=== PATIENT | male | born 1935 | race Caucasian/White ===

== ENCOUNTER 2025-05-24 12:35 | Inpatient (IN) | payer OTHER, MEDICARE, SELFPAY ==
[2025-05-24] VITALS (9 sets, daily range): BP systolic 91–128; BP diastolic 41–88; PULSE 98–129; RESP 20–96; TEMP 35.9–38.4; O2SAT 2–100
--- NOTE | 2025-05-24 12:40 | XR_ITS ---
EXAMINATION: AP chest single view TECHNIQUE: AP portable semiupright chest single view Date and time: May 24, 2025, 1321 hours, comparison December 15, 2014 INDICATION: Chest pain today. FINDINGS: Normal heart size The lungs are clear. Prominent osteopenia Minor subsegmental atelectasis left base IMPRESSION: Minor subsegmental atelectasis left base
--- NOTE | 2025-05-24 12:42 | XR_ITS ---
Examination: CT brain head without contrast. 2-D sagittal coronal reconstructions Date and time of exam: May 24, 2025, 1605 hours, comparison August 02, 2023 CTDI: vol (mGy): 47.2 DLP: (mGycm): 937 Technique: Multiple CT axial sections of the brain have been obtained, 5 mm slice thickness. Contrast has not been administered. 2-D sagittal, coronal reconstructions have been obtained Low dose protocols were performed. One or more of the following dose reduction techniques were used; automated exposure control, adjustment of the mA and/or KV according to patient size, use of iterative reconstruction technique. 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
--- NOTE | 2025-05-24 12:43 | EDNOTE_ITS ---
Altered Mental Status RME/HPI General Chief Complaint: Altered Mental Status Stated Complaint: AMS Time Seen by Provider: 05/24/25 12:40 Arrival date/time: 05/24/25 12:35 RME / HPI RME / HPI narrative: 89 year old male presents to the ED BIBA from home for evaluation of altered mental status today. Per medics, family on scene reported patient was at his usual state of health this afternoon when he suddenly became unresponsive. Additionally stated the patient has had decreased appetite for several days. Medics state when they arrived, the patient was found sitting on a recliner, cold to touch, skin mottled, and only responsive to pain. Prehospital BS 176. On arrival to ED, patient is only responsive to pain, unable to obtain any additional history. Related Data Home Medications ?Medication ?Instructions ?Recorded ?Confirmed ascorbic acid (vitamin C) 500 mg 500 mg PO QDAY SUPPLE MENT #0 tabs 07/11/14 tablet (Vitamin C) Previous Rx's ?Medication ?Instructions ?Recorded omeprazole 40 mg capsule,delayed 40 mg PO QDAY GERD ## 60 09/03/13 release Amox Tr/Potassium Clavulanate * 1 tab PO BID #14 tabs 09/10/14 (AUGMENTIN 875/125 *) doxycycline hyclate 100 mg capsule 100 mg PO BID #14 c aps 09/10/14 (Vibramycin) Zofran 4 mg ODT 1 tab PO q4hprn nausea #10 t abs 11/10/14 ibuprofen 600 mg tablet 600 mg PO Q8H PRN pain #30 t abs 08/02/23 Allergies Allergy/AdvReac Type Severity Reaction Status Date / Time codeine Allergy Severe Nausea/Vomi Verified 08/30/14 14:39 tiing promethazine Allergy Mild Verified 09/01/14 23:18 Review of Systems Review of Systems ROS Unobtainable: unobtainable due to mental status Past Medical History Past Medical History RESPIRATORY: Positive Asthma GASTROINTESTINAL: Positive Hiatal Hernia ENT: Positive Cataracts Social History SMOKING STATUS: Unknown if ever smoked ED Exam Narrative Physical exam: GENERAL APPEARANCE: Responds to painful stimuli, well-developed, well-nourished HEENT: Normocephalic, atraumatic; pupils equal, round, reactive to light; EOMI; mucous membranes pink, moist; oropharynx clear NECK: Supple LUNGS: CTABL; no wheezes, no rales, no rhonchi HEART: Tachycardic, regular rhythm; normal S1, S2; no murmurs ABDOMEN: non distended; normal BS; soft, no tenderness, no guarding, no rebound; no masses, no organomegaly, no hernia EXTREMITIES: atraumatic; no edema NEUROLOGIC: Responds to painful stimuli SKIN: Pale, mottled, cool skin. The upper left thigh and buttock has a large necrotic plaque with raised edges, measuring 25cm x 15cm. The medial thigh of the right leg is indurated with multiple <1cm areas of necrosis, buttocks covered in feces, the erythema induration and necrosis does not extend to his groin or scrotum Course Quality Measures Current suspected stage: severe sepsis Possible source: skin/soft tissue Blood cultures ordered: completed in ED Antibiotic ordered: Yes Pertinent labs: 05/24/25 05/24/25 12:48 16:48 Lactic Acid 5.6 H* mMol/L 4.3 H* mMol/L (0.4-2.0) (0.4-2.0) Procalcitonin 0.56 H ng/ml (0.0-0.49) sepsis Orders Category Date Time Status CT Screening NOW Care 05/24/25 12:[address] Screening NOW Care 05/24/25 13:11 Active Campaign Fundraiser NOW Care 05/24/25 12:40 Active EKG (ED ONLY) *Do not use* NOW Care 05/24/25 12:[address] abdomen pelvis w con Stat Exams 05/24/25 13:[address] head/brain wo con Stat Exams 05/24/25 12:42 Completed EKG (ED Only) Stat Exams 05/24/25 12:40 Ordered XR chest 1V portable Stat Exams 05/24/25 12:40 Completed ABG [Arterial Blood Gas] Stat Lab 05/24/25 13:36 Completed Ammonia Stat Lab 05/24/25 12:48 Completed B-Type Natriuretic Peptide Stat Lab 05/24/25 12:48 Completed Blood Culture (Lab) Stat Lab 05/24/25 12:48 Received CBC Stat Lab 05/24/25 12:48 Completed Comprehensive Metabolic Panel Stat Lab 05/24/25 12:48 Completed Lactate (Lactic Acid) Stat Lab 05/24/25 12:48 Completed Lactic Acid, 3 HR Stat Lab 05/24/25 16:48 Completed Lipase Stat Lab 05/24/25 12:48 Completed Magnesium Stat Lab 05/24/25 12:48 Completed Partial Thromboplastin Time Stat Lab 05/24/25 12:48 Completed Procalcitonin Stat Lab 05/24/25 12:48 Completed Prothrombin Time with INR Stat Lab 05/24/25 12:48 Completed Troponin I Stat Lab 05/24/25 12:48 Completed Urinalysis Stat Lab 05/24/25 13:55 Completed Urine Culture Stat Lab 05/24/25 13:55 Received Acetaminophen Ivpb [Ofirmev Inj] Med 05/24/25 14:15 Discontinued 1,000 mg in 100 ml IV X1 Piper/Tazo 3.375 gm Premix [Zosyn] Med 05/24/25 14:11 Discontinued 3.375 gm in 50 ml IV X1 Sodium Chloride 0.9% 1000 ml [Ns] 1,000 ml Med 05/24/25 12:41 Discontinued IV 999 mls/hr Sodium Chloride 0.9% 1000 ml [Ns] 1,000 ml Med 05/24/25 14:17 Discontinued IV 999 mls/hr Vancomycin/Ns 1 gm Ivpb 200 ml Med 05/24/25 14:11 Discontinued IV X1 Vital Signs Vital signs: Vital Signs Temperature 101.1 F H 05/24/25 12:41 Pulse Rate 128 H 05/24/25 12:41 Respiratory Rate 25 H 05/24/25 12:41 Blood Pressure 91/41 L 05/24/25 12:41 Oxygen Delivery Method Oxy Mask 05/24/25 12:41 Oxygen Flow Rate 15 05/24/25 12:41 Altered Mental Status MDM Narrative MDM Narrative:: Gilda Capps am scribing for and in the presence of Dr. Carroll. Patient data External records reviewed:: [facility] previous records and EMS form Clinical information provided by:: EMS Social determinants that could affect healthcare access:: none Patient has the following chronic illnesses:: Per EMR review, pt has documented history of dementia How is presenting disease/condition affected by chronic disease/condition?: exacerbated by Evaluation data The following diagnostics were reviewed and interpreted by me:: lab results, radiology exam(s) and EKG tracing(s) (EKG @ 12:44 PM, sinus tachycardia with occasional ventricular premature complexes, rate 128, no STEMI. ) Lab and/or radiology exams considered but not ordered:: None Interpretation Summary: Ordering Physician: Ananya Carroll MD Date of Service: 05/24/25 Procedure(s): XR chest 1V portable Accession Number(s): [id number] cc: Anish Diamond MD; Ananya Carroll MD~ EXAMINATION: AP chest single view TECHNIQUE: AP portable semiupright chest single view Date and time: May 24, 2025, 1321 hours, comparison December 15, 2014 INDICATION: Chest pain today. FINDINGS: Normal heart size The lungs are clear. Prominent osteopenia Minor subsegmental atelectasis left base IMPRESSION: Minor subsegmental atelectasis left base Dictated By: Anish Diamond MD Signed By: <Electronically signed by Anish Diamond MD in OV> 05/24/25 1337 Medications / Prescriptions Medications or Prescriptions considered but not ordered:: None Medication administrations:: Medication Administration History Discontinued Medications Sodium Chloride (Ns) 1,000 mls @ 999 mls/hr IV .Q1H1M ONE Stop: 05/24/25 13:41 Last Infusion: 05/24/25 13:58 Dose: Infused Documented By: Admin: 05/24/25 13:03 Dose: 999 mls/hr Documented By: ER Vancomycin/Sodium Chloride (Vancomycin/Ns 1 Gm Ivpb) 200 mls @ 120 mls/hr IV X1 ONE Stop: 05/24/25 15:50 Last Infusion: 05/24/25 17:30 Dose: Infused Documented By: Admin: 05/24/25 15:48 Dose: 120 mls/hr Documented By: ER Piperacillin/Tazobactam/Dextrose (Zosyn) 3.375 gm in 50 mls @ 100 mls/hr IV X1 ONE; Protocol Stop: 05/24/25 14:40 Last Infusion: 05/24/25 15:46 Dose: Infused Documented By: Admin: 05/24/25 15:15 Dose: 100 mls/hr Documented By: ER Acetaminophen (Ofirmev Inj) 1,000 mg in 100 mls @ 250 mls/hr IV X1 ONE Stop: 05/24/25 14:38 Last Infusion: 05/24/25 15:17 Dose: Infused Documented By: Admin: 05/24/25 14:55 Dose: 250 mls/hr Documented By: GADIEL Sodium Chloride (Ns) 1,000 mls @ 999 mls/hr IV .Q1H1M ONE Stop: 05/24/25 15:17 Last Infusion: 05/24/25 15:46 Dose: Infused Documented By: Admin: 05/24/25 15:03 Dose: 999 mls/hr Documented By: GADIEL See above Consultations Consultation(s) initiated? (list below): Yes Consultation #1 (Physician, Specialty, Details): See MDM Diagnosis Most likely diagnosis given after review of the tests above:: Sepsis Pneumonia Cellulitis Admission Indicated Admission indicated?: indicated Admission Request Was there a request for admission?: Yes Admission Attestation Admission request attestation: Discussed case with [] from Hospitalist service regarding admission. Discussed patients ED course, exam findings, labs, and radiology results. The Hospitalist [agrees,declines] to accept the patient for admission. Disposition Plan Disposition Plan: Admit Discharge Plan Plan Patient Disposition: Admit Acute Care w/in Hospital Prescriptions/Referrals Prescriptions/Med Rec: No Action omeprazole 40 MG capsule,delayed release(DR/EC) 40 mg PO QDAY Qty: 60 0RF ascorbic acid (vitamin C) [Vitamin C] 500 MG tablet 500 mg PO QDAY Qty: 0 Amox Tr/Potassium Clavulanate * (AUGMENTIN 875/125 *) 1 TAB tablet 1 tab PO BID Qty: 14 0RF doxycycline hyclate [Vibramycin] 100 MG capsule 100 mg PO BID Qty: 14 0RF Rx Instructions: FOR INFECTION Zofran 4 mg ODT 1 tab PO q4hprn nausea Qty: 10 0RF ibuprofen 600 mg tablet 600 mg PO Q8H PRN (Reason: pain) Qty: 30 0RF Referrals: No Primary/Family,Physician [Primary Care Provider] - In 1 week Problem List Clinical Impression: Sepsis, Pneumonia, Cellulitis Patient/Caregiver Discharge Instructions Print Language: Kiswahili Stand Alone Forms: Melinda Award Info., Patient Portal Info Letter
[2025-05-24] MEDS: SODIUM CHLORIDE 0.9% 1000 ML 1,000 ML 999 ML IV ×2 (13:03→15:03)
--- NOTE | 2025-05-24 13:10 | XR_ITS ---
Examination: CT abdomen with intravenous contrast CT pelvis with intravenous contrast 2-D coronal reconstructions 2-D sagittal reconstructions Date and time of exam: May 24, 2025, 1610 hours, comparison November 10, 2014 INDICATIONS: Sepsis alert, skin necrosis in the groin region. CTDI: vol (mGy) 9.22 DLP: (mGycm) 623 Technique: Multiple axial sections of the abdomen and pelvis have been obtained. 64 slice high-resolution scanner used. 3 mm axial sections have been obtained, post intravenous injection 40 cc [id number] 2-D sagittal, coronal reconstructions obtained. Low dose protocols were performed. One or more of the following dose reduction techniques were used; automated exposure control, adjustment of the mA and/or KV according to patient size, use of iterative reconstruction technique. Findings: Significant pneumonia left base Retrocardiac gastric hernia Liver irregular in contour Absent gallbladder No common bile duct stones Spleen not enlarged Fatty replacement and atrophy pancreas Bilateral renal cysts, the largest left kidney 7 cm Aorta normal size No bowel obstruction Colonic diverticulosis, no diverticulitis Moderate stool in the rectum Moderate prostatomegaly Urinary bladder wall shows thickening, bladder contracted Edema in the subcutaneous fatty tissue medial thigh with skin thickening No soft tissue abscess Chronic erosion posterior left iliac bone, axial image 189, measuring 11 mm, noted on the 2014 study IMPRESSION: Significant pneumonia left base Cirrhosis pattern Bilateral benign renal cysts Mild thickening of the urinary bladder wall Cellulitis pattern in the medial left upper thigh No soft tissue abscess Negative for osteomyelitis
--- NOTE | 2025-05-24 13:10 | PC.NURSE ---
at bedside states she called EMS due to she is no longer to take care of patient. states that patient is stubborn and has not been seeking medical attention; states that patient has no medical hx, and takes no Rx medications.
[2025-05-24 13:11] LABS: Basophils # (Auto) 0.1 Thou/mm3 (0.0-0.2); Basophils % (Auto) 0 % (0-2.5); Eosinophils # (Auto) 0.0 Thou/mm3 (0.0-0.5); Eosinophils % (Auto) 0 % (0-10); Hematocrit 51.2 % (41.0-53.0); Hemoglobin 16.9 g/dL (13.5-16.0); Immature Granulocytes Auto 0.47 Thou/mm3 (0.00-0.00); Lymphocytes # (Auto) 1.1 Thou/mm3 (1.0-4.8); Lymphocytes % (Auto) 6 % (10-50); Mean Corpuscular HGB Conc 33.0 g/dl (31.0-37.0); Mean Corpuscular Hemoglobin 30.8 pg (25.0-35.0); Mean Corpuscular Volume 93 fL (80-100); Monocytes # (Auto) 3.8 Thou/mm3 (0.0-0.8); Monocytes % (Auto) 20 % (0-12); Neutrophils # (Auto) 13.2 Thou/mm3 (1.8-7.7); Neutrophils % (Auto) 71 % (37-80); Nucleated Red Blood Cell # 0.02 Thou/mm3 (0.00-0.00); Nucleated Red Blood Cell % 0 /100 WBC (0); Platelet Count 235 Thou/mm3 (140-440); RDW Standard Deviation 48.6 fL (35.1-43.9); Red Blood Count 5.48 Miln/mm3 (4.50-5.90); White Blood Count 18.6 Thou/mm3 (3.8-10.6)
[2025-05-24 13:13] LABS: Lactate (Lactic Acid) 5.6 mMol/L (0.4-2.0)
[2025-05-24 13:35] LABS: Ammonia 49 uMol/L (11-32)
[2025-05-24 13:43] LABS: Base Excess -8 (-3-3); HCO3 15 mEq/L (20-26); Inspired O2, VO2 Liters 15 L/min; O2 Saturation 99 % (91-98); PCO2 25 mmHg (32.0-48.0); PO2 153 mmHg (83-108); pH, Arterial 7.39 (7.35-7.45)
[2025-05-24 13:50] LABS: B-Type Natriuretic Peptide 49 pg/mL (0-100)
[2025-05-24 14:04] LABS: Collection Type, Urine Catheter
[2025-05-24 14:07] LABS: Allen Test Performed/OK; Puncture Site Left Radial
[2025-05-24 14:08] LABS: INR 1.4 (0.9-1.3); Partial Thromboplastin Time 33.3 Seconds (22.0-36.0); Prothrombin Time 14.6 Seconds (9.0-12.2)
[2025-05-24 14:34] LABS: Bacteria,Urine Rare; Bilirubin,Urine Negative (Negative); Blood,Urine Negative (Negative); Color,Urine Yellow (Lt Yel-Yel); Glucose, Urine Negative (Negative); Granular Casts,Urine 1 /hpf (0-1); Hyaline Casts,Urine 1 /hpf (0-1); Ketones,Urine Negative (Negative); Leukocyte Esterase,Urine Negative (Negative); Nitrite,Urine Negative (Negative); PH,Urine 6.0 (5.0-7.0); Protein,Urine 1+ (Neg - Trace); RBC,Urine 3 /hpf (0-3); Specific Gravity,Urine 1.023 (1.001-1.035); Squamous Epithelial Cell,Urine 3 /hpf (0-5); Urobilinogen,Urine 4.0 mg/dL (0.0-1.0); WBC,Urine 1 /hpf (0-5)
[2025-05-24 14:36] LABS: Clarity,Urine Hazy (Clear/Hazy)
[2025-05-24] MEDS: ACETAMINOPHEN IVPB 1,000 MG/100 ML VIAL 250 MG IV (14:55)
[2025-05-24 14:59] LABS: Alanine Aminotransferase 57 U/L (10-49); Albumin, Serum 4.2 gm/dL (3.4-4.8); Albumin/Globulin Ratio 1.4 (1.2-2.2); Alkaline Phosphatase 71 U/L (46-116); Anion Gap 15 (7-16); Aspartate Amino Transferase 90 U/L (0-34); BUN/Creatinine Ratio 34 Ratio (12-20); Blood Urea Nitrogen 72 mg/dL (9-23); Calcium 8.8 mg/dL (8.3-10.6); Calcium (Corrected) 8.8 mg/dL (8.5-10.1); Carbon Dioxide 21.3 mMol/L (20.0-31.0); Chloride 112 mMol/L (98-107); Creatinine (Component) 2.1 mg/dL (0.6-1.3); Estimated Creatinine Clearance 0.9 mL/min (>60); Globulin 3.0 gm/dL (2.3-3.5); Glucose 155 mg/dL (74-106); Lipase 19 U/L (12-53); Magnesium 3.2 mg/dL (1.6-2.6); Osmolality,Calculated 318 (275-295); Potassium 4.8 mMol/L (3.4-5.1); Procalcitonin 0.56 ng/ml (0.0-0.49); Sodium 148 mMol/L (136-145); Total Protein 7.2 gm/dL (5.7-8.2); eGFR 30 See Note
[2025-05-24 15:04] LABS: Troponin I 0.145 ng/mL (0.0-0.045)
[2025-05-24 15:12] LABS: Bilirubin,Total 1.8 mg/dL (0.3-1.2)
[2025-05-24] MEDS: PIPER/TAZO 3.375 GM PREMIX 3.375 GM/50 ML BAG IV ×2 (15:15→23:40)
[2025-05-24] MEDS: VANCOMYCIN/NS 1 GM IVPB 200 ML IV (15:48)
[2025-05-24 15:55] LABS: Reflex Lactate? Y
[2025-05-24 17:24] LABS: Lactic Acid, 3 HR 4.3 mMol/L (0.4-2.0)
--- NOTE | 2025-05-24 18:43 | ESHP_ITS ---
<Statement entered by Ariel Reza MD - 05/24/25 19:41> Patient was examined and case was reviewed with team including attending physician. Note reviewed, I agree with most of its contents and agree with the patient's care as documented by Dr. Meredith 89-year-old male who was brought in from the ED due to altered mental status. According to EMS report patient was found laying on the floor covered in his own feces found to be unresponsive, lethargic. Patient was unable to provide any further history and declined any examination. Patient will be admitted for acute encephalopathy likely of infectious etiology including cellulitis ulcers of the left thigh, and left leg pneumonia versus other etiologies including cirrhosis. On arrival to the ED patient was found to be hypotensive, tachycardic, tachypneic with elevated white count, lactic acid elevated procalcitonin. Patient will be started on broad-spectrum antibiotics namely vancomycin and Zosyn cultures will be obtained and wound care will be ordered. Additionally patient received 2 L of IV fluids which improved the hypotension to normotension although still, soft will complete sepsis bolus of 30 cc/kg and will add an additional liter of fluids at this time. Will trend lactic acid and follow-up CK. Case discussed with my attending Dr. Deep Reza MD PGY-2 Disclaimer: Despite multiple revisions, due to the dictation software being used, the document bellow may not be free of grammatical errors including phonetic/typographic errors. However, this does not deter from our commitment to providing health care in the patient's best interest in mind. Documentation for date of: 05/24/25 HPI History of Present Illness History of present illness: The patient is an 89-year-old male who presents to the ED [facility] (brought in by ambulance) from home for evaluation of altered mental status. According to family and EMS report, the patient was at his usual state of health earlier today but suddenly became unresponsive. The family noted decreased appetite for the past several days. Upon EMS arrival, the patient was found sitting on a recliner, cold to the touch, with mottled skin, and was only responsive to pain. Prehospital blood sugar was 176. On ED arrival, the patient remained unresponsive to verbal stimuli and was only responsive to painful stimuli. No further history was obtained as the patient was unable to provide any additional information. Past Medical History: unknown at this time. Medications: * Unknown at this time (patient is unable to provide a current medication list) Allergies: * Unknown at this time Social History: * Smoking: Unknown * Alcohol: Likely given history of cirrhosis * Drug Use: Unknown * Living Situation: Home (family reports usual state of health prior to the event) Family History: * Unknown (due to lack of details from the family during the initial evaluation) Review of Systems: * Constitutional: Altered mental status, decreased appetite, recent unresponsiveness * Cardiovascular: No chest pain, tachycardic on exam * Respiratory: No current shortness of breath * Gastrointestinal: No nausea or vomiting reported, recent decreased appetite * Genitourinary: No dysuria, mild bladder wall thickening on imaging * Neurologic: Altered mental status, unresponsive to verbal stimuli, significant atrophy, 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 Well-developed, well- nourished. HEENT: Normocephalic, atraumatic. Pupils equal, round, reactive to light. EOMI. Mucous membranes pink, moist. Oropharynx clear. Neck: Supple. Lungs: Clear to auscultation bilaterally, no wheezes, rales, or rhonchi. Heart: Tachycardic, regular rhythm. Normal S1, S2. No murmurs. Abdomen: Soft, non-distended. Normal bowel sounds. No tenderness, guarding, or rebound. No masses or organomegaly. Extremities: No edema, atraumatic. Left thigh shows large necrotic plaque, and right thigh has induration with necrotic areas. Neurologic: The patient is only responsive to painful stimuli. Skin: Pale, mottled, cool skin. Left thigh shows a large necrotic plaque (25x15 cm). Right thigh shows multiple areas of necrosis. The back has an ulcer, and the buttocks are covered in feces. Results: Labs 06/01/25 04:15 06/01/25 04:15 Labs: Short CBC 05/24/25 Range/Units 12:48 WBC 18.6 H (3.8-10.6) Thou/mm3 Hgb 16.9 H (13.5-16.0) g/dL Hct 51.2 (41.0-53.0) % Plt Count 235 (140-440) Thou/mm3 BMP 05/24/25 12:48 Sodium 148 H Potassium 4.8 Chloride 112 H Carbon Dioxide 21.3 BUN 72 H Creatinine 2.1 H Glucose 155 H Calcium 8.8 Cardiac Enzymes 05/24/25 Range/Units 12:48 Troponin I 0.145 H* (0.0-0.045) ng/mL Liver Function 05/24/25 Range/Units 12:48 Total Bilirubin 1.8 H (0.3-1.2) mg/dL AST 90 H (0-34) U/L ALT 57 H (10-49) U/L Alkaline Phosphatase 71 (46-116) U/L Albumin 4.2 (3.4-4.8) gm/dL Urine 05/24/25 Range/Units 13:55 Urine Color Yellow (Lt Yel-Yel) Urine Clarity Hazy (Clear/Hazy) Urine pH 6.0 (5.0-7.0) Ur Specific [place] 1.023 (1.001-1.035) Urine Protein 1+ A (Neg - Trace) Urine Glucose (UA) Negative (Negative) ABG Interpretation ABG results: 05/24/25 13:36 ABG pH 7.39 ABG pCO2 25 L ABG pO2 153 H ABG HCO3 15 L ABG O2 Saturation 99 H ABG Base Excess -8 L Quality Measures Quality Measures sepsis Current suspected stage: sepsis Possible source: skin/soft tissue Blood cultures ordered: completed in ED Antibiotic ordered: Yes Advance care planning discussed with:: patient Medications Home Medications and Allergies Home Medications ?Medication ?Instructions ?Recorded ?Confirmed ?Type ascorbic acid (vitamin C) 500 mg 500 mg PO QDAY SUPPLE MENT #0 tabs 07/11/14 05/24/25 History tablet (Vitamin C) Allergies Allergy/AdvReac Type Severity Reaction Status Date / Time codeine Allergy Severe Nausea/Vomi Verified 08/30/14 14:39 tiing promethazine Allergy Mild Verified 09/01/14 23:18 Visit Medications Acetaminophen (Acetaminophen Supp 650 Mg Supp) 650 mg GA Q6HR PRN PRN Reason: Fever > 100.4 or pain 1-5 Stop: 06/23/25 18:26 Heparin Sodium (Porcine) (Heparin Sod Inj 5000 Unit/Ml Vial) 5,000 unit SC Q12HR ODILIA Stop: 06/07/25 20:59 Piperacillin/Tazobactam/Dextrose (Zosyn) 50 mls @ 100 mls/hr IV Q8HR ODILIA; Protocol Stop: 05/31/25 18:27 Sodium Chloride (Ns) 1,000 mls @ 75 mls/hr IV .[id number] ODILIA Stop: 06/23/25 18:29 Ondansetron HCl (Ondansetron Inj 2 Mg/Ml Inj 2 Ml) 4 mg IVP Q6H PRN; Protocol PRN Reason: NAUSEA OR VOMITING Stop: 06/23/25 18:26 Pantoprazole Sodium (Pantoprazole Inj 40 Mg Vial) 40 mg IVP QDAY ODILIA Stop: 06/23/25 18:44 Pharmacy Consult (Vancomycin Pharmacy To Dose 1 Each Each) 1 each IV QDAY ODILIA Stop: 06/23/25 18:29 Tramadol HCl (Tramadol Hcl 50 Mg Tablet) 50 mg PO Q6HR PRN PRN Reason: Pain Scale 6-10 Stop: 05/29/25 18:26 Discontinued Medications Sodium Chloride (Ns) 1,000 mls @ 999 mls/hr IV .Q1H1M ONE Stop: 05/24/25 13:41 Last Infusion: 05/24/25 13:58 Dose: Infused Vancomycin/Sodium Chloride (Vancomycin/Ns 1 Gm Ivpb) 200 mls @ 120 mls/hr IV X1 ONE Stop: 05/24/25 15:50 Last Infusion: 05/24/25 17:30 Dose: Infused Piperacillin/Tazobactam/Dextrose (Zosyn) 3.375 gm in 50 mls @ 100 mls/hr IV X1 ONE; Protocol Stop: 05/24/25 14:40 Last Infusion: 05/24/25 15:46 Dose: Infused Acetaminophen (Ofirmev Inj) 1,000 mg in 100 mls @ 250 mls/hr IV X1 ONE Stop: 05/24/25 14:38 Last Infusion: 05/24/25 15:17 Dose: Infused Sodium Chloride (Ns) 1,000 mls @ 999 mls/hr IV .Q1H1M ONE Stop: 05/24/25 15:17 Last Infusion: 05/24/25 15:46 Dose: Infused Assessment & Plan Plan 89M with severe sepsis secondary to suspected necrotizing soft tissue infection and LLL pneumonia, presenting with extensive necrotic lesions, lactic acidosis, JOAN, and severe encephalopathy, SOFA 9, currently not in shock but at high risk of progression. # Severe Sepsis without shock 89-year-old male presenting with severe sepsis secondary to Suspected necrotizing soft tissue infection (possible necrotizing fasciitis vs extensive necrotic cellulitis) involving the left upper thigh/buttock (25?15 cm necrotic plaque) and medial right thigh necrotic lesions Associated with altered mental status, mottled cool skin, lactic acidosis (5.6 - > 4.3), WBC 18.6, and acute kidney injury. Patient is only responsive to painful stimuli, indicating sepsis-associated encephalopathy?. Skin findings are extensive and highly concerning for a rapidly progressive deep soft tissue infection. SOFA score: 9 (Resp 2, Liver 1, KNITTING INSPECTOR 4, Renal 1, CV 1). LRINEC score: 4 Low risk, but not no risk. Plan: * Continue Vancomycin + Zosyn 3.375 Q8h (05/24- ) * Trend lactate q6h until <2. * Maintain MAP >65; upgrade to icu only if resistant hypotension develops (currently not in shock). * Strict I/Os * Blood cultures ?2 pending * Daily CBC, CMP, coagulation studies. * Continuous monitoring for progression of sepsis, worsening perfusion, or mental status deterioration. # Soft Tissue Infection Large necrotic plaque (25?15 cm) on left thigh/buttock and multiple right thigh necrotic lesions, mottled skin, severe systemic toxicity No current concern for Necrotizing fascitis No abscess or osteomyelitis on CT abdomen/pelvis, but CT cannot rule out nec fasc. If clinically worsens will reevaluate and consider consult [place] Plan: * Will consider General Surgery consultation if worsens. * Continue broad-spectrum antibiotics as above. * Daily wound checks # Left Lower Lobe Pneumonia CT abdomen/pelvis shows significant left-base pneumonia, likely contributing to sepsis. Procalcitonin 0.56 supports bacterial infection. Plan: * Continue Zosyn 3.375 Q8H * Repeat CXR in 24 hrs or earlier if clinical decline. * Evaluate for possible aspiration (see separate problem below). # Sepsis-Associated Encephalopathy Profound AMS; only responsive to painful stimuli on presentation, when seen patient he responded to verbal after waking patient up physically No acute intracranial hemorrhage or stroke on CT head. Likely due to sepsis, metabolic derangements, and hypoperfusion. Plan: * Serial neuro exams. * Avoid sedating or neurotoxic medications. * Repeat CT if AMS does not improve with sepsis treatment. # Acute Kidney Injury Cr 2.1, GFR 30, BUN 72. Baseline unknown. Likely pre-renal from sepsis, hypoperfusion, and dehydration. Plan: * Continue IV fluid resuscitation. * Trend BMP daily. * Will consider consult nephrology if worsening or oliguria develops. * Adjust all renally cleared medications. # Cirrhosis Pattern (suspected based on CT) CT abdomen shows cirrhosis pattern Ammonia mildly elevated at 49; could contribute to encephalopathy but cannot diagnose without clinical history. Plan: * Trend liver function tests. * Trend ammonia in am * Consider lactulose after sepsis and metabolic causes addressed. * GI consult if clinical suspicion rises. # Aspiration Risk Several days of poor intake + acute AMS -> high risk for macroaspiration. CT shows LLL pneumonia, possible aspiration component. Plan: * Keep NPO until mental status improves. * Ordered swallow eval once appropriate. * Antibiotic coverage adequate for aspiration. # Lactic Acidosis Lactate 5.6 -> 4.3, improving with fluids. Indicative of tissue hypoperfusion from severe sepsis. Plan: * Continue resuscitation. * Trend q6h until <2. * Treat underlying infection sources. # Electrolyte Abnormalities Na 148, Cl 112, Mg 3.2. Plan: * Monitor electrolytes daily. * Replace as needed. # Elevated Troponin (likely demand ischemia) Troponin 0.145 in setting of systemic illness No evidence of ACS on imaging/initial evaluation. Plan: * Trend troponin q6h. * Tele monitoring. * No anticoagulation unless dynamic rise. # Malnutrition Risk Several days of decreased appetite, cachectic appearance, frailty. Plan: * Nutrition consult once stabilized. * NPO until AMS improves. * Consider NG if prolonged poor intake. Health Maintenance: Disposition: Admit to telemetry for monitoring Feeding: NPO until mental status improves. Thromboprophylaxis: Heparin SQ Q12hr GI Prophylaxis: IV Protonix. Code Status: Full code; reassess if prognosis changes. Antibiotic: Vanc and zosyn [05/24- ] ----- Plan discussed with attending physician Dr. Adame and senior resident Dr. Shamar Meredith MD PGY-1 Internal Medicine Attending Provider Attestation/Addendum I have examined the patient, reviewed labs and imaging findings, discussed the case with the resident(s), and reviewed entered orders. I agree with the plan of care as outlined in this note, with these additional summaries/recommendations: After examination of the patient and review of the clinical data, I feel that this patient needs admission to the hospital for further treatment and evaluation. Dr. Deep MD
[2025-05-24] MEDS: SODIUM CHLORIDE 0.9% 1000 ML 1,000 ML 75 ML IV (19:23)
[2025-05-24 19:26] LABS: Creatine Kinase 227 U/L (34-171)
[2025-05-24 19:32] LABS: Troponin I 0.166 ng/mL (0.0-0.045)
[2025-05-24 20:08] LABS: Lactate (Lactic Acid) 3.4 mMol/L (0.4-2.0)
[2025-05-24 20:33] LABS: Ammonia 41 uMol/L (11-32)
[2025-05-24 21:11] LABS: COVID-19 Antigen (In-House) Positive (Negative)
[2025-05-24 21:20] LABS: C-Reactive Protein 11.4 mg/dL (0.0-0.9)
[2025-05-24] MEDS: SODIUM CHLORIDE 0.9% 1000 ML 1,000 ML 100 ML IV (21:23)
[2025-05-24 22:00] LABS: Albumin, Serum 3.4 gm/dL (3.4-4.8); Anion Gap 14 (7-16); BUN/Creatinine Ratio 31 Ratio (12-20); Blood Urea Nitrogen 49 mg/dL (9-23); Calcium 8.0 mg/dL (8.3-10.6); Calcium (Corrected) 8.5 mg/dL (8.5-10.1); Carbon Dioxide 18.8 mMol/L (20.0-31.0); Chloride 118 mMol/L (98-107); Creatinine (Component) 1.6 mg/dL (0.6-1.3); Estimated Creatinine Clearance 26.1 mL/min (>60); Glucose 130 mg/dL (74-106); Osmolality,Calculated 314 (275-295); Phosphorous 4.1 mg/dL (2.4-5.1); Potassium 4.4 mMol/L (3.4-5.1); Sodium 151 mMol/L (136-145); eGFR 41 See Note
[2025-05-24] MEDS: HEPARIN SOD INJ 5000 UNIT/ML VIAL SC (22:19)
[2025-05-24 23:05] LABS: Reflex Lactate? Y
[2025-05-25] VITALS (15 sets, daily range): BP systolic 94–127; BP diastolic 51–85; PULSE 82–129; RESP 20–100; TEMP 36.1–38.3; O2SAT 92–100; BMI 19.4
[2025-05-25 00:52] LABS: Lactic Acid, 3 HR 2.4 mMol/L (0.4-2.0)
[2025-05-25 01:41] LABS: Troponin I 0.127 ng/mL (0.0-0.045)
--- NOTE | 2025-05-25 03:47 | EKG_ITS ---
[facility] Test Date: 2025-05-25 Pat Name: DAHLIA SANCHEZ [facility] Male [employer]: [id number] : [id number] Requested By: Rosalino Woods Order Number: [id number] Reading MD: Rosalino Woods Measurements Intervals [place] Rate: 139 P: ND: QRS: 8 QRSD: 91 T: 85 QT: 294 QTc: 448 Interpretive Statements ATRIAL FIBRILLATION WITH RAPID VENTRICULAR RESPONSE NONSPECIFIC ST & T-WAVE ABNORMALITY ABNORMAL RHYTHM ECG Compared to ECG 08/02/2023 20:37:05 T-wave abnormality now present Sinus rhythm no longer present /store/S0/[id number].pdf
[2025-05-25] MEDS: AMIODARONE 150 MG IVPB 150 MG/100 ML BAG 600 MG IV (04:22)
[2025-05-25] MEDS: AMIODARONE 360 MG IVPB 360 MG/200 ML BAG 33.333 MG IV (04:49)
[2025-05-25 04:52] LABS: Lactate (Lactic Acid) 2.7 mMol/L (0.4-2.0)
[2025-05-25 04:58] LABS: Basophils # (Auto) 0.1 Thou/mm3 (0.0-0.2); Basophils % (Auto) 0 % (0-2.5); Eosinophils # (Auto) 0.0 Thou/mm3 (0.0-0.5); Eosinophils % (Auto) 0 % (0-10); Hematocrit 42.4 % (41.0-53.0); Hemoglobin 13.6 g/dL (13.5-16.0); Immature Granulocytes Auto 0.27 Thou/mm3 (0.00-0.00); Lymphocytes # (Auto) 1.5 Thou/mm3 (1.0-4.8); Lymphocytes % (Auto) 9 % (10-50); Mean Corpuscular HGB Conc 32.1 g/dl (31.0-37.0); Mean Corpuscular Hemoglobin 30.2 pg (25.0-35.0); Mean Corpuscular Volume 94 fL (80-100); Monocytes # (Auto) 1.8 Thou/mm3 (0.0-0.8); Monocytes % (Auto) 11 % (0-12); Neutrophils # (Auto) 13.1 Thou/mm3 (1.8-7.7); Neutrophils % (Auto) 78 % (37-80); Nucleated Red Blood Cell # 0.00 Thou/mm3 (0.00-0.00); Nucleated Red Blood Cell % 0 /100 WBC (0); Platelet Count 170 Thou/mm3 (140-440); RDW Standard Deviation 48.1 fL (35.1-43.9); Red Blood Count 4.50 Miln/mm3 (4.50-5.90); White Blood Count 16.7 Thou/mm3 (3.8-10.6)
[2025-05-25 05:17] LABS: Glucose Estimated Average 114 mg/dL (80-131); Hemoglobin A1C 5.6 % Hgb (4.8-6.0)
[2025-05-25 05:46] LABS: Alanine Aminotransferase 34 U/L (10-49); Albumin, Serum 3.2 gm/dL (3.4-4.8); Alkaline Phosphatase 58 U/L (46-116); Anion Gap 11 (7-16); Aspartate Amino Transferase 90 U/L (0-34); BUN/Creatinine Ratio 29 Ratio (12-20); Bilirubin,Total 1.3 mg/dL (0.3-1.2); Blood Urea Nitrogen 44 mg/dL (9-23); Calcium 8.1 mg/dL (8.3-10.6); Calcium (Corrected) 8.7 mg/dL (8.5-10.1); Carbon Dioxide 21.4 mMol/L (20.0-31.0); Chloride 122 mMol/L (98-107); Creatinine (Component) 1.5 mg/dL (0.6-1.3); Estimated Creatinine Clearance 27.9 mL/min (>60); Glucose 107 mg/dL (74-106); Magnesium 2.6 mg/dL (1.6-2.6); Osmolality,Calculated 316 (275-295); Phosphorous 3.6 mg/dL (2.4-5.1); Potassium 4.3 mMol/L (3.4-5.1); Sodium 154 mMol/L (136-145); Thyroid Stimulating Hormone 2.18 uIU/mL (0.55-4.78); eGFR 44 See Note
[2025-05-25] MEDS: PIPER/TAZO 3.375 GM PREMIX 3.375 GM/50 ML BAG IV ×4 (06:03→23:27)
[2025-05-25 06:16] LABS: Troponin I 0.134 ng/mL (0.0-0.045)
[2025-05-25] MEDS: HEPARIN SOD INJ 5000 UNIT/ML VIAL 4700 UNIT IV (06:39)
[2025-05-25] MEDS: Heparin/D5w 25K 250 ML Ivpb 25,000 UNIT/250 ML BAG 10.622 UNIT IV (06:40)
[2025-05-25 06:52] LABS: Partial Thromboplastin Time 35.8 Seconds (22.0-36.0)
[2025-05-25 07:49] LABS: Reflex Lactate? Y
[2025-05-25] MEDS: RINGERS LACTATED 1000 ML 1,000 ML 999 ML IV (07:59)
[2025-05-25 08:02] LABS: Cardiac Risk Estimate 6.6 RATIO (4.0-6.7); Cholesterol 105 mg/dL (132-200); HDL Cholesterol 16 mg/dL (40-60); LDL Cholesterol,Calculated 60 mg/dL (0-130); Triglycerides 147 mg/dL (30-150); Vancomycin,Random 12.2 mcg/mL
[2025-05-25 08:44] LABS: Lactic Acid, 3 HR 3.9 mMol/L (0.4-2.0)
--- NOTE | 2025-05-25 10:35 | XR_ITS ---
EXAMINATION: AP chest single view TECHNIQUE: Portable AP sitting chest single view Date and time: May 25, 2025, 1046 hours, comparison May 24, 2025 INDICATIONS: Shortness of breath today. FINDINGS: Subtle interstitial disease in the lungs Normal heart size Prominent osteopenia IMPRESSION: Subtle interstitial disease in the lungs, differential would include pneumonia, consider CT chest without contrast follow-up
[2025-05-25] MEDS: VANCOMYCIN/NS 500 MG IVPB 100 ML 120 MG IV (10:55)
[2025-05-25] MEDS: AMIODARONE 360 MG IVPB 360 MG/200 ML BAG 16.667 MG IV (11:16)
--- NOTE | 2025-05-25 12:09 | ESPR_ITS ---
<Statement entered by Selwyn Lazar MD - 06/07/25 09:16> I reviewed above note and agree with findings and plans. I have also personally examined the patient with medicine team and went over assessment and plan with medical team including fashion intern and resident physician. <Statement entered by Ariel Reza MD - 05/25/25 15:38> Patient was examined and case was reviewed with team including attending physician. Note reviewed, I agree with most of its contents and agree with the patient's care as documented by Dr. Rogers Patient seen today at the bedside found awake, alert, still altered. Overnight patient developed A-fib with RVR was started on heparin drip and amiodarone drip will transition to p.o. amio and Eliquis when appropriate patient already converted to sinus rhythm, general surgery was consulted for soft tissue infection, no need for surgery at this time. Patients Sodium continues to trend up will start on D5W at this time and will trend sodium. At this time we will continue IV antibiotics and follow cultures for sepsis. Case discussed with my attending Dr. Nagi Reza MD PGY-2 Disclaimer: Despite multiple revisions, due to the dictation software being used, the document bellow may not be free of grammatical errors including phonetic/typographic errors. However, this does not deter from our commitment to providing health care in the patient's best interest in mind. Documentation for date of: 05/25/25 Subjective Subjective Interval history: Patient would not allow exam, turned away, no verbal response. Affect unchanged from yesterday. Unable to participate in ROS. Wound care evaluated patient; awaiting documentation. Exam Vital Signs Temp Pulse Resp BP Pulse Ox O2 Del Method O2 Flow Rate 97.2 F 104 H 23 H 111/58 L 96 Room Air 10 05/25/25 08:00 05/25/25 11:16 05/25/25 08:00 05/25/25 11:16 05/25/25 08:00 05/25/25 08:00 05/24/25 15:22 Narrative Exam With help of ED, due to patient being uncooperative General Appearance: The patient is unresponsive to verbal stimuli, responds only to painful stimuli, and appears ill and deteriorated. Well-developed, well- nourished. HEENT: Normocephalic, atraumatic. Pupils equal, round, reactive to light. EOMI. Mucous membranes pink, moist. Oropharynx clear. Neck: Supple. Lungs: Clear to auscultation bilaterally, no wheezes, rales, or rhonchi. Heart: Tachycardic, regular rhythm. Normal S1, S2. No murmurs. Abdomen: Soft, non-distended. Normal bowel sounds. No tenderness, guarding, or rebound. No masses or organomegaly. Extremities: No edema, atraumatic. Left thigh shows large necrotic plaque, and right thigh has induration with necrotic areas. Neurologic: The patient is only responsive to painful stimuli. Skin: Pale, mottled, cool skin. Left thigh shows a large necrotic plaque (25x15 cm). The back has an ulcer, and the buttocks are covered in feces. Objective Labs 05/25/25 04:23 05/25/25 12:48 Labs: Laboratory Results - last 24 hr 05/24/25 05/24/25 05/24/25 12:48 13:36 13:55 WBC 18.6 H RBC 5.48 Hgb 16.9 H Hct 51.2 MCV 93 MCH 30.8 MCHC 33.0 RDW Std Deviation 48.6 H Plt Count 235 Neut % (Auto) 71 Lymph % (Auto) 6 L [place] % (Auto) 20 H Eos % (Auto) 0 Baso % (Auto) 0 Neut # (Auto) 13.2 H Lymph # (Auto) 1.1 [place] # (Auto) 3.8 H Eos # (Auto) 0.0 Baso # (Auto) 0.1 Immature Gran # (Auto) 0.47 H Absolute Nucleated RBC 0.02 H Immature Gran % 3 H Nucleated RBC % 0 PT 14.6 H INR 1.4 H APTT 33.3 Puncture Site Left Radial ABG pH 7.39 ABG pCO2 25 L ABG pO2 153 H ABG HCO3 15 L ABG O2 Saturation 99 H ABG Base Excess -8 L Oxygen Liter Flow 15 Sodium 148 H Potassium 4.8 Chloride 112 H Carbon Dioxide 21.3 Anion Gap 15 BUN 72 H Creatinine 2.1 H Estim Creat Clear Calc 0.9 L eGFR 30 L BUN/Creatinine Ratio 34 H Glucose [address] Glu mg/dL Hemoglobin A1c Calculated Osmolality 318 H Lactic Acid 5.6 H* Calcium 8.8 Corrected Calcium 8.8 Phosphorus Magnesium 3.2 H Total Bilirubin 1.8 H AST 90 H ALT 57 H Alkaline Phosphatase 71 Ammonia 49 H Total Creatine Kinase Troponin I 0.145 H* C-Reactive Prot, Quant B-Natriuretic Peptide 49 Total Protein 7.2 Albumin 4.2 Globulin 3.0 Albumin/Globulin Ratio 1.4 Triglycerides Cholesterol LDL Cholesterol, Calc HDL Cholesterol Cholesterol/HDL Ratio Lipase 19 Procalcitonin 0.56 H TSH Ur Collection Type Catheter Urine Color Yellow Urine Clarity Hazy Urine pH 6.0 Ur Specific [place] 1.023 Urine Protein 1+ A Urine Glucose (UA) Negative Urine Ketones Negative Urine Blood Negative Urine Nitrite Negative Urine Bilirubin Negative Urine Urobilinogen (Auto) 4.0 Ur Leukocyte Esterase Negative Urine RBC 3 Urine WBC 1 Ur Squamous Epith Cells 3 Urine Bacteria Rare Hyaline Casts 1 Granular Casts 1 Random Vancomycin SARS-CoV-2 Ag (Rapid) 05/24/25 05/24/25 05/24/25 16:48 18:51 19:40 WBC RBC Hgb Hct MCV MCH MCHC RDW Std Deviation Plt Count Neut % (Auto) Lymph % (Auto) [place] % (Auto) Eos % (Auto) Baso % (Auto) Neut # (Auto) Lymph # (Auto) [place] # (Auto) Eos # (Auto) Baso # (Auto) Immature Gran # (Auto) Absolute Nucleated RBC Immature Gran % Nucleated RBC % PT INR APTT Puncture Site ABG pH ABG pCO2 ABG pO2 ABG HCO3 ABG O2 Saturation ABG Base Excess Oxygen Liter Flow Sodium Potassium Chloride Carbon Dioxide Anion Gap BUN Creatinine Estim Creat Clear Calc eGFR BUN/Creatinine Ratio Glucose Estimated Ave Glu mg/dL Hemoglobin A1c Calculated Osmolality Lactic Acid 4.3 H* Calcium Corrected Calcium Phosphorus Magnesium Total Bilirubin AST ALT Alkaline Phosphatase Ammonia Total Creatine Kinase 227 H Troponin I 0.166 H* C-Reactive Prot, Quant 11.4 H B-Natriuretic Peptide Total Protein Albumin Globulin Albumin/Globulin Ratio Triglycerides Cholesterol LDL Cholesterol, Calc HDL Cholesterol Cholesterol/HDL Ratio Lipase Procalcitonin TSH Ur Collection Type Urine Color Urine Clarity Urine pH Ur Specific [place] Urine Protein Urine Glucose (UA) Urine Ketones Urine Blood Urine Nitrite Urine Bilirubin Urine Urobilinogen (Auto) Ur Leukocyte Esterase Urine RBC Urine WBC Ur Squamous Epith Cells Urine Bacteria Hyaline Casts Granular Casts Random Vancomycin SARS-CoV-2 Ag (Rapid) Positive A* 05/24/25 05/24/25 05/25/25 20:03 21:16 00:28 WBC RBC Hgb Hct MCV MCH MCHC RDW Std Deviation Plt Count Neut % (Auto) Lymph % (Auto) [place] % (Auto) Eos % (Auto) Baso % (Auto) Neut # (Auto) Lymph # (Auto) [place] # (Auto) Eos # (Auto) Baso # (Auto) Immature Gran # (Auto) Absolute Nucleated RBC Immature Gran % Nucleated RBC % PT INR APTT Puncture Site ABG pH ABG pCO2 ABG pO2 ABG HCO3 ABG O2 Saturation ABG Base Excess Oxygen Liter Flow Sodium 151 H Potassium 4.4 Chloride 118 H Carbon Dioxide 18.8 L Anion Gap 14 BUN 49 H Creatinine 1.6 H D Estim Creat Clear Calc 26.1 L eGFR 41 L BUN/Creatinine Ratio 31 H Glucose [address] Glu mg/dL Hemoglobin A1c Calculated Osmolality 314 H Lactic Acid 3.4 H 2.4 H Calcium 8.0 L Corrected Calcium 8.5 Phosphorus 4.1 Magnesium Total Bilirubin AST ALT Alkaline Phosphatase Ammonia 41 H Total Creatine Kinase Troponin I 0.127 H* C-Reactive Prot, Quant B-Natriuretic Peptide Total Protein Albumin 3.4 D Globulin Albumin/Globulin Ratio Triglycerides Cholesterol LDL Cholesterol, Calc HDL Cholesterol Cholesterol/HDL Ratio Lipase Procalcitonin TSH Ur Collection Type Urine Color Urine Clarity Urine pH Ur Specific [place] Urine Protein Urine Glucose (UA) Urine Ketones Urine Blood Urine Nitrite Urine Bilirubin Urine Urobilinogen (Auto) Ur Leukocyte Esterase Urine RBC Urine WBC Ur Squamous Epith Cells Urine Bacteria Hyaline Casts Granular Casts Random Vancomycin SARS-CoV-2 Ag (Rapid) 05/25/25 05/25/25 05/25/25 04:23 06:28 08:35 WBC 16.7 H RBC 4.50 Hgb 13.6 D Hct 42.4 MCV 94 MCH 30.2 MCHC 32.1 RDW Std Deviation 48.1 H Plt Count 170 D Neut % (Auto) 78 Lymph % (Auto) 9 L [place] % (Auto) 11 Eos % (Auto) 0 Baso % (Auto) 0 Neut # (Auto) 13.1 H Lymph # (Auto) 1.5 [place] # (Auto) 1.8 H Eos # (Auto) 0.0 Baso # (Auto) 0.1 Immature Gran # (Auto) 0.27 H Absolute Nucleated RBC 0.00 Immature Gran % 2 H Nucleated RBC % 0 PT INR APTT 35.8 Puncture Site ABG pH ABG pCO2 ABG pO2 ABG HCO3 ABG O2 Saturation ABG Base Excess Oxygen Liter Flow Sodium 154 H Potassium 4.3 Chloride 122 H* Carbon Dioxide 21.4 Anion Gap 11 BUN 44 H Creatinine 1.5 H Estim Creat Clear Calc 27.9 L eGFR 44 L BUN/Creatinine Ratio 29 H Glucose [address] Glu mg/dL 114 Hemoglobin A1c 5.6 Calculated Osmolality 316 H Lactic Acid 2.7 H 3.9 H Calcium 8.1 L Corrected Calcium 8.7 Phosphorus 3.6 Magnesium 2.6 Total Bilirubin 1.3 H D AST 90 H ALT 34 Alkaline Phosphatase 58 Ammonia Total Creatine Kinase Troponin I 0.134 H* C-Reactive Prot, Quant B-Natriuretic Peptide Total Protein Albumin 3.2 L Globulin Albumin/Globulin Ratio Triglycerides 147 Cholesterol 105 L LDL Cholesterol, Calc 60 HDL Cholesterol 16 L Cholesterol/HDL Ratio 6.6 Lipase Procalcitonin TSH 2.18 Ur Collection Type Urine Color Urine Clarity Urine pH Ur Specific [place] Urine Protein Urine Glucose (UA) Urine Ketones Urine Blood Urine Nitrite Urine Bilirubin Urine Urobilinogen (Auto) Ur Leukocyte Esterase Urine RBC Urine WBC Ur Squamous Epith Cells Urine Bacteria Hyaline Casts Granular Casts Random Vancomycin 12.2 SARS-CoV-2 Ag (Rapid) ABG Interpretation ABG results: 05/24/25 13:36 ABG pH 7.39 ABG pCO2 25 L ABG pO2 153 H ABG HCO3 15 L ABG O2 Saturation 99 H ABG Base Excess -8 L Quality Measures Quality Measures sepsis Current suspected stage: sepsis Possible source: skin/soft tissue Blood cultures ordered: completed in ED Antibiotic ordered: Yes Advance care planning discussed with:: patient Assessment & Plan Assessment Current Active Medications: Generic Name Dose Route Start Last Admin Trade Name Freq PRN Reason Stop Dose Admin Acetaminophen 650 mg 05/24/25 18:27 Acetaminophen Supp 650 Mg Supp LA 06/23/25 18:26 Q6HR PRN Fever > 100.4 or pain 1-5 Sodium Chloride 1,000 mls @ 100 mls/hr 05/24/25 20:04 05/24/25 21:23 Ns IV 100 mls/hr On Hold: 05/25/25 03:48 .Q10H ODILIA Administration Piperacillin/Tazobactam/Dextrose 3.375 gm in 50 mls @ 100 mls/hr 05/25/25 00:00 05/25/25 06:03 Zosyn IV 06/01/25 00:00 100 mls/hr Q6HR ODILIA Administration Protocol Amiodarone HCl/Dextrose 360 mg in 200 mls @ 16.667 mls/hr 05/25/25 04:08 05/25/25 11:16 Nexterone Ivpb IV 05/26/25 04:07 16.667 mls/hr .Q12H ODILIA Administration Heparin Sodium/Dextrose 25,000 unit in 250 mls @ 10.622 mls/hr 05/25/25 05:30 05/25/25 06:40 Heparin In D5w Ivpb IV 06/08/25 05:29 18 units/kg/hr .[id number] ODILIA 10.622 mls/hr Protocol Administration 18 UNITS/KG/HR Vancomycin/Sodium Chloride 100 mls @ 120 mls/hr 05/25/25 10:30 05/25/25 10:55 Vancomycin/Ns 500 Mg Ivpb IV 06/01/25 10:29 120 mls/hr QDAY@1000 ODILIA Administration Ondansetron HCl 4 mg 05/24/25 18:27 Ondansetron Inj 2 Mg/Ml Inj 2 Ml IVP 06/23/25 18:26 Q6H PRN NAUSEA OR VOMITING Protocol Pantoprazole Sodium 40 mg 05/24/25 18:45 05/25/25 08:00 Pantoprazole Inj 40 Mg Vial IVP 06/23/25 18:44 40 mg QDAY ODILIA Administration Pharmacy Consult 1 each 05/25/25 07:29 Vancomycin Pharmacy To Dose 1 Each Each IV 06/23/25 18:29 QDAY PRN CONSULT Tramadol HCl 50 mg 05/24/25 18:27 Tramadol Hcl 50 Mg Tablet PO 05/29/25 18:26 Q6HR PRN Pain Scale 6-10 Plan 89M with severe sepsis secondary to suspected necrotizing soft tissue infection and LLL pneumonia, presenting with extensive necrotic lesions, lactic acidosis, JOAN, and severe encephalopathy, SOFA 9, currently not in shock but at high risk of progression. # Severe Sepsis without shock 89-year-old male presenting with severe sepsis secondary to Suspected necrotizing soft tissue infection (possible necrotizing fasciitis vs extensive necrotic cellulitis) involving the left upper thigh/buttock (25?15 cm necrotic plaque) and medial right thigh necrotic lesions Associated with altered mental status, mottled cool skin, lactic acidosis (5.6 - > 4.3), WBC 18.6, and acute kidney injury. Patient is only responsive to painful stimuli, indicating sepsis-associated encephalopathy?. Skin findings are extensive and highly concerning for a rapidly progressive deep soft tissue infection. SOFA score: 9 (Resp 2, Liver 1, PER ASSESSMENT NURSE 4, Renal 1, CV 1). LRINEC score: 4 Low risk, but not no risk. Plan: * Continue Vancomycin + Zosyn 3.375 Q8h (05/24- ) * Trend lactate q6h until <2. * Maintain MAP >65; upgrade to icu only if resistant hypotension develops (currently not in shock). * Strict I/Os * Blood cultures ?2 pending * Daily CBC, CMP, coagulation studies. * Continuous monitoring for progression of sepsis, worsening perfusion, or mental status deterioration. # Soft Tissue Infection Large necrotic plaque (25?15 cm) on left thigh/buttock and multiple right thigh necrotic lesions, mottled skin, severe systemic toxicity No current concern for Necrotizing fascitis No abscess or osteomyelitis on CT abdomen/pelvis, but CT cannot rule out nec fasc. If clinically worsens will reevaluate and consider consult surgerey Plan: * Will consider General Surgery consultation if worsens. * Continue broad-spectrum antibiotics as above. * Daily wound checks # Left Lower Lobe Pneumonia CT abdomen/pelvis shows significant left-base pneumonia, likely contributing to sepsis. Procalcitonin 0.56 supports bacterial infection. Plan: * Continue Zosyn 3.375 Q8H * Repeat CXR in 24 hrs or earlier if clinical decline. * Evaluate for possible aspiration (see separate problem below). # Sepsis-Associated Encephalopathy Profound AMS; only responsive to painful stimuli on presentation, when seen patient he responded to verbal after waking patient up physically No acute intracranial hemorrhage or stroke on CT head. Likely due to sepsis, metabolic derangements, and hypoperfusion. Plan: * Serial neuro exams. * Avoid sedating or neurotoxic medications. * Repeat CT if AMS does not improve with sepsis treatment. # Acute Kidney Injury Cr 2.1, GFR 30, BUN 72. Baseline unknown. Likely pre-renal from sepsis, hypoperfusion, and dehydration. This monring Cr 1.4 Plan: * Continue IV fluid resuscitation. * Trend BMP daily. * Will consider consult nephrology if worsening or oliguria develops. * Adjust all renally cleared medications. # Cirrhosis Pattern (suspected based on CT) CT abdomen shows cirrhosis pattern Ammonia mildly elevated at 49; could contribute to encephalopathy but cannot diagnose without clinical history. Plan: * Trend liver function tests. * Consider lactulose after sepsis and metabolic causes addressed. * GI consult if clinical suspicion rises. # Aspiration Risk Several days of poor intake + acute AMS -> high risk for macroaspiration. CT shows LLL pneumonia, possible aspiration component. Plan: * Keep NPO until mental status improves. * Ordered swallow eval once appropriate. * Antibiotic coverage adequate for aspiration. # Lactic Acidosis Lactate 5.6 -> 4.3->2.7->3.9, improving with fluids. Indicative of tissue hypoperfusion from severe sepsis. Plan: * Continue resuscitation. * Trend q6h until <2. * Treat underlying infection sources. # Electrolyte Abnormalities Na 156, Cl 122, Mg 2.6. Plan: * Monitor electrolytes daily. * Replace as needed. # Elevated Troponin (likely demand ischemia) Troponin 0.145 in setting of systemic illness No evidence of ACS on imaging/initial evaluation. Last troponin 0.134 downtrending Plan: * Trend troponin q6h. * Tele monitoring. * No anticoagulation unless dynamic rise. # Malnutrition Several days of decreased appetite, cachectic appearance, frailty. Plan: * Nutrition consult once stabilized. * NPO until AMS improves. * Consider NG if prolonged poor intake. Health Maintenance: Disposition: Admit to telemetry for monitoring Feeding: NPO until mental status improves. Thromboprophylaxis: Heparin SQ Q12hr GI Prophylaxis: IV Protonix. Code Status: Full code; reassess if prognosis changes. Antibiotic: Vanc and zosyn [05/24- ] ----- Plan discussed with attending physician Dr. Lazar and senior resident Dr. Shamar Meredith MD PGY-1 Internal Medicine
[2025-05-25 13:08] LABS: Albumin/Globulin Ratio 1.1 (1.2-2.2); Globulin 2.9 gm/dL (2.3-3.5); Total Protein 6.1 gm/dL (5.7-8.2)
--- NOTE | 2025-05-25 13:09 | PC.PT ---
PT eval witheld today. Patient is confused and unable to follow commands at this time. Will try again tomorrow.
--- NOTE | 2025-05-25 13:29 | PC.SS ---
Addendum entered by Joann Baugh 05/27/25 08:57: SS reached out to pt dtr Rosalinda in regards to options for SNF, per Rosalinda they wish to use [facility]. SS reached out to [facility] via [facility], pending response Original Note: SS received a call from Cristel EDWARDS that pt family wanted to speak to SS. SS met family (dtr Rosalinda Lujan [phone], pt and surrogate decision maker, Estrella Joseph [phone]) on 2nd floor waiting area to discuss concerns with DC planning and to complete initial assessment, DC plan determined for short term rehab. Pt does not possess medi-ольга for long-term placement; family is interested in starting process in case it is needed in the future. Family has no preference on SNF at this time. Pending PT eval for referral as pt will require auth.
[2025-05-25 13:33] LABS: Albumin, Serum 3.0 gm/dL (3.4-4.8); Anion Gap 13 (7-16); BUN/Creatinine Ratio 24 Ratio (12-20); Blood Urea Nitrogen 33 mg/dL (9-23); Calcium 7.7 mg/dL (8.3-10.6); Calcium (Corrected) 8.5 mg/dL (8.5-10.1); Carbon Dioxide 21.5 mMol/L (20.0-31.0); Chloride 122 mMol/L (98-107); Creatinine (Component) 1.4 mg/dL (0.6-1.3); Estimated Creatinine Clearance 30.1 mL/min (>60); Glucose 118 mg/dL (74-106); Osmolality,Calculated 317 (275-295); Phosphorous 2.6 mg/dL (2.4-5.1); Potassium 4.2 mMol/L (3.4-5.1); Sodium 156 mMol/L (136-145); eGFR 48 See Note
--- NOTE | 2025-05-25 13:46 | PC.SS ---
Kenneth Joseph is an 89-year-old male admitted to [facility] for Sepsis. Pt is confused therefore SS completed initial assessment with dtr Rosalinda Lujan [phone], and and surrogate decision maker, Estrella Joseph [phone]. Pt had a fall about a week ago where he has had a decline in mobility. Pt uses a walker at home. Per dtr pt requires moderate assist in which pt cannot provide for him. Reason they are interested in short term rehab. Pt PCP is Dr. James, last visit was February. Pt has no hx of mental health diagnosis. SS pending PT eval for SNF referral. SS will remain available for any additional needs or concerns. DC plan: SNF DM: /Dtr
[2025-05-25 13:54] LABS: Partial Thromboplastin Time > 139.0 Seconds (22.0-36.0)
[2025-05-25] MEDS: SODIUM CHLORIDE 0.9% 500 ML 500 ML 999 ML IV (14:00)
--- NOTE | 2025-05-25 15:11 | PC.DIETICIAN ---
Nutrition recommendations: Patient is at significant risk for refeeding syndrome. If EN is within plan of care, consider: 1.? Jevity 1.2 at 20 ml/hr x 24 hrs (do not advance) via OG/NG tube by pump. If no IV fluids, water flushes 25 ml/hr (or per MD). 2. Thiamine 100mg/day for 7 days; provide first dose at least 30 minutes before starting nutrition. 3.? Multivitamins/Minerals. 4. Daily labs for P, K, and Mg; replace as needed. *If no electrolytes disturbances after 24 hrs, advance 10 ml every 12 hrs to goal rate of 65 ml/hr x 24 hrs. 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
[2025-05-25] MEDS: THIAMINE INJ 500 MG in SODIUM CHLORIDE 0.9% 100 ML 205 MG IV (15:15)
[2025-05-25] MEDS: DEXTROSE 5%-WATER 500 ML 75 ML IV ×2 (15:17→23:19)
[2025-05-25] MEDS: RINGERS LACTATED 1000 ML 500 ML 999 ML IV (15:25)
[2025-05-25 16:03] LABS: Sodium 154 mMol/L (136-145)
[2025-05-25] MEDS: ACETAMINOPHEN SUPP 650 MG SUPP PR (16:19)
[2025-05-25 18:07] LABS: Lactate (Lactic Acid) 2.0 mMol/L (0.4-2.0)
[2025-05-25] MEDS: ALBUTEROL/IPRATROPIUM (Duoneb) RT SOL 3 ML NEBU INH (19:29)
[2025-05-25 20:07] LABS: Sodium 155 mMol/L (136-145)
[2025-05-25 21:53] LABS: Lactate (Lactic Acid) 1.9 mMol/L (0.4-2.0)
[2025-05-25 22:48] LABS: Partial Thromboplastin Time > 139.0 Seconds (22.0-36.0)
[2025-05-25 23:50] LABS: Sodium 154 mMol/L (136-145)
[2025-05-26] VITALS (13 sets, daily range): BP systolic 98–160; BP diastolic 54–84; PULSE 72–112; RESP 20–95; TEMP 36.4–38; O2SAT 92–100; BMI 19.3; BMI 12.0
[2025-05-26 00:29] LABS: Partial Thromboplastin Time > 139.0 Seconds (22.0-36.0)
[2025-05-26] MEDS: AMIODARONE 360 MG IVPB 360 MG/200 ML BAG 16.667 MG IV (00:32)
[2025-05-26] MEDS: SILVER SULFADIAZINE CR 1% 25 GM TUBE TOP ×2 (00:38→09:00)
[2025-05-26] MEDS: ALBUTEROL/IPRATROPIUM (Duoneb) RT SOL 3 ML NEBU INH ×4 (01:12→20:09)
[2025-05-26 04:16] LABS: Lactate (Lactic Acid) 2.4 mMol/L (0.4-2.0)
[2025-05-26 04:24] LABS: Basophils # (Auto) 0.0 Thou/mm3 (0.0-0.2); Basophils % (Auto) 0 % (0-2.5); Eosinophils # (Auto) 0.0 Thou/mm3 (0.0-0.5); Eosinophils % (Auto) 0 % (0-10); Hematocrit 38.5 % (41.0-53.0); Hemoglobin 12.4 g/dL (13.5-16.0); Immature Granulocytes Auto 0.26 Thou/mm3 (0.00-0.00); Lymphocytes # (Auto) 1.1 Thou/mm3 (1.0-4.8); Lymphocytes % (Auto) 8 % (10-50); Mean Corpuscular HGB Conc 32.2 g/dl (31.0-37.0); Mean Corpuscular Hemoglobin 30.0 pg (25.0-35.0); Mean Corpuscular Volume 93 fL (80-100); Monocytes # (Auto) 1.4 Thou/mm3 (0.0-0.8); Monocytes % (Auto) 11 % (0-12); Neutrophils # (Auto) 9.8 Thou/mm3 (1.8-7.7); Neutrophils % (Auto) 78 % (37-80); Nucleated Red Blood Cell # 0.00 Thou/mm3 (0.00-0.00); Nucleated Red Blood Cell % 0 /100 WBC (0); Platelet Count 199 Thou/mm3 (140-440); RDW Standard Deviation 47.8 fL (35.1-43.9); Red Blood Count 4.13 Miln/mm3 (4.50-5.90); White Blood Count 12.5 Thou/mm3 (3.8-10.6)
[2025-05-26 04:49] LABS: Partial Thromboplastin Time 60.6 Seconds (22.0-36.0)
[2025-05-26] MEDS: DEXTROSE 5%-WATER 500 ML 150 ML IV ×3 (05:03→17:13)
[2025-05-26] MEDS: PIPER/TAZO 3.375 GM PREMIX 3.375 GM/50 ML BAG IV ×4 (05:17→23:57)
[2025-05-26 05:48] LABS: Alanine Aminotransferase 44 U/L (10-49); Albumin, Serum 3.2 gm/dL (3.4-4.8); Albumin/Globulin Ratio 1.2 (1.2-2.2); Alkaline Phosphatase 56 U/L (46-116); Anion Gap 13 (7-16); Aspartate Amino Transferase 86 U/L (0-34); BUN/Creatinine Ratio 22 Ratio (12-20); Bilirubin,Total 1.1 mg/dL (0.3-1.2); Blood Urea Nitrogen 31 mg/dL (9-23); Calcium 7.6 mg/dL (8.3-10.6); Calcium (Corrected) 8.2 mg/dL (8.5-10.1); Carbon Dioxide 22.0 mMol/L (20.0-31.0); Chloride 120 mMol/L (98-107); Creatinine (Component) 1.4 mg/dL (0.6-1.3); Estimated Creatinine Clearance 30.1 mL/min (>60); Globulin 2.6 gm/dL (2.3-3.5); Glucose 136 mg/dL (74-106); Magnesium 2.0 mg/dL (1.6-2.6); Osmolality,Calculated 315 (275-295); Phosphorous 2.2 mg/dL (2.4-5.1); Potassium 3.6 mMol/L (3.4-5.1); Sodium 155 mMol/L (136-145); Total Protein 5.8 gm/dL (5.7-8.2); eGFR 48 See Note
[2025-05-26 06:52] LABS: Reflex Lactate? Y
[2025-05-26 07:46] LABS: Lactic Acid, 3 HR 2.1 mMol/L (0.4-2.0)
--- NOTE | 2025-05-26 09:25 | ESPR_ITS ---
<Statement entered by Selwyn Lazar MD - 06/07/25 09:17> I reviewed above note and agree with findings and plans. I have also personally examined the patient with medicine team and went over assessment and plan with medical team including data analysis intern and resident physician. <Statement entered by Ariel Reza MD - 05/26/25 15:46> Patient was examined and case was reviewed with team including attending physician. Note reviewed, I agree with most of its contents and agree with the patient's care as documented by Dr. Meredith Patient seen today at the bedside fine awake, alert, not oriented, slightly aggressive and combative at the time of my evaluation. One on one sitter ordered. Vitals and labs reviewed. Currently on HFNC currently weaning down. Was started on IV steroids for COVID pneumonia. Lactic acid increasing, IVF given. Will continue with wound care and IV antibiotics at this time for cellulitis. Case discussed with my attending Dr. Nagi Reza MD PGY-2 Disclaimer: Despite multiple revisions, due to the dictation software being used, the document bellow may not be free of grammatical errors including phonetic/typographic errors. However, this does not deter from our commitment to providing health care in the patient's best interest in mind. Documentation for date of: 05/26/25 Subjective Subjective Interval history: Patient seen bedside this morning. Still not speaking, does not answer questions. Would not participate in full exam. Appears stable on HFNC. No visible distress. Exam Vital Signs Temp Pulse Resp BP Pulse Ox O2 Del Method O2 Flow Rate 100.4 F 93 25 H 128/63 97 Oxy Mask 7 05/26/25 08:00 05/26/25 08:00 05/26/25 08:00 05/26/25 08:00 05/26/25 08:00 05/26/25 08:00 05/26/25 08:00 Narrative Exam General: Elderly male, chronically ill-appearing, nonverbal, does not respond to questions. HEENT: Atraumatic; mucous membranes slightly dry. Lungs: Rhonchi heard diffusely on auscultation; no accessory muscle use; equal chest rise. Heart: Irregularly irregular rhythm; rate controlled in 70s on monitor. Abdomen: Limited exam; nondistended; no guarding observed. Extremities/Skin: Left thigh/buttock necrotic plaque and right thigh necrotic lesions (seen previously); wound care following. Neuro: Withdraws to pain; does not follow commands; no focal deficits appreciated. Lines/Drips: On amiodarone drip, heparin drip, D5 infusion. Objective Labs 05/26/25 03:35 05/26/25 17:32 Labs: Laboratory Results - last 24 hr 05/25/25 05/25/25 05/25/25 04:23 12:48 15:22 WBC RBC Hgb Hct MCV MCH MCHC RDW Std Deviation Plt Count Neut % (Auto) Lymph % (Auto) Otero % (Auto) Eos % (Auto) Baso % (Auto) Neut # (Auto) Lymph # (Auto) Otero # (Auto) Eos # (Auto) Baso # (Auto) Immature Gran # (Auto) Absolute Nucleated RBC Immature Gran % Nucleated RBC % APTT > 139.0 H* D Sodium 156 H 154 H Potassium 4.2 Chloride 122 H* Carbon Dioxide 21.5 Anion Gap 13 BUN 33 H Creatinine 1.4 H Estim Creat Clear Calc 30.1 L eGFR 48 L BUN/Creatinine Ratio 24 H Glucose 118 H Calculated Osmolality 317 H Lactic Acid Calcium 7.7 L Corrected Calcium 8.5 Phosphorus 2.6 Magnesium Total Bilirubin AST ALT Alkaline Phosphatase Total Protein 6.1 Albumin 3.0 L Globulin 2.9 Albumin/Globulin Ratio 1.1 L 05/25/25 05/25/25 05/25/25 17:51 19:24 21:25 WBC RBC Hgb Hct MCV MCH MCHC RDW Std Deviation Plt Count Neut % (Auto) Lymph % (Auto) Otero % (Auto) Eos % (Auto) Baso % (Auto) Neut # (Auto) Lymph # (Auto) Otero # (Auto) Eos # (Auto) Baso # (Auto) Immature Gran # (Auto) Absolute Nucleated RBC Immature Gran % Nucleated RBC % APTT > 139.0 H* Sodium 155 H Potassium Chloride Carbon Dioxide Anion Gap BUN Creatinine Estim Creat Clear Calc eGFR BUN/Creatinine Ratio Glucose Calculated Osmolality Lactic Acid 2.0 1.9 Calcium Corrected Calcium Phosphorus Magnesium Total Bilirubin AST ALT Alkaline Phosphatase Total Protein Albumin Globulin Albumin/Globulin Ratio 05/25/25 05/26/25 05/26/25 23:24 03:35 07:23 WBC 12.5 H RBC 4.13 L Hgb 12.4 L Hct 38.5 L MCV 93 MCH 30.0 MCHC 32.2 RDW Std Deviation 47.8 H Plt Count 199 Neut % (Auto) 78 Lymph % (Auto) 8 L Otero % (Auto) 11 Eos % (Auto) 0 Baso % (Auto) 0 Neut # (Auto) 9.8 H Lymph # (Auto) 1.1 Otero # (Auto) 1.4 H Eos # (Auto) 0.0 Baso # (Auto) 0.0 Immature Gran # (Auto) 0.26 H Absolute Nucleated RBC 0.00 Immature Gran % 2 H Nucleated RBC % 0 APTT > 139.0 H* 60.6 H D Sodium 154 H 155 H Potassium 3.6 D Chloride 120 H Carbon Dioxide 22.0 Anion Gap 13 BUN 31 H Creatinine 1.4 H Estim Creat Clear Calc 30.1 L eGFR 48 L BUN/Creatinine Ratio 22 H Glucose 136 H Calculated Osmolality 315 H Lactic Acid 2.4 H 2.1 H Calcium 7.6 L Corrected Calcium 8.2 L Phosphorus 2.2 L Magnesium 2.0 Total Bilirubin 1.1 AST 86 H ALT 44 Alkaline Phosphatase 56 Total Protein 5.8 Albumin 3.2 L Globulin 2.6 Albumin/Globulin Ratio 1.2 ABG Interpretation ABG results: 05/24/25 13:36 ABG pH 7.39 ABG pCO2 25 L ABG pO2 153 H ABG HCO3 15 L ABG O2 Saturation 99 H ABG Base Excess -8 L Quality Measures Quality Measures sepsis Current suspected stage: sepsis Possible source: skin/soft tissue Blood cultures ordered: completed in ED Antibiotic ordered: Yes Advance care planning discussed with:: patient Assessment & Plan Assessment Current Active Medications: Generic Name Dose Route Start Last Admin Trade Name Freq PRN Reason Stop Dose Admin Acetaminophen 650 mg 05/24/25 18:27 05/25/25 16:19 Acetaminophen Supp 650 Mg Supp [place] 06/23/25 18:26 650 mg Q6HR PRN Administration Fever > 100.4 or pain 1-5 Albuterol/Ipratropium 3 ml 05/25/25 18:48 Albuterol/Ipratropium (Duoneb) Rt Reyna 3 Ml Nebu INH 06/24/25 18:47 Q2HR PRN SHORTNESS OF BREATH OR WHEEZE Albuterol/Ipratropium 3 ml 05/25/25 19:00 05/26/25 06:44 Albuterol/Ipratropium (Duoneb) Rt Reyna 3 Ml Nebu INH 06/24/25 18:59 3 ml Q6HRRT ODILIA Administration Amiodarone HCl 200 mg 05/26/25 09:00 Amiodarone Hcl 200 Mg Tablet PO 06/25/25 08:59 BID ODILIA Apixaban 2.5 mg 05/26/25 10:30 Apixaban 2.5 Mg Tablet PO 06/25/25 10:29 BID ODILIA Calcium Carbonate 600 mg 05/26/25 09:00 Calcium Carbonate 600 Mg Tablet PO 06/25/25 08:59 QDAY ODILIA Piperacillin/Tazobactam/Dextrose 3.375 gm in 50 mls @ 100 mls/hr 05/25/25 00:00 05/26/25 05:17 Zosyn IV 06/01/25 00:00 100 mls/hr Q6HR ODILIA Administration Protocol Vancomycin/Sodium Chloride 100 mls @ 120 mls/hr 05/25/25 10:30 05/25/25 11:45 Vancomycin/Ns 500 Mg Ivpb IV 06/01/25 10:29 Infused QDAY@1000 ODILIA Infusion Dextrose 500 mls @ 150 mls/hr 05/26/25 05:00 05/26/25 05:03 D5w IV 06/25/25 04:59 150 mls/hr .Q3H20M ODILIA Administration Ondansetron HCl 4 mg 05/24/25 18:27 Ondansetron Inj 2 Mg/Ml Inj 2 Ml IVP 06/23/25 18:26 Q6H PRN NAUSEA OR VOMITING Protocol Pantoprazole Sodium 40 mg 05/24/25 18:45 05/25/25 08:00 Pantoprazole Inj 40 Mg Vial IVP 06/23/25 18:44 40 mg QDAY ODILIA Administration Pharmacy Consult 1 each 05/25/25 07:29 Vancomycin Pharmacy To Dose 1 Each Each IV 06/23/25 18:29 QDAY PRN CONSULT Silver Sulfadiazine 0 gm 05/25/25 21:00 05/26/25 00:38 Silver Sulfadiazine Cr 1% 25 Gm Tube TOP 06/01/25 20:59 1 appln BID ODILIA Administration Thiamine HCl 100 mg 05/26/25 09:00 Thiamine 100 Mg Tablet PO 06/25/25 08:59 QDAY ODILIA Tramadol HCl 50 mg 05/24/25 18:27 Tramadol Hcl 50 Mg Tablet PO 05/29/25 18:26 Q6HR PRN Pain Scale 6-10 Plan 89M with severe sepsis secondary to suspected soft tissue infection and LLL pneumonia, COVID-positive, complicated by A-fib with RVR, JOAN, hypernatremia, and sepsis-associated encephalopathy, now on 7 L HFNC after overnight desaturation and fever. # Severe Sepsis without shock 89-year-old male presenting with severe sepsis secondary to Suspected necrotizing soft tissue infection (possible necrotizing fasciitis vs extensive necrotic cellulitis) involving the left upper thigh/buttock (25?15 cm necrotic plaque) and medial right thigh necrotic lesions Associated with altered mental status, mottled cool skin, lactic acidosis (5.6 - > 4.3), WBC 18.6, and acute kidney injury. Patient is only responsive to painful stimuli, indicating sepsis-associated encephalopathy?. Skin findings are extensive and highly concerning for a rapidly progressive deep soft tissue infection. SOFA score: 9 (Resp 2, Liver 1, [employer] 4, Renal 1, CV 1). LRINEC score: 4 Low risk, but not no risk. 05/26: Sepsis with organ dysfunction (AMS, JOAN, lactate fluctuations). Sources: necrotic soft tissue infection + pneumonia + COVID. WBC improving. Lactic acid overall trending down but fluctuating slightly. Plan: * Continue Vancomycin + Zosyn 3.375 Q8h (05/24- ) * Trend lactate q6h until <2. * Maintain MAP >65; upgrade to icu only if resistant hypotension develops (currently not in shock). * Strict I/Os * Blood cultures ?2 pending * Daily CBC, CMP, coagulation studies. * Continuous monitoring for progression of sepsis, worsening perfusion, or mental status deterioration. # Soft Tissue Infection Large necrotic plaque (25?15 cm) on left thigh/buttock and multiple right thigh necrotic lesions, mottled skin, severe systemic toxicity No current concern for Necrotizing fascitis No abscess or osteomyelitis on CT abdomen/pelvis, but CT cannot rule out nec fasc. If clinically worsens will reevaluate and consider consult [facility] Plan: * Will consider General Surgery consultation if worsens. * Continue broad-spectrum antibiotics as above. * Daily wound checks # Left Lower Lobe Pneumonia CT abdomen/pelvis shows significant left-base pneumonia, likely contributing to sepsis. Procalcitonin 0.56 supports bacterial infection. Plan: * Continue Zosyn 3.375 Q8H * Repeat CXR in 24 hrs or earlier if clinical decline. * Evaluate for possible aspiration (see separate problem below). # COVID-19 Infection Plan: * Supportive care. * Monitor for worsening hypoxia. * Continue isolation precautions. # Atrial Fibrillation with RVR Newly diagnosed overnight was started on amio and heparin drip, transition to IV as patient failed swallow study. Plan: * Continue amiodarone 150 IV per pharmacy dosing. * Continue Levonox 60 mg BID. * Telemetry monitoring. * Repeat EKG as needed. # Sepsis-Associated Encephalopathy Profound AMS; only responsive to painful stimuli on presentation, when seen patient he responded to verbal after waking patient up physically No acute intracranial hemorrhage or stroke on CT head. Likely due to sepsis, metabolic derangements, and hypoperfusion. Plan: * Serial neuro exams. * Avoid sedating or neurotoxic medications. * Repeat CT if AMS does not improve with sepsis treatment. # Acute Kidney Injury, improving Cr 2.1, GFR 30, BUN 72. Baseline unknown. Likely pre-renal from sepsis, hypoperfusion, and dehydration. This monring Cr 1.4 Plan: * Continue IV fluid resuscitation. * Trend BMP daily. * Will consider consult nephrology if worsening or oliguria develops. * Adjust all renally cleared medications. # Hypernatremia Na 155 today. Plan: * Continue D5 @ 125 mL/hr. * Trend Na q6h. # Cirrhosis Pattern (suspected based on CT) CT abdomen shows cirrhosis pattern Ammonia mildly elevated at 49; could contribute to encephalopathy but cannot diagnose without clinical history. Plan: * Trend liver function tests. * Consider lactulose after sepsis and metabolic causes addressed. * GI consult if clinical suspicion rises. # Aspiration Risk Several days of poor intake + acute AMS -> high risk for macroaspiration. CT shows LLL pneumonia, possible aspiration component. Plan: * Keep NPO until mental status improves. * Ordered swallow eval once appropriate. * Antibiotic coverage adequate for aspiration. # Lactic Acidosis Lactate 5.6 -> 4.3->2.7->3.9, improving with fluids. Indicative of tissue hypoperfusion from severe sepsis. Lactic acid flucutaing, down and up last is 3.8 from 2.1 this morning Plan: * Continue resuscitation. * Trend q6h until <2. * Treat underlying infection sources. # Electrolyte Abnormalities Na 156, Cl 122, Mg 2.6. Plan: * Monitor electrolytes daily. * Replace as needed. # Elevated Troponin (likely demand ischemia) Troponin 0.145 in setting of systemic illness No evidence of ACS on imaging/initial evaluation. Last troponin 0.134 downtrending Plan: * Trend troponin q6h. * Tele monitoring. * No anticoagulation unless dynamic rise. # Malnutrition Several days of decreased appetite, cachectic appearance, frailty. Plan: * Nutrition consult once stabilized. * NPO until AMS improves. * Consider NG if prolonged poor intake. Health Maintenance: Disposition: Admit to telemetry for monitoring Feeding: NPO until mental status improves. Thromboprophylaxis: lovenox GI Prophylaxis: IV Protonix. Code Status: Full code; reassess if prognosis changes. Antibiotic: Vanc and zosyn [05/24- ] ----- Plan discussed with attending physician Dr. Lazar and senior resident Dr. Shamar Meredith MD PGY-1 Internal Medicine
[2025-05-26] MEDS: NAPH,KPH MBDB 1 PACKET (1.5 GM) PO (10:08)
--- NOTE | 2025-05-26 10:14 | PC.SS ---
Rounding: PEnding ECHO, on IV ABX, spiked fevers, DC plan SNF pending choice m(will require PT eval for Auth)
[2025-05-26] MEDS: VANCOMYCIN/NS 500 MG IVPB 100 ML 120 MG IV (10:23)
[2025-05-26] MEDS: ENOXAPARIN SOD INJ 100 MG/ML SYRINGE 60 MG SC (12:29)
[2025-05-26 13:13] LABS: Partial Thromboplastin Time 89.1 Seconds (22.0-36.0)
[2025-05-26 13:36] LABS: Lactate (Lactic Acid) 2.6 mMol/L (0.4-2.0)
--- NOTE | 2025-05-26 14:20 | PCS.ST ---
Swallow Evaluation completed. See report for details. Pharyngeal dysphagia with s/s of laryngeal penetration. Not safe for diet order or PO meds at this time.
[2025-05-26 15:00] LABS: Sodium 153 mMol/L (136-145)
[2025-05-26 16:34] LABS: Reflex Lactate? Y
[2025-05-26 17:39] LABS: Lactic Acid, 3 HR 3.8 mMol/L (0.4-2.0)
[2025-05-26 17:56] LABS: Sodium 155 mMol/L (136-145)
[2025-05-26] MEDS: DEXTROSE 5%-WATER 1,000 ML 200 ML IV ×2 (20:00→23:58)
[2025-05-26] MEDS: RINGERS LACTATED 500 ML 500 ML 999 ML IV (21:48)
[2025-05-26] MEDS: AMIODARONE 150 MG IVPB 150 MG/100 ML BAG 200 MG IV (22:00)
[2025-05-26] MEDS: ENOXAPARIN SOD INJ 60 MG/0.6 ML SYRINGE SC (22:02)
[2025-05-26 22:55] LABS: Sodium 149 mMol/L (136-145)
[2025-05-27] VITALS (11 sets, daily range): BP systolic 100–140; BP diastolic 54–66; PULSE 48–76; RESP 18–22; TEMP 36.5–37.7; O2SAT 93–99; BMI 21.1; BMI 12.0
[2025-05-27 02:52] LABS: Basophils # (Auto) 0.0 Thou/mm3 (0.0-0.2); Basophils % (Auto) 0 % (0-2.5); Eosinophils # (Auto) 0.0 Thou/mm3 (0.0-0.5); Eosinophils % (Auto) 0 % (0-10); Hematocrit 33.0 % (41.0-53.0); Hemoglobin 10.7 g/dL (13.5-16.0); Immature Granulocytes Auto 0.14 Thou/mm3 (0.00-0.00); Lymphocytes # (Auto) 1.0 Thou/mm3 (1.0-4.8); Lymphocytes % (Auto) 10 % (10-50); Mean Corpuscular HGB Conc 32.4 g/dl (31.0-37.0); Mean Corpuscular Hemoglobin 30.1 pg (25.0-35.0); Mean Corpuscular Volume 93 fL (80-100); Monocytes # (Auto) 1.2 Thou/mm3 (0.0-0.8); Monocytes % (Auto) 12 % (0-12); Neutrophils # (Auto) 7.5 Thou/mm3 (1.8-7.7); Neutrophils % (Auto) 76 % (37-80); Nucleated Red Blood Cell # 0.00 Thou/mm3 (0.00-0.00); Nucleated Red Blood Cell % 0 /100 WBC (0); Platelet Count 161 Thou/mm3 (140-440); RDW Standard Deviation 47.4 fL (35.1-43.9); Red Blood Count 3.56 Miln/mm3 (4.50-5.90); White Blood Count 9.9 Thou/mm3 (3.8-10.6)
[2025-05-27 02:54] LABS: Sodium 147 mMol/L (136-145)
[2025-05-27] MEDS: PIPER/TAZO 3.375 GM PREMIX 3.375 GM/50 ML BAG IV ×3 (05:31→17:05)
[2025-05-27] MEDS: DEXTROSE 5%-WATER 1,000 ML 100 ML IV ×2 (05:31→14:33)
[2025-05-27 05:54] LABS: Chloride,Urine Random 28.7 mMol/L (55.0-125.0); Potassium,Urine Random 31 mMol/L (12-62); Sodium,Urine Random 21.6 mMol/L (20.0-110.0)
[2025-05-27] MEDS: ALBUTEROL/IPRATROPIUM (Duoneb) RT SOL 3 ML NEBU INH ×3 (06:38→20:07)
[2025-05-27 06:49] LABS: Lactate (Lactic Acid) 1.8 mMol/L (0.4-2.0)
[2025-05-27 06:59] LABS: Basophils # (Auto) 0.0 Thou/mm3 (0.0-0.2); Basophils % (Auto) 0 % (0-2.5); Eosinophils # (Auto) 0.0 Thou/mm3 (0.0-0.5); Eosinophils % (Auto) 0 % (0-10); Hematocrit 30.8 % (41.0-53.0); Hemoglobin 10.0 g/dL (13.5-16.0); Immature Granulocytes Auto 0.15 Thou/mm3 (0.00-0.00); Lymphocytes # (Auto) 1.2 Thou/mm3 (1.0-4.8); Lymphocytes % (Auto) 13 % (10-50); Mean Corpuscular HGB Conc 32.5 g/dl (31.0-37.0); Mean Corpuscular Hemoglobin 30.4 pg (25.0-35.0); Mean Corpuscular Volume 94 fL (80-100); Monocytes # (Auto) 1.2 Thou/mm3 (0.0-0.8); Monocytes % (Auto) 13 % (0-12); Neutrophils # (Auto) 6.7 Thou/mm3 (1.8-7.7); Neutrophils % (Auto) 72 % (37-80); Nucleated Red Blood Cell # 0.00 Thou/mm3 (0.00-0.00); Nucleated Red Blood Cell % 0 /100 WBC (0); Platelet Count 169 Thou/mm3 (140-440); RDW Standard Deviation 47.3 fL (35.1-43.9); Red Blood Count 3.29 Miln/mm3 (4.50-5.90); White Blood Count 9.4 Thou/mm3 (3.8-10.6)
[2025-05-27 07:16] LABS: Alanine Aminotransferase 38 U/L (10-49); Albumin, Serum 2.7 gm/dL (3.4-4.8); Albumin/Globulin Ratio 1.2 (1.2-2.2); Alkaline Phosphatase 47 U/L (46-116); Anion Gap 10 (7-16); Aspartate Amino Transferase 75 U/L (0-34); BUN/Creatinine Ratio 15 Ratio (12-20); Bilirubin,Total 0.9 mg/dL (0.3-1.2); Blood Urea Nitrogen 19 mg/dL (9-23); Calcium 6.9 mg/dL (8.3-10.6); Calcium (Corrected) 7.9 mg/dL (8.5-10.1); Carbon Dioxide 22.8 mMol/L (20.0-31.0); Chloride 112 mMol/L (98-107); Creatinine (Component) 1.3 mg/dL (0.6-1.3); Estimated Creatinine Clearance 35.3 mL/min (>60); Globulin 2.2 gm/dL (2.3-3.5); Glucose 116 mg/dL (74-106); Magnesium 1.7 mg/dL (1.6-2.6); Osmolality,Calculated 291 (275-295); Phosphorous 2.2 mg/dL (2.4-5.1); Potassium 3.1 mMol/L (3.4-5.1); Sodium 145 mMol/L (136-145); Total Protein 4.9 gm/dL (5.7-8.2); eGFR 53 See Note
[2025-05-27] MEDS: POT PHOS 15 mMol in NS 250 ML 15 MMOL/250 ML BAG 62.5 MMOL IV (09:45)
[2025-05-27] MEDS: ENOXAPARIN SOD INJ 60 MG/0.6 ML SYRINGE SC ×2 (09:46→20:35)
[2025-05-27] MEDS: SILVER SULFADIAZINE CR 1% 25 GM TUBE TOP (09:47)
[2025-05-27] MEDS: Magnesium Sulfate 4 GM Ivpb 4 GM/50 ML BAG IV (10:14)
[2025-05-27 10:23] LABS: Vancomycin,Trough 8.0 mcg/mL (5.0-10.0)
[2025-05-27] MEDS: VANCOMYCIN/WATER 1GM IVPB 200 ML IV (11:29)
[2025-05-27] MEDS: THIAMINE INJ 100 MG/ML VIAL 2 ML IVP (14:06)
--- NOTE | 2025-05-27 17:03 | ESPR_ITS ---
<Statement entered by Selwyn Lazar MD - 06/07/25 09:18> I reviewed above note and agree with findings and plans. I have also personally examined the patient with medicine team and went over assessment and plan with medical team including internet webmaster and resident physician. Documentation for date of: 05/27/25 Subjective Subjective Interval history: Seen patient this morning, no acute overnight events. Patient now alert and oriented, improved significantly compared to yesterday. Patient failed swallow study, will repeat swallow study tomorrow morning and if fails again then will do modified barium's swallow study. Spoke to patient's daughter who is power of workers compensation attorney and stated to continue full treatment for this patient. Exam Vital Signs Temp Pulse Resp BP Pulse Ox O2 Del Method O2 Flow Rate 98.2 F 68 18 106/54 L 97 Nasal Cannula 4 05/27/25 12:00 05/27/25 13:32 05/27/25 13:32 05/27/25 12:00 05/27/25 13:32 05/27/25 12:00 05/27/25 13:32 Narrative Exam General: Elderly male, chronically ill-appearing. HEENT: Atraumatic; mucous membranes slightly dry. Lungs: Rhonchi heard diffusely on auscultation; no accessory muscle use; equal chest rise. Heart: Irregularly irregular rhythm; rate controlled in 70s on monitor. Abdomen: Limited exam; nondistended; no guarding observed. Extremities/Skin: Left thigh/buttock necrotic plaque and right thigh necrotic lesions (seen previously); wound care following. Neuro: Alert and oriented x 2. Objective Labs 05/27/25 06:38 05/27/25 06:38 Labs: Laboratory Results - last 24 hr 05/26/25 05/26/25 05/27/25 17:32 22:24 02:23 WBC 9.9 RBC 3.56 L Hgb 10.7 L Hct 33.0 L MCV 93 MCH 30.1 MCHC 32.4 RDW Std Deviation 47.4 H Plt Count 161 D Neut % (Auto) 76 Lymph % (Auto) 10 [place] % (Auto) 12 Eos % (Auto) 0 Baso % (Auto) 0 Neut # (Auto) 7.5 Lymph # (Auto) 1.0 [place] # (Auto) 1.2 H Eos # (Auto) 0.0 Baso # (Auto) 0.0 Immature Gran # (Auto) 0.14 H Absolute Nucleated RBC 0.00 Immature Gran % 1 H Nucleated RBC % 0 Sodium 155 H 149 H 147 H Potassium Chloride Carbon Dioxide Anion Gap BUN Creatinine Estim Creat Clear Calc eGFR BUN/Creatinine Ratio Glucose Calculated Osmolality Lactic Acid 3.8 H Calcium Corrected Calcium Phosphorus Magnesium Total Bilirubin AST ALT Alkaline Phosphatase Total Protein Albumin Globulin Albumin/Globulin Ratio Ur Random Sodium Ur Random Potassium Ur Random Chloride Vancomycin Trough 05/27/25 05/27/25 05/27/25 04:00 06:38 09:24 WBC 9.4 RBC 3.29 L Hgb 10.0 L Hct 30.8 L MCV 94 MCH 30.4 MCHC 32.5 RDW Std Deviation 47.3 H Plt Count 169 Neut % (Auto) 72 Lymph % (Auto) 13 [place] % (Auto) 13 H Eos % (Auto) 0 Baso % (Auto) 0 Neut # (Auto) 6.7 Lymph # (Auto) 1.2 [place] # (Auto) 1.2 H Eos # (Auto) 0.0 Baso # (Auto) 0.0 Immature Gran # (Auto) 0.15 H Absolute Nucleated RBC 0.00 Immature Gran % 2 H Nucleated RBC % 0 Sodium 145 Potassium 3.1 L D Chloride 112 H Carbon Dioxide 22.8 Anion Gap 10 BUN 19 Creatinine 1.3 Estim Creat Clear Calc 35.3 L eGFR 53 L BUN/Creatinine Ratio 15 Glucose 116 H Calculated Osmolality 291 Lactic Acid 1.8 Calcium 6.9 L Corrected Calcium 7.9 L Phosphorus 2.2 L Magnesium 1.7 Total Bilirubin 0.9 AST 75 H ALT 38 Alkaline Phosphatase 47 Total Protein 4.9 L Albumin 2.7 L D Globulin 2.2 L Albumin/Globulin Ratio 1.2 Ur Random Sodium 21.6 Ur Random Potassium 31 Ur Random Chloride 28.7 L Vancomycin Trough 8.0 ABG Interpretation ABG results: 05/24/25 13:36 ABG pH 7.39 ABG pCO2 25 L ABG pO2 153 H ABG HCO3 15 L ABG O2 Saturation 99 H ABG Base Excess -8 L Quality Measures Quality Measures sepsis Current suspected stage: sepsis Possible source: skin/soft tissue Blood cultures ordered: completed in ED Antibiotic ordered: Yes Advance care planning discussed with:: patient Assessment & Plan Assessment Current Active Medications: Generic Name Dose Route Start Last Admin Trade Name Freq PRN Reason Stop Dose Admin Acetaminophen 650 mg 05/24/25 18:27 05/25/25 16:19 Acetaminophen Supp 650 Mg Supp GA 06/23/25 18:26 650 mg Q6HR PRN Administration Fever > 100.4 or pain 1-5 Albuterol/Ipratropium 3 ml 05/25/25 18:48 Albuterol/Ipratropium (Duoneb) Rt Reyna 3 Ml Nebu INH 06/24/25 18:47 Q2HR PRN SHORTNESS OF BREATH OR WHEEZE Albuterol/Ipratropium 3 ml 05/25/25 19:00 05/27/25 13:31 Albuterol/Ipratropium (Duoneb) Rt Reyna 3 Ml Nebu INH 06/24/25 18:59 3 ml Q6HRRT ODILIA Administration Calcium Carbonate 600 mg 05/26/25 09:00 05/27/25 09:46 Calcium Carbonate 600 Mg Tablet PO 06/25/25 08:59 Not Given QDAY ODILIA Enoxaparin Sodium 60 mg 05/26/25 14:12 05/27/25 09:46 Enoxaparin Sod Inj 60 Mg/0.6 Ml Syringe SC 06/09/25 11:29 60 mg BID ODILIA Administration Piperacillin/Tazobactam/Dextrose 3.375 gm in 50 mls @ 100 mls/hr 05/25/25 00:00 05/27/25 12:37 Zosyn IV 06/01/25 00:00 100 mls/hr Q6HR ODILIA Administration Protocol Amiodarone HCl/Dextrose 150 mg in 100 mls @ 200 mls/hr 05/26/25 21:00 05/26/25 22:00 Nexterone Ivpb IV 06/25/25 20:59 200 mls/hr QDAY@2100 ODILIA Administration Dextrose 1,000 mls @ 100 mls/hr 05/27/25 02:56 05/27/25 14:33 D5w IV 06/26/25 02:55 100 mls/hr .Q10H ODILIA Administration Vancomycin HCl 200 mls @ 120 mls/hr 05/27/25 10:30 05/27/25 11:29 Vancomycin/Water 1gm Ivpb IV 06/03/25 10:29 120 mls/hr QDAY@1000 ODILIA Administration Methylprednisolone Sodium Succinate 60 mg 05/26/25 21:00 Methylprednisolone Sod Succ 40 Mg/Ml Vial IV 06/02/25 20:59 On Hold: 05/26/25 21:00 Q12HR ODILIA Ondansetron HCl 4 mg 05/24/25 18:27 Ondansetron Inj 2 Mg/Ml Inj 2 Ml IVP 06/23/25 18:26 Q6H PRN NAUSEA OR VOMITING Protocol Pantoprazole Sodium 40 mg 05/24/25 18:45 05/27/25 09:46 Pantoprazole Inj 40 Mg Vial IVP 06/23/25 18:44 40 mg QDAY ODILIA Administration Pharmacy Consult 1 each 05/25/25 07:29 Vancomycin Pharmacy To Dose 1 Each Each IV 06/23/25 18:29 QDAY PRN CONSULT Silver Sulfadiazine 0 gm 05/27/25 21:00 Silver Sulfadiazine Cr 1% 400g 400 Gm Jar TOP 06/03/25 20:59 BID ODILIA Thiamine HCl 100 mg 05/27/25 14:00 05/27/25 14:06 Thiamine Inj 100 Mg/Ml Vial 2 Ml IVP 06/26/25 13:59 100 mg QDAY ODILIA Administration Tramadol HCl 50 mg 05/24/25 18:27 Tramadol Hcl 50 Mg Tablet PO 05/29/25 18:26 Q6HR PRN Pain Scale 6-10 Plan 89M with severe sepsis secondary to suspected soft tissue infection and LLL pneumonia, COVID-positive, complicated by A-fib with RVR, JOAN, hypernatremia, and sepsis-associated encephalopathy, now on 7 L HFNC after overnight desaturation and fever. # Severe Sepsis without shock 89-year-old male presenting with severe sepsis secondary to Suspected necrotizing soft tissue infection (possible necrotizing fasciitis vs extensive necrotic cellulitis) involving the left upper thigh/buttock (25?15 cm necrotic plaque) and medial right thigh necrotic lesions Associated with altered mental status, mottled cool skin, lactic acidosis (5.6 - > 4.3), WBC 18.6, and acute kidney injury. Patient is only responsive to painful stimuli, indicating sepsis-associated encephalopathy?. Skin findings are extensive and highly concerning for a rapidly progressive deep soft tissue infection. SOFA score: 9 (Resp 2, Liver 1, PROCESS EXCELLENCE MANAGER 4, Renal 1, CV 1). LRINEC score: 4 Low risk, but not no risk. 05/26: Sepsis with organ dysfunction (AMS, JOAN, lactate fluctuations). Sources: necrotic soft tissue infection + pneumonia + COVID. WBC improving. Lactic acid overall trending down but fluctuating slightly. 05/27: Patient's mentation improved, white blood cell improving, lactic acid resolved. Plan: * Continue Vancomycin + Zosyn 3.375 Q8h (05/24- ) * Maintain MAP >65; upgrade to icu only if resistant hypotension develops (currently not in shock). * Strict I/Os * Blood cultures ?2 pending * Daily CBC, CMP, coagulation studies. * Continuous monitoring for progression of sepsis, worsening perfusion, or mental status deterioration. # Soft Tissue Infection, improving Large necrotic plaque (25?15 cm) on left thigh/buttock and multiple right thigh necrotic lesions, mottled skin, severe systemic toxicity No current concern for Necrotizing fascitis No abscess or osteomyelitis on CT abdomen/pelvis, but CT cannot rule out nec fasc. If clinically worsens will reevaluate and consider consult [facility] 05/27: Wound care team spoke to me and stated wound is much improved and on admission no clinical suspicion for debridement. Plan: * Wound care referral. * Continue broad-spectrum antibiotics as above. * Daily wound checks # Left Lower Lobe Pneumonia CT abdomen/pelvis shows significant left-base pneumonia, likely contributing to sepsis. Procalcitonin 0.56 supports bacterial infection. Plan: * Continue Zosyn 3.375 Q8H * Repeat CXR in 24 hrs or earlier if clinical decline. * Evaluate for possible aspiration (see separate problem below). # COVID-19 Infection Plan: * Supportive care. * Monitor for worsening hypoxia. * Continue isolation precautions. # Atrial Fibrillation with RVR Newly diagnosed overnight was started on amio and heparin drip, transition to IV as patient failed swallow study. Plan: * Continue amiodarone 150 IV per pharmacy dosing. * Continue Levonox 60 mg BID. * Telemetry monitoring. * Repeat EKG as needed. # Sepsis-Associated Encephalopathy Profound AMS; only responsive to painful stimuli on presentation, when seen patient he responded to verbal after waking patient up physically No acute intracranial hemorrhage or stroke on CT head. Likely due to sepsis, metabolic derangements, and hypoperfusion. Plan: * Serial neuro exams. * Avoid sedating or neurotoxic medications. * Repeat CT if AMS does not improve with sepsis treatment. # Acute Kidney Injury, resolved Cr 2.1, GFR 30, BUN 72. Baseline unknown. Likely pre-renal from sepsis, hypoperfusion, and dehydration. This monring Cr 1.3 Plan: * Continue IV fluid resuscitation. * Trend BMP daily. * Will consider consult nephrology if worsening or oliguria develops. * Adjust all renally cleared medications. # Cirrhosis Pattern (suspected based on CT) CT abdomen shows cirrhosis pattern Ammonia mildly elevated at 49; could contribute to encephalopathy but cannot diagnose without clinical history. Plan: * Trend liver function tests. * Consider lactulose after sepsis and metabolic causes addressed. * GI consult if clinical suspicion rises. # Aspiration Risk Several days of poor intake + acute AMS -> high risk for macroaspiration. CT shows LLL pneumonia, possible aspiration component. Failed swallow study, will repeat in the AM. Plan: * Keep NPO until mental status improves. * Ordered swallow eval again tomorrow morning * Will order barium swallow study. * Antibiotic coverage adequate for aspiration. # Lactic Acidosis, resolved Lactate 5.6 -> 4.3->2.7->3.9, improving with fluids. Indicative of tissue hypoperfusion from severe sepsis. Lactic acid flucutaing, down and up last is 3.8 from 2.1 this morning 12/4: Lactate this morning 1.8. Plan: * Continue resuscitation. * Stop trend. * Treat underlying infection sources. # Electrolyte Abnormalities, improving #Hypernatremia #Hypokalemia #Hyperchloremia #Hypomagnesemia #Hypophosphatemia Sodium 145, potassium 3.1, chloride 112, magnesium 1.7. Phosphate 2.2 Plan: * Monitor electrolytes daily. * Stop D5W. * Repleted potassium and phosphate. * Replace as needed. # Elevated Troponin (likely demand ischemia) Troponin 0.145 in setting of systemic illness No evidence of ACS on imaging/initial evaluation. Last troponin 0.134 downtrending Plan: * Stopped trending. * Tele monitoring. # Malnutrition Several days of decreased appetite, cachectic appearance, frailty. Failed swallow study Plan: * Nutrition consult once stabilized. * NPO until AMS improves. * Will repeat swallow study in the a.m., if failed will do modified barium swallow study. * Consider NG if prolonged poor intake. Health Maintenance: Disposition: Admit to telemetry for monitoring Feeding: NPO until passes swallow study. Thromboprophylaxis: lovenox GI Prophylaxis: IV Protonix. Code Status: Full code; reassess if prognosis changes. Antibiotic: Vanc and zosyn [05/24- ] ----- Plan discussed with attending physician Dr. Nagi Meredith MD PGY-1 Internal Medicine
[2025-05-27] MEDS: AMIODARONE 150 MG IVPB 150 MG/100 ML BAG 200 MG IV (20:35)
--- NOTE | 2025-05-27 21:03 | XR_ITS ---
EXAMINATION: AP chest single view TECHNIQUE: AP portable semiupright chest single view Date and time: May 27, 2025, 0954 hours INDICATIONS: Patient swallowed a dentures. FINDINGS: Normal heart size Moderate vascular congestion. No opaque foreign body IMPRESSION: No opaque foreign body
[2025-05-27] MEDS: SILVER SULFADIAZINE CR 1% 400G 400 GM JAR TOP (21:59)
[2025-05-28] VITALS (9 sets, daily range): BP systolic 96–149; BP diastolic 46–68; PULSE 60–86; RESP 18–23; TEMP 36.2–36.8; O2SAT 94–99; BMI 20.5
[2025-05-28] MEDS: PIPER/TAZO 3.375 GM PREMIX 3.375 GM/50 ML BAG IV ×4 (00:04→20:02)
[2025-05-28 05:48] LABS: Basophils # (Auto) 0.0 Thou/mm3 (0.0-0.2); Basophils % (Auto) 0 % (0-2.5); Eosinophils # (Auto) 0.1 Thou/mm3 (0.0-0.5); Eosinophils % (Auto) 1 % (0-10); Hematocrit 32.4 % (41.0-53.0); Hemoglobin 10.6 g/dL (13.5-16.0); Immature Granulocytes Auto 0.15 Thou/mm3 (0.00-0.00); Lymphocytes # (Auto) 1.3 Thou/mm3 (1.0-4.8); Lymphocytes % (Auto) 16 % (10-50); Mean Corpuscular HGB Conc 32.7 g/dl (31.0-37.0); Mean Corpuscular Hemoglobin 30.6 pg (25.0-35.0); Mean Corpuscular Volume 94 fL (80-100); Monocytes # (Auto) 1.0 Thou/mm3 (0.0-0.8); Monocytes % (Auto) 12 % (0-12); Neutrophils # (Auto) 5.7 Thou/mm3 (1.8-7.7); Neutrophils % (Auto) 70 % (37-80); Nucleated Red Blood Cell # 0.00 Thou/mm3 (0.00-0.00); Nucleated Red Blood Cell % 0 /100 WBC (0); Platelet Count 197 Thou/mm3 (140-440); RDW Standard Deviation 47.2 fL (35.1-43.9); Red Blood Count 3.46 Miln/mm3 (4.50-5.90); White Blood Count 8.2 Thou/mm3 (3.8-10.6)
[2025-05-28 06:36] LABS: Alanine Aminotransferase 40 U/L (10-49); Albumin, Serum 2.8 gm/dL (3.4-4.8); Albumin/Globulin Ratio 1.1 (1.2-2.2); Alkaline Phosphatase 57 U/L (46-116); Anion Gap 10 (7-16); Aspartate Amino Transferase 83 U/L (0-34); BUN/Creatinine Ratio 10 Ratio (12-20); Bilirubin,Total 1.0 mg/dL (0.3-1.2); Blood Urea Nitrogen 14 mg/dL (9-23); Calcium 7.4 mg/dL (8.3-10.6); Calcium (Corrected) 8.4 mg/dL (8.5-10.1); Carbon Dioxide 23.6 mMol/L (20.0-31.0); Chloride 112 mMol/L (98-107); Creatinine (Component) 1.4 mg/dL (0.6-1.3); Estimated Creatinine Clearance 31.8 mL/min (>60); Globulin 2.5 gm/dL (2.3-3.5); Glucose 98 mg/dL (74-106); Osmolality,Calculated 291 (275-295); Potassium 3.6 mMol/L (3.4-5.1); Sodium 146 mMol/L (136-145); Total Protein 5.3 gm/dL (5.7-8.2); eGFR 48 See Note
[2025-05-28] MEDS: SILVER SULFADIAZINE CR 1% 400G 400 GM JAR TOP ×2 (10:00→21:24)
[2025-05-28] MEDS: DEXTROSE 5%-NS 1,000 ML 100 ML IV ×2 (10:00→20:02)
[2025-05-28] MEDS: THIAMINE INJ 100 MG/ML VIAL 2 ML IVP (10:01)
--- NOTE | 2025-05-28 10:16 | PC.SS ---
MARILUZ sent via [facility] to [facility]
[2025-05-28] MEDS: VANCOMYCIN/WATER 1GM IVPB 200 ML IV (10:27)
--- NOTE | 2025-05-28 11:50 | PC.SS ---
Rounding: Pt pending swallow eval, poss need for BArium Study. LUBNA Sofia updated.
--- NOTE | 2025-05-28 13:06 | ESPR_ITS ---
<Statement entered by Selwyn Lazar MD - 06/07/25 09:19> I reviewed above note and agree with findings and plans. I have also personally examined the patient with medicine team and went over assessment and plan with medical team including help desk intern and resident physician. <Statement entered by Ariel Reza MD - 05/28/25 14:57> Patient was examined and case was reviewed with team including attending physician. Note reviewed, I agree with most of its contents and agree with the patient's care as documented by Dr. Meredith Patient seen today at the bedside found alert, awake, oriented x 3 although waxes and wanes at times. Vitals and labs reviewed. Speech therapy evaluated the patient and determined patient cannot take p.o. meds at this time and appropriate meds were switched from IV to p.o. route. Patient will be reevaluated tomorrow in the a.m. by speech to determine if patient will be able to take p.o. diet if not we will consider NG tube placement for feeding purposes and possibly transition to PEG tube if unsuccessful. As far as patients respiratory status he is clinically improving, oxygen requirements have come down currently on minimal oxygen on nasal cannula Will possibly be able to wean off in the a.m. if patient continues to improve. Case discussed with my attending Dr. Nagi Reza MD PGY-2 Disclaimer: Despite multiple revisions, due to the dictation software being used, the document bellow may not be free of grammatical errors including phonetic/typographic errors. However, this does not deter from our commitment to providing health care in the patient's best interest in mind. Documentation for date of: 05/28/25 Subjective Subjective Interval history: Now verbal, tolerating medications with pur?es (crushed), labs improving (WBC 8.2, creatinine 1.4). Speech therapy plans to reassess tomorrow. No concerns for aspiration, continuing NPO until swallow study reattempt tomorrow. Exam Vital Signs Temp Pulse Resp BP Pulse Ox O2 Del Method O2 Flow Rate 98.3 F 70 18 105/54 L 94 L Nasal Cannula 4 05/28/25 12:00 05/28/25 12:00 05/28/25 12:05/28/25 12:05/28/25 12:05/28/25 12:00 05/28/25 12:00 Narrative Exam General: Elderly male, chronically ill-appearing. HEENT: Atraumatic; mucous membranes slightly dry. Lungs: Rhonchi heard diffusely on auscultation; no accessory muscle use; equal chest rise. Heart: Irregularly irregular rhythm; rate controlled in 70s on monitor. Abdomen: Limited exam; nondistended; no guarding observed. Extremities/Skin: Left thigh/buttock necrotic plaque and right thigh necrotic lesions (seen previously); wound care following. Neuro: Alert and oriented x 2. Objective Labs 05/28/25 05:30 05/28/25 05:30 Labs: Laboratory Results - last 24 hr 05/28/25 05:30 WBC 8.2 RBC 3.46 L Hgb 10.6 L Hct 32.4 L MCV 94 MCH 30.6 MCHC 32.7 RDW Std Deviation 47.2 H Plt Count 197 Neut % (Auto) 70 Lymph % (Auto) 16 Thayer % (Auto) 12 Eos % (Auto) 1 Baso % (Auto) 0 Neut # (Auto) 5.7 Lymph # (Auto) 1.3 Thayer # (Auto) 1.0 H Eos # (Auto) 0.1 Baso # (Auto) 0.0 Immature Gran # (Auto) 0.15 H Absolute Nucleated RBC 0.00 Immature Gran % 2 H Nucleated RBC % 0 Sodium 146 H Potassium 3.6 D Chloride 112 H Carbon Dioxide 23.6 Anion Gap 10 BUN 14 Creatinine 1.4 H Estim Creat Clear Calc 31.8 L eGFR 48 L BUN/Creatinine Ratio 10 L Glucose 98 Calculated Osmolality 291 Calcium 7.4 L Corrected Calcium 8.4 L Total Bilirubin 1.0 AST 83 H ALT 40 Alkaline Phosphatase 57 D Total Protein 5.3 L Albumin 2.8 L Globulin 2.5 Albumin/Globulin Ratio 1.1 L ABG Interpretation ABG results: 05/24/25 13:36 ABG pH 7.39 ABG pCO2 25 L ABG pO2 153 H ABG HCO3 15 L ABG O2 Saturation 99 H ABG Base Excess -8 L Quality Measures Quality Measures sepsis Current suspected stage: sepsis Possible source: skin/soft tissue Blood cultures ordered: completed in ED Antibiotic ordered: Yes Advance care planning discussed with:: patient Assessment & Plan Assessment Current Active Medications: Generic Name Dose Route Start Last Admin Trade Name Freq PRN Reason Stop Dose Admin Acetaminophen 650 mg 12/01/25 18:27 05/25/25 16:19 Acetaminophen Supp 650 Mg Supp TN 06/23/25 18:26 650 mg Q6HR PRN Administration Fever > 100.4 or pain 1-5 Albuterol/Ipratropium 3 ml 05/25/25 18:48 Albuterol/Ipratropium (Duoneb) Rt Reyna 3 Ml Nebu INH 06/24/25 18:47 Q2HR PRN SHORTNESS OF BREATH OR WHEEZE Albuterol/Ipratropium 3 ml 05/25/25 19:00 05/28/25 00:30 Albuterol/Ipratropium (Duoneb) Rt Reyna 3 Ml Nebu INH 06/24/25 18:59 Not Given Q6HRRT ODILIA Amiodarone HCl 200 mg 05/28/25 21:00 Amiodarone Hcl 200 Mg Tablet PO 06/27/25 20:59 BID ODILIA Apixaban 2.5 mg 05/28/25 21:00 Apixaban 2.5 Mg Tablet PO 06/27/25 20:59 BID ODILIA Calcium Carbonate 600 mg 05/26/25 09:00 05/28/25 10:02 Calcium Carbonate 600 Mg Tablet PO 06/25/25 08:59 Not Given QDAY ODILIA Piperacillin/Tazobactam/Dextrose 3.375 gm in 50 mls @ 100 mls/hr 05/25/25 00:00 05/28/25 11:54 Zosyn IV 06/01/25 00:00 100 mls/hr Q6HR ODILIA Administration Protocol Vancomycin HCl 200 mls @ 120 mls/hr 05/27/25 10:30 05/28/25 10:27 Vancomycin/Water 1gm Ivpb IV 06/03/25 10:29 120 mls/hr QDAY@1000 ODILIA Administration Dextrose/Sodium Chloride 1,000 mls @ 100 mls/hr 05/28/25 08:30 05/28/25 10:00 D5-Ns IV 06/27/25 08:29 100 mls/hr .Q10H ODILIA Administration Methylprednisolone Sodium Succinate 60 mg 05/26/25 21:00 Methylprednisolone Sod Succ 40 Mg/Ml Vial IV 06/02/25 20:59 On Hold: 05/26/25 21:00 Q12HR ODILIA Multivitamins 1 tab 05/28/25 12:45 Multivitamins Tablet PO 06/27/25 12:44 QDAY ODILIA Ondansetron HCl 4 mg 05/24/25 18:27 Ondansetron Inj 2 Mg/Ml Inj 2 Ml IVP 06/23/25 18:26 Q6H PRN NAUSEA OR VOMITING Protocol Pantoprazole Sodium 40 mg 05/24/25 18:45 05/28/25 10:01 Pantoprazole Inj 40 Mg Vial IVP 06/23/25 18:44 40 mg QDAY ODILIA Administration Pharmacy Consult 1 each 05/25/25 07:29 Vancomycin Pharmacy To Dose 1 Each Each IV 06/23/25 18:29 QDAY PRN CONSULT Silver Sulfadiazine 0 gm 05/27/25 21:00 05/28/25 10:00 Silver Sulfadiazine Cr 1% 400g 400 Gm Jar TOP 06/03/25 20:59 1 appln BID ODILIA Administration Thiamine HCl 100 mg 05/27/25 14:00 05/28/25 10:01 Thiamine Inj 100 Mg/Ml Vial 2 Ml IVP 06/26/25 13:59 100 mg QDAY ODILIA Administration Tramadol HCl 50 mg 05/24/25 18:27 Tramadol Hcl 50 Mg Tablet PO 05/29/25 18:26 Q6HR PRN Pain Scale 6-10 Plan 89M with sepsis secondary to suspected soft tissue infection and LLL pneumonia, COVID-positive, complicated by A-fib with RVR, JOAN, hypernatremia, and sepsis- associated encephalopathy, now on 4 L nasal cannula, talking since yesterday, tolerating pur?es, and showing overall improvement in mentation and labs. # Severe Sepsis without shock 89-year-old male presenting with severe sepsis secondary to Suspected necrotizing soft tissue infection (possible necrotizing fasciitis vs extensive necrotic cellulitis) involving the left upper thigh/buttock (25?15 cm necrotic plaque) and medial right thigh necrotic lesions Associated with altered mental status, mottled cool skin, lactic acidosis (5.6 - > 4.3), WBC 18.6, and acute kidney injury. Patient is only responsive to painful stimuli, indicating sepsis-associated encephalopathy?. Skin findings are extensive and highly concerning for a rapidly progressive deep soft tissue infection. SOFA score: 9 (Resp 2, Liver 1, CONSULTING SOLUTION MANAGER 4, Renal 1, CV 1). LRINEC score: 4 Low risk, but not no risk. 05/26: Sepsis with organ dysfunction (AMS, JOAN, lactate fluctuations). Sources: necrotic soft tissue infection + pneumonia + COVID. WBC improving. Lactic acid overall trending down but fluctuating slightly. 05/27: Patient's mentation improved, white blood cell improving, lactic acid resolved. 05/28: WBC improving (8.2), lactate trending downward (2.1), mentation improving, verbal today. Plan: * Continue Vancomycin + Zosyn 3.375 Q8h (05/24- ) * Maintain MAP >65; upgrade to icu only if resistant hypotension develops (currently not in shock). * Strict I/Os * Blood cultures ?2 pending * Daily CBC, CMP, coagulation studies. * Continuous monitoring for progression of sepsis, worsening perfusion, or mental status deterioration. # Soft Tissue Infection, improving Large necrotic plaque (25?15 cm) on left thigh/buttock and multiple right thigh necrotic lesions, mottled skin, severe systemic toxicity No current concern for Necrotizing fascitis No abscess or osteomyelitis on CT abdomen/pelvis, but CT cannot rule out nec fasc. If clinically worsens will reevaluate and consider consult surgerey 05/27: Wound care team spoke to me and stated wound is much improved and on admission no clinical suspicion for debridement. Plan: * Wound care following. * Continue broad-spectrum antibiotics as above. * Daily wound checks # Left Lower Lobe Pneumonia, improving CT abdomen/pelvis shows significant left-base pneumonia, likely contributing to sepsis. Procalcitonin 0.56 supports bacterial infection. Improving pneumonia, stable on 4 L nasal cannula. Plan: * Continue Zosyn 3.375 Q8H * Repeat CXR in 24 hrs or earlier if clinical decline. * Evaluate for possible aspiration (see separate problem below). # COVID-19 Infection Plan: * Supportive care. * Monitor for worsening hypoxia. * Continue isolation precautions. # Atrial Fibrillation with RVR Newly diagnosed overnight was started on amio and heparin drip, transition to IV as patient failed swallow study. Transition back to oral crushed with pur?ed diet, approved by speech therapy. No liquids. Plan: * Continue amiodarone 200 mg PO. * Continue Eliquis 2.5 mg BID. * Telemetry monitoring. * Repeat EKG as needed. # Sepsis-Associated Encephalopathy Profound AMS; only responsive to painful stimuli on presentation, when seen patient he responded to verbal after waking patient up physically No acute intracranial hemorrhage or stroke on CT head. Likely due to sepsis, metabolic derangements, and hypoperfusion. Improvement significantly since past few days conversating now. Plan: * Serial neuro exams. * Avoid sedating or neurotoxic medications. * Repeat CT if AMS does not improve with sepsis treatment. # Acute Kidney Injury, resolved Cr 2.1, GFR 30, BUN 72. Baseline unknown. Likely pre-renal from sepsis, hypoperfusion, and dehydration. This monring Cr 1.4 Plan: * Continue IV fluid resuscitation. * Trend BMP daily. * Will consider consult nephrology if worsening or oliguria develops. * Adjust all renally cleared medications. # Cirrhosis Pattern (suspected based on CT) CT abdomen shows cirrhosis pattern Ammonia mildly elevated at 49; could contribute to encephalopathy but cannot diagnose without clinical history. Plan: * Trend liver function tests. * Consider lactulose after sepsis and metabolic causes addressed. * GI consult if clinical suspicion rises. # Aspiration Risk Several days of poor intake + acute AMS -> high risk for macroaspiration. CT shows LLL pneumonia, possible aspiration component. Failed swallow study, will repeat in the AM. Plan: * Keep NPO until mental status improves. * Ordered swallow eval again tomorrow morning * Will order barium swallow study. * Antibiotic coverage adequate for aspiration. # Lactic Acidosis, resolved Lactate 5.6 -> 4.3->2.7->3.9, improving with fluids. Indicative of tissue hypoperfusion from severe sepsis. Lactic acid flucutaing, down and up last is 3.8 from 2.1 this morning 12/4: Lactate this morning 1.8. Plan: * Continue resuscitation. * Stop trend. * Treat underlying infection sources. # Electrolyte Abnormalities, improving #Hypernatremia #Hypokalemia #Hyperchloremia #Hypomagnesemia #Hypophosphatemia Sodium 146, potassium 3.6, chloride 112, magnesium 1.7. Phosphate 2.2 Plan: * Monitor electrolytes daily. * Continue D5NS. * Repleted potassium and phosphate. * Replace as needed. # Elevated Troponin (likely demand ischemia) Troponin 0.145 in setting of systemic illness No evidence of ACS on imaging/initial evaluation. Last troponin 0.134 downtrending Plan: * Stopped trending. * Tele monitoring. # Malnutrition Poor intake, cachectic appearance, failed swallow study. Speech therapy following will reassess tomorrow, stated patient has improved now tolerating pur?es but still n.p.o. except for meds. Plan: * Continue NPO until swallow study completed. * Nutrition consult, following. * Consider NG tube if prolonged NPO status. Health Maintenance: Disposition: Admit to telemetry for monitoring Feeding: NPO except meds with pur?ed not water. Thromboprophylaxis: eliquis GI Prophylaxis: IV Protonix. Code Status: Full code; reassess if prognosis changes. Antibiotic: Vanc and zosyn [05/24- ] ----- Plan discussed with attending physician Dr. Lazar and senior resident Dr. Shamar Meredith MD PGY-1 Internal Medicine
--- NOTE | 2025-05-28 15:00 | PC.SS ---
MARILUZ LvL 1 sent via file exchange to Kimberlyn at [facility]
[2025-05-28] MEDS: MULTIVITAMINS TABLET 1 TAB PO (15:46)
[2025-05-28] MEDS: ALBUTEROL/IPRATROPIUM (Duoneb) RT SOL 3 ML NEBU INH (19:05)
[2025-05-28] MEDS: APIXABAN 2.5 MG TABLET PO (21:20)
[2025-05-28] MEDS: AMIODARONE HCL 200 MG TABLET PO (21:20)
[2025-05-29] VITALS (13 sets, daily range): BP systolic 97–113; BP diastolic 50–78; PULSE 64–85; RESP 20–33; TEMP 36.1–36.8; O2SAT 94–100; BMI 20.8
[2025-05-29] MEDS: PIPER/TAZO 3.375 GM PREMIX 3.375 GM/50 ML BAG IV ×5 (00:02→23:52)
[2025-05-29] MEDS: ALBUTEROL/IPRATROPIUM (Duoneb) RT SOL 3 ML NEBU INH ×4 (01:34→20:06)
[2025-05-29] MEDS: DEXTROSE 5%-NS 1,000 ML 100 ML IV (05:30)
[2025-05-29 05:34] LABS: Basophils # (Auto) 0.0 Thou/mm3 (0.0-0.2); Basophils % (Auto) 0 % (0-2.5); Eosinophils # (Auto) 0.1 Thou/mm3 (0.0-0.5); Eosinophils % (Auto) 2 % (0-10); Hematocrit 31.4 % (41.0-53.0); Hemoglobin 10.0 g/dL (13.5-16.0); Immature Granulocytes Auto 0.15 Thou/mm3 (0.00-0.00); Lymphocytes # (Auto) 1.0 Thou/mm3 (1.0-4.8); Lymphocytes % (Auto) 13 % (10-50); Mean Corpuscular HGB Conc 31.8 g/dl (31.0-37.0); Mean Corpuscular Hemoglobin 30.1 pg (25.0-35.0); Mean Corpuscular Volume 95 fL (80-100); Monocytes # (Auto) 0.9 Thou/mm3 (0.0-0.8); Monocytes % (Auto) 12 % (0-12); Neutrophils # (Auto) 5.2 Thou/mm3 (1.8-7.7); Neutrophils % (Auto) 71 % (37-80); Nucleated Red Blood Cell # 0.00 Thou/mm3 (0.00-0.00); Nucleated Red Blood Cell % 0 /100 WBC (0); Platelet Count 202 Thou/mm3 (140-440); RDW Standard Deviation 48.3 fL (35.1-43.9); Red Blood Count 3.32 Miln/mm3 (4.50-5.90); White Blood Count 7.4 Thou/mm3 (3.8-10.6)
[2025-05-29 06:13] LABS: Alanine Aminotransferase 38 U/L (10-49); Albumin, Serum 2.7 gm/dL (3.4-4.8); Albumin/Globulin Ratio 1.1 (1.2-2.2); Alkaline Phosphatase 59 U/L (46-116); Anion Gap 11 (7-16); Aspartate Amino Transferase 78 U/L (0-34); BUN/Creatinine Ratio 7 Ratio (12-20); Bilirubin,Total 0.8 mg/dL (0.3-1.2); Blood Urea Nitrogen 9 mg/dL (9-23); Calcium 7.1 mg/dL (8.3-10.6); Calcium (Corrected) 8.1 mg/dL (8.5-10.1); Carbon Dioxide 23.3 mMol/L (20.0-31.0); Chloride 116 mMol/L (98-107); Creatinine (Component) 1.3 mg/dL (0.6-1.3); Estimated Creatinine Clearance 34.2 mL/min (>60); Globulin 2.5 gm/dL (2.3-3.5); Glucose 145 mg/dL (74-106); Osmolality,Calculated 299 (275-295); Potassium 3.4 mMol/L (3.4-5.1); Sodium 150 mMol/L (136-145); Total Protein 5.2 gm/dL (5.7-8.2); eGFR 53 See Note
[2025-05-29] MEDS: DEXTROSE 5%-WATER 1,000 ML 75 ML IV ×2 (09:14→22:33)
[2025-05-29] MEDS: APIXABAN 2.5 MG TABLET PO ×2 (09:16→20:31)
[2025-05-29] MEDS: MULTIVITAMINS TABLET 1 TAB PO (09:16)
[2025-05-29] MEDS: CALCIUM CARBONATE 600 MG TABLET PO (09:16)
[2025-05-29] MEDS: THIAMINE INJ 100 MG/ML VIAL 2 ML IVP (09:17)
[2025-05-29] MEDS: AMIODARONE HCL 200 MG TABLET PO ×2 (09:19→20:30)
[2025-05-29] MEDS: SILVER SULFADIAZINE CR 1% 400G 400 GM JAR TOP ×2 (09:55→20:30)
--- NOTE | 2025-05-29 10:16 | XR_ITS ---
Examination: Venous duplex lower extremity sonogram, bilateral. Date and time of exam: May 29, 2025, 1152 hours INDICATIONS: Bilateral leg swelling beginning 2 days ago, COVID positive Technique: Multiple sonographic images of the deep venous system have been obtained. B-mode/2-D grayscale imaging of vascular structures and Doppler spectral analysis (waveforms) and color performed Both legs are examined. Findings: Normal deep venous system right leg Extensive acute thrombus involving the entire deep venous system left leg IMPRESSION: Extensive acute occlusive thrombus involving the entire deep venous system left leg
[2025-05-29] MEDS: VANCOMYCIN/WATER 1GM IVPB 200 ML IV (10:31)
--- NOTE | 2025-05-29 15:25 | ESPR_ITS ---
<Statement entered by Selwyn Lazar MD - 06/07/25 09:23> I reviewed above note and agree with findings and plans. I have also personally examined the patient with medicine team and went over assessment and plan with medical team including intern architect and resident physician. Documentation for date of: 05/29/25 Subjective Subjective Interval history: No acute overnight events. Doing well today, no new complaints. Vitals and labs are stable except for mild hyponatremia for which D5W was resumed. He still has persistent dysphagia on repeat evaluation with speech therapy today. Recommendations were made for modified barium study to be done on Saturday. I have contacted her daughter, Rosalinda, and provided an update about his condition and our upcoming treatment plan. We attempted NG tube but patient refused. Daughter was also informed and agrees with the plan to repeat modified barium study. Exam Vital Signs Temp Pulse Resp BP Pulse Ox O2 Del Method O2 Flow Rate 97.0 F 75 26 H 99/76 95 Nasal Cannula 4 05/29/25 12:00 05/29/25 12:49 05/29/25 12:49 05/29/25 12:00 05/29/25 12:49 05/29/25 12:00 05/29/25 12:49 Narrative Exam General: Elderly male, chronically ill-appearing. HEENT: Atraumatic; mucous membranes slightly dry. Lungs: Rhonchi heard diffusely on auscultation; no accessory muscle use; equal chest rise. Heart: Irregularly irregular rhythm; rate controlled in 70s on monitor. Abdomen: Limited exam; nondistended; no guarding observed. Extremities/Skin: Left thigh/buttock necrotic plaque and right thigh necrotic lesions (seen previously); wound care following. Neuro: Alert and oriented x 2. Objective Labs 05/29/25 04:15 05/29/25 04:15 Labs: Laboratory Results - last 24 hr 05/29/25 04:15 WBC 7.4 RBC 3.32 L Hgb 10.0 L Hct 31.4 L MCV 95 MCH 30.1 MCHC 31.8 RDW Std Deviation 48.3 H Plt Count 202 Neut % (Auto) 71 Lymph % (Auto) 13 Maries % (Auto) 12 Eos % (Auto) 2 Baso % (Auto) 0 Neut # (Auto) 5.2 Lymph # (Auto) 1.0 Maries # (Auto) 0.9 H Eos # (Auto) 0.1 Baso # (Auto) 0.0 Immature Gran # (Auto) 0.15 H Absolute Nucleated RBC 0.00 Immature Gran % 2 H Nucleated RBC % 0 Sodium 150 H Potassium 3.4 Chloride 116 H Carbon Dioxide 23.3 Anion Gap 11 BUN 9 Creatinine 1.3 Estim Creat Clear Calc 34.2 L eGFR 53 L BUN/Creatinine Ratio 7 L Glucose 145 H Calculated Osmolality 299 H Calcium 7.1 L Corrected Calcium 8.1 L Total Bilirubin 0.8 AST 78 H ALT 38 Alkaline Phosphatase 59 Total Protein 5.2 L Albumin 2.7 L Globulin 2.5 Albumin/Globulin Ratio 1.1 L ABG Interpretation ABG results: 05/24/25 13:36 ABG pH 7.39 ABG pCO2 25 L ABG pO2 153 H ABG HCO3 15 L ABG O2 Saturation 99 H ABG Base Excess -8 L Quality Measures Quality Measures sepsis Current suspected stage: sepsis Possible source: skin/soft tissue Blood cultures ordered: completed in ED Antibiotic ordered: Yes Advance care planning discussed with:: patient Assessment & Plan Assessment Current Active Medications: Generic Name Dose Route Start Last Admin Trade Name Freq PRN Reason Stop Dose Admin Acetaminophen 650 mg 05/24/25 18:27 05/25/25 16:19 Acetaminophen Supp 650 Mg Supp CO 06/23/25 18:26 650 mg Q6HR PRN Administration Fever > 100.4 or pain 1-5 Albuterol/Ipratropium 3 ml 05/25/25 18:48 Albuterol/Ipratropium (Duoneb) Rt Reyna 3 Ml Nebu INH 06/24/25 18:47 Q2HR PRN SHORTNESS OF BREATH OR WHEEZE Albuterol/Ipratropium 3 ml 05/25/25 19:00 05/29/25 12:47 Albuterol/Ipratropium (Duoneb) Rt Reyna 3 Ml Nebu INH 06/24/25 18:59 3 ml Q6HRRT ODILIA Administration Amiodarone HCl 200 mg 05/28/25 21:00 05/29/25 09:19 Amiodarone Hcl 200 Mg Tablet PO 06/27/25 20:59 200 mg BID ODILIA Administration Apixaban 2.5 mg 05/28/25 21:00 05/29/25 09:16 Apixaban 2.5 Mg Tablet PO 06/27/25 20:59 2.5 mg BID ODILIA Administration Calcium Carbonate 600 mg 05/26/25 09:00 05/29/25 09:16 Calcium Carbonate 600 Mg Tablet PO 06/25/25 08:59 600 mg QDAY ODILIA Administration Piperacillin/Tazobactam/Dextrose 3.375 gm in 50 mls @ 100 mls/hr 05/25/25 00:00 05/29/25 14:41 Zosyn IV 06/01/25 00:00 100 mls/hr Q6HR ODILIA Administration Protocol Vancomycin HCl 200 mls @ 120 mls/hr 05/27/25 10:30 05/29/25 10:31 Vancomycin/Water 1gm Ivpb IV 06/03/25 10:29 120 mls/hr QDAY@1000 ODILIA Administration Protocol Dextrose 1,000 mls @ 75 mls/hr 05/29/25 07:30 05/29/25 09:14 D5w IV 06/28/25 07:29 75 mls/hr .[id number] ODILIA Administration Methylprednisolone Sodium Succinate 60 mg 05/26/25 21:00 Methylprednisolone Sod Succ 40 Mg/Ml Vial IV 06/02/25 20:59 On Hold: 05/26/25 21:00 Q12HR ODILIA Multivitamins 1 tab 05/28/25 12:45 05/29/25 09:16 Multivitamins Tablet PO 06/27/25 12:44 1 tab QDAY ODILIA Administration Ondansetron HCl 4 mg 05/24/25 18:27 Ondansetron Inj 2 Mg/Ml Inj 2 Ml IVP 06/23/25 18:26 Q6H PRN NAUSEA OR VOMITING Protocol Pantoprazole Sodium 40 mg 05/24/25 18:45 05/29/25 09:16 Pantoprazole Inj 40 Mg Vial IVP 06/23/25 18:44 40 mg QDAY ODILIA Administration Pharmacy Consult 1 each 05/25/25 07:29 Vancomycin Pharmacy To Dose 1 Each Each IV 06/23/25 18:29 QDAY PRN CONSULT Silver Sulfadiazine 0 gm 05/27/25 21:00 05/29/25 09:55 Silver Sulfadiazine Cr 1% 400g 400 Gm Jar TOP 06/03/25 20:59 1 appln BID ODILIA Administration Thiamine HCl 100 mg 05/27/25 14:00 05/29/25 09:17 Thiamine Inj 100 Mg/Ml Vial 2 Ml IVP 06/26/25 13:59 100 mg QDAY ODILIA Administration Tramadol HCl 50 mg 05/24/25 18:27 Tramadol Hcl 50 Mg Tablet PO 05/29/25 18:26 Q6HR PRN Pain Scale 6-10 Plan 89M with sepsis secondary to suspected soft tissue infection and LLL pneumonia, COVID-positive, complicated by A-fib with RVR, JOAN, hypernatremia, and sepsis- associated encephalopathy, now on 4 L nasal cannula, talking since yesterday, tolerating pur?es, and showing overall improvement in mentation and labs. Pharyngeal dysphagia Aspiration risk Has persistent dysphagia on multiple evaluation by speech therapy. Although able to swallow pills safely. Patient had recommended videofluoroscopy swallow study and MBS which will be done on Saturday. Attempt for NG tube placement failed today as patient uncooperative. * Keep NPO until mental status improves. * Antibiotic coverage adequate for aspiration. * Continue D5W * Pending MBS on Saturday # Severe Sepsis without shock (resolved) 89-year-old male presenting with severe sepsis secondary to Suspected necrotizing soft tissue infection (possible necrotizing fasciitis vs extensive necrotic cellulitis) involving the left upper thigh/buttock (25?15 cm necrotic plaque) and medial right thigh necrotic lesions Associated with altered mental status, mottled cool skin, lactic acidosis (5.6 - > 4.3), WBC 18.6, and acute kidney injury. Patient is only responsive to painful stimuli, indicating sepsis-associated encephalopathy?. Skin findings are extensive and highly concerning for a rapidly progressive deep soft tissue infection. 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 LRINEC score: 4 Low risk, but not no risk. 05/26: Sepsis with organ dysfunction (AMS, JOAN, lactate fluctuations). Sources: necrotic soft tissue infection + pneumonia + COVID. WBC improving. Lactic acid overall trending down but fluctuating slightly. 05/27: Patient's mentation improved, white blood cell improving, lactic acid resolved. 05/28: WBC improving (8.2), lactate trending downward (2.1), mentation improving, verbal today. Plan: * Continue Vancomycin + Zosyn 3.375 Q8h (05/24- ) * Maintain MAP >65; upgrade to icu only if resistant hypotension develops (currently not in shock). * Strict I/Os * Blood cultures ?2 pending * Daily CBC, CMP, coagulation studies. * Continuous monitoring for progression of sepsis, worsening perfusion, or mental status deterioration. # Soft Tissue Infection, improving Large necrotic plaque (25?15 cm) on left thigh/buttock and multiple right thigh necrotic lesions, mottled skin, severe systemic toxicity No current concern for Necrotizing fascitis No abscess or osteomyelitis on CT abdomen/pelvis, but CT cannot rule out nec fasc. If clinically worsens will reevaluate and consider consult surgerey 05/27: Wound care team spoke to me and stated wound is much improved and on admission no clinical suspicion for debridement. Plan: * Wound care following. * Continue broad-spectrum antibiotics as above. * Daily wound checks # Left Lower Lobe Pneumonia, improving CT abdomen/pelvis shows significant left-base pneumonia, likely contributing to sepsis. Procalcitonin 0.56 supports bacterial infection. Improving pneumonia, stable on 4 L nasal cannula. Plan: * Continue Zosyn 3.375 Q8H * Repeat CXR in 24 hrs or earlier if clinical decline. * Evaluate for possible aspiration (see separate problem below). # COVID-19 Infection Plan: * Supportive care. * Monitor for worsening hypoxia. * Continue isolation precautions. # Atrial Fibrillation with RVR Newly diagnosed overnight was started on amio and heparin drip, transition to IV as patient failed swallow study. Transition back to oral crushed with pur?ed diet, approved by speech therapy. No liquids. Plan: * Continue amiodarone 200 mg PO. * Continue Eliquis 2.5 mg BID. * Telemetry monitoring. * Repeat EKG as needed. # Sepsis-Associated Encephalopathy Profound AMS; only responsive to painful stimuli on presentation, when seen patient he responded to verbal after waking patient up physically No acute intracranial hemorrhage or stroke on CT head. Likely due to sepsis, metabolic derangements, and hypoperfusion. Improvement significantly since past few days conversating now. Plan: * Serial neuro exams. * Avoid sedating or neurotoxic medications. * Repeat CT if AMS does not improve with sepsis treatment. # Acute Kidney Injury, resolved Cr 2.1, GFR 30, BUN 72. Baseline unknown. Likely pre-renal from sepsis, hypoperfusion, and dehydration. This monring Cr 1.4 Plan: * Continue IV fluid resuscitation. * Trend BMP daily. * Will consider consult nephrology if worsening or oliguria develops. * Adjust all renally cleared medications. # Cirrhosis Pattern (suspected based on CT) CT abdomen shows cirrhosis pattern Ammonia mildly elevated at 49; could contribute to encephalopathy but cannot diagnose without clinical history. Plan: * Trend liver function tests. * Consider lactulose after sepsis and metabolic causes addressed. * GI consult if clinical suspicion rises. # Aspiration Risk Several days of poor intake + acute AMS -> high risk for macroaspiration. CT shows LLL pneumonia, possible aspiration component. Failed swallow study, will repeat in the AM. Plan: * Keep NPO until mental status improves. * Ordered swallow eval again tomorrow morning * Will order barium swallow study. * Antibiotic coverage adequate for aspiration. # Lactic Acidosis, resolved Lactate 5.6 -> 4.3->2.7->3.9, improving with fluids. Indicative of tissue hypoperfusion from severe sepsis. Lactic acid flucutaing, down and up last is 3.8 from 2.1 this morning 12/4: Lactate this morning 1.8. Plan: * Continue resuscitation. * Stop trend. * Treat underlying infection sources. # Electrolyte Abnormalities, improving # Mild hypernatremia #Hypokalemia #Hyperchloremia #Hypomagnesemia #Hypophosphatemia Sodium 146, potassium 3.6, chloride 112, magnesium 1.7. Phosphate 2.2 Plan: * Monitor electrolytes daily. * Continue D5W. * Repleted potassium and phosphate. * Replace as needed. # NSTEMI type II (resolved) Troponin 0.145 in setting of systemic illness No evidence of ACS on imaging/initial evaluation. Last troponin 0.134 downtrending Plan: * Stopped trending. * Tele monitoring. # Malnutrition Poor intake, cachectic appearance, failed swallow study. Speech therapy following will reassess tomorrow, stated patient has improved now tolerating pur?es but still n.p.o. except for meds. Plan: * Continue NPO until swallow study completed. * Nutrition consult, following. * Consider NG tube if prolonged NPO status. Health Maintenance: Disposition: Admit to telemetry for monitoring Feeding: NPO except meds with pur?ed not water. Thromboprophylaxis: eliquis GI Prophylaxis: IV Protonix. Code Status: Full code; reassess if prognosis changes. Antibiotic: Vanc and zosyn [05/24- ] Case was discussed with attending physician. Clinton Hanoun, PGY II This document was transcribed using voice recognition technology. Minor inaccuracies may be present.
[2025-05-30] VITALS (13 sets, daily range): BP systolic 104–122; BP diastolic 56–78; PULSE 61–80; RESP 15–24; TEMP 36.1–37; O2SAT 94–98
[2025-05-30] MEDS: ALBUTEROL/IPRATROPIUM (Duoneb) RT SOL 3 ML NEBU INH ×3 (01:26→19:05)
[2025-05-30] MEDS: PIPER/TAZO 3.375 GM PREMIX 3.375 GM/50 ML BAG IV ×2 (05:07→12:43)
[2025-05-30 06:02] LABS: Basophils # (Auto) 0.0 Thou/mm3 (0.0-0.2); Basophils % (Auto) 0 % (0-2.5); Eosinophils # (Auto) 0.2 Thou/mm3 (0.0-0.5); Eosinophils % (Auto) 2 % (0-10); Hematocrit 32.4 % (41.0-53.0); Hemoglobin 10.4 g/dL (13.5-16.0); Immature Granulocytes Auto 0.18 Thou/mm3 (0.00-0.00); Lymphocytes # (Auto) 1.2 Thou/mm3 (1.0-4.8); Lymphocytes % (Auto) 13 % (10-50); Mean Corpuscular HGB Conc 32.1 g/dl (31.0-37.0); Mean Corpuscular Hemoglobin 30.4 pg (25.0-35.0); Mean Corpuscular Volume 95 fL (80-100); Monocytes # (Auto) 1.0 Thou/mm3 (0.0-0.8); Monocytes % (Auto) 11 % (0-12); Neutrophils # (Auto) 6.6 Thou/mm3 (1.8-7.7); Neutrophils % (Auto) 72 % (37-80); Nucleated Red Blood Cell # 0.00 Thou/mm3 (0.00-0.00); Nucleated Red Blood Cell % 0 /100 WBC (0); Platelet Count 228 Thou/mm3 (140-440); RDW Standard Deviation 48.4 fL (35.1-43.9); Red Blood Count 3.42 Miln/mm3 (4.50-5.90); White Blood Count 9.2 Thou/mm3 (3.8-10.6)
[2025-05-30 06:27] LABS: Alanine Aminotransferase 38 U/L (10-49); Albumin, Serum 2.7 gm/dL (3.4-4.8); Albumin/Globulin Ratio 0.9 (1.2-2.2); Alkaline Phosphatase 66 U/L (46-116); Anion Gap 10 (7-16); Aspartate Amino Transferase 68 U/L (0-34); BUN/Creatinine Ratio 6 Ratio (12-20); Bilirubin,Total 1.0 mg/dL (0.3-1.2); Blood Urea Nitrogen 7 mg/dL (9-23); Calcium 7.5 mg/dL (8.3-10.6); Calcium (Corrected) 8.5 mg/dL (8.5-10.1); Carbon Dioxide 25.1 mMol/L (20.0-31.0); Chloride 112 mMol/L (98-107); Creatinine (Component) 1.2 mg/dL (0.6-1.3); Estimated Creatinine Clearance 37.8 mL/min (>60); Globulin 3.0 gm/dL (2.3-3.5); Glucose 117 mg/dL (74-106); Osmolality,Calculated 291 (275-295); Potassium 3.0 mMol/L (3.4-5.1); Sodium 147 mMol/L (136-145); Total Protein 5.7 gm/dL (5.7-8.2); eGFR 58 See Note
[2025-05-30] MEDS: MULTIVITAMINS TABLET 1 TAB PO (09:36)
[2025-05-30] MEDS: CALCIUM CARBONATE 600 MG TABLET PO (09:36)
[2025-05-30] MEDS: THIAMINE INJ 100 MG/ML VIAL 2 ML IVP (09:38)
[2025-05-30] MEDS: APIXABAN 2.5 MG TABLET PO (09:38)
[2025-05-30] MEDS: AMIODARONE HCL 200 MG TABLET PO ×2 (09:39→20:33)
[2025-05-30] MEDS: POTASSIUM PHOS 22.5 MMOL in SODIUM CHLORIDE 0.9% 500 ML 500 ML 82.778 MMOL IV (09:43)
[2025-05-30] MEDS: SILVER SULFADIAZINE CR 1% 400G 400 GM JAR TOP ×2 (09:44→20:44)
[2025-05-30 10:22] LABS: Vancomycin,Trough 14.5 mcg/mL (5.0-10.0)
[2025-05-30] MEDS: DEXTROSE 5%-WATER 1,000 ML 75 ML IV (10:56)
[2025-05-30] MEDS: ENOXAPARIN SOD INJ 100 MG/ML SYRINGE 60 MG SC (11:28)
--- NOTE | 2025-05-30 14:36 | ESPR_ITS ---
<Statement entered by Selwyn Lazar MD - 06/07/25 09:23> I reviewed above note and agree with findings and plans. I have also personally examined the patient with medicine team and went over assessment and plan with medical team including international accounting manager and resident physician. Documentation for date of: 05/30/25 Subjective Subjective Interval history: No acute events overnight. Patient doing well this morning, conversational, alert, denies pain except mild discomfort in left leg. Continues to tolerate pur?es, all meds crushed and given with pur?e per speech therapy. Failed swallow study again yesterday; MBS scheduled for Saturday. Daughter updated yesterday and agrees with the plan. Vital signs stable. Oxygen requirement 4 L NC, comfortable. Left leg Doppler yesterday revealed: extensive acute occlusive thrombus throughout entire deep venous system of LLE. Exam Vital Signs Temp Pulse Resp BP Pulse Ox O2 Del Method O2 Flow Rate 97.9 F 73 18 120/57 L 98 Nasal Cannula 2 05/30/25 12:00 05/30/25 12:00 05/30/25 12:00 05/30/25 12:00 05/30/25 12:00 05/30/25 12:05/30/25 12:00 Narrative Exam General: Elderly male, chronically ill-appearing but alert, answers simple questions. HEENT: Mucous membranes moist. Lungs: Rhonchi diffusely; nonlabored breathing; symmetric chest rise. Heart: Irregularly irregular rhythm; rate controlled in 70s?80s. Abdomen: Soft, nondistended, no guarding. Extremities/Skin: Left thigh/buttock necrotic plaque and right thigh necrotic lesions improving; wound care following. Left leg with mild swelling and tenderness consistent with DVT. Neuro: Alert and oriented ?2; improved mentation. Objective Labs 05/30/25 04:47 05/30/25 04:47 Labs: Laboratory Results - last 24 hr 05/30/25 05/30/25 04:47 09:50 WBC 9.2 RBC 3.42 L Hgb 10.4 L Hct 32.4 L MCV 95 MCH 30.4 MCHC 32.1 RDW Std Deviation 48.4 H Plt Count 228 Neut % (Auto) 72 Lymph % (Auto) 13 [place] % (Auto) 11 Eos % (Auto) 2 Baso % (Auto) 0 Neut # (Auto) 6.6 Lymph # (Auto) 1.2 [place] # (Auto) 1.0 H Eos # (Auto) 0.2 Baso # (Auto) 0.0 Immature Gran # (Auto) 0.18 H Absolute Nucleated RBC 0.00 Immature Gran % 2 H Nucleated RBC % 0 Sodium 147 H Potassium 3.0 L Chloride 112 H Carbon Dioxide 25.1 Anion Gap 10 BUN 7 L Creatinine 1.2 Estim Creat Clear Calc 37.8 L eGFR 58 L BUN/Creatinine Ratio 6 L Glucose 117 H Calculated Osmolality 291 Calcium 7.5 L Corrected Calcium 8.5 Total Bilirubin 1.0 AST 68 H ALT 38 Alkaline Phosphatase 66 Total Protein 5.7 Albumin 2.7 L Globulin 3.0 Albumin/Globulin Ratio 0.9 L Vancomycin Trough 14.5 H ABG Interpretation ABG results: 05/24/25 13:36 ABG pH 7.39 ABG pCO2 25 L ABG pO2 153 H ABG HCO3 15 L ABG O2 Saturation 99 H ABG Base Excess -8 L Quality Measures Quality Measures sepsis Current suspected stage: sepsis Possible source: skin/soft tissue Blood cultures ordered: completed in ED Antibiotic ordered: Yes Advance care planning discussed with:: patient Assessment & Plan Assessment Current Active Medications: Generic Name Dose Route Start Last Admin Trade Name Freq PRN Reason Stop Dose Admin Acetaminophen 650 mg 05/24/25 18:27 05/25/25 16:19 Acetaminophen Supp 650 Mg Supp OH 06/23/25 18:26 650 mg Q6HR PRN Administration Fever > 100.4 or pain 1-5 Albuterol/Ipratropium 3 ml 05/25/25 18:48 Albuterol/Ipratropium (Duoneb) Rt Reyna 3 Ml Nebu INH 06/24/25 18:47 Q2HR PRN SHORTNESS OF BREATH OR WHEEZE Albuterol/Ipratropium 3 ml 05/25/25 19:00 05/30/25 12:41 Albuterol/Ipratropium (Duoneb) Rt Reyna 3 Ml Nebu INH 06/24/25 18:59 3 ml Q6HRRT ODILIA Administration Amiodarone HCl 200 mg 05/28/25 21:00 05/30/25 09:39 Amiodarone Hcl 200 Mg Tablet PO 06/27/25 20:59 200 mg BID ODILIA Administration Calcium Carbonate 600 mg 05/26/25 09:00 05/30/25 09:36 Calcium Carbonate 600 Mg Tablet PO 06/25/25 08:59 600 mg QDAY ODILIA Administration Enoxaparin Sodium 60 mg 05/30/25 10:45 05/30/25 11:28 Enoxaparin Sod Inj 100 Mg/Ml Syringe 1 mg/kg (60 mg) 06/13/25 10:44 60 mg SC Administration BID ODILIA Piperacillin/Tazobactam/Dextrose 3.375 gm in 50 mls @ 100 mls/hr 05/25/25 00:00 05/30/25 12:43 Zosyn IV 06/01/25 00:00 100 mls/hr Q6HR ODILIA Administration Protocol Dextrose 1,000 mls @ 75 mls/hr 05/29/25 07:30 05/30/25 10:56 D5w IV 06/28/25 07:29 75 mls/hr .[id number] ODILIA Administration Vancomycin HCl 250 mls @ 125 mls/hr 05/30/25 10:40 Vancomycin/Water 1250 Mg Ivpb IV 06/03/25 10:29 QDAY@1000 REPLACED BY [facility] Protocol Methylprednisolone Sodium Succinate 60 mg 05/26/25 21:00 Methylprednisolone Sod Succ 40 Mg/Ml Vial IV 06/02/25 20:59 On Hold: 05/26/25 21:00 Q12HR ODILIA Multivitamins 1 tab 05/28/25 12:45 05/30/25 09:36 Multivitamins Tablet PO 06/27/25 12:44 1 tab QDAY ODILIA Administration Ondansetron HCl 4 mg 05/24/25 18:27 Ondansetron Inj 2 Mg/Ml Inj 2 Ml IVP 06/23/25 18:26 Q6H PRN NAUSEA OR VOMITING Protocol Pantoprazole Sodium 40 mg 05/24/25 18:45 05/30/25 09:38 Pantoprazole Inj 40 Mg Vial IVP 06/23/25 18:44 40 mg QDAY ODILIA Administration Pharmacy Consult 1 each 05/25/25 07:29 Vancomycin Pharmacy To Dose 1 Each Each IV 06/23/25 18:29 QDAY PRN CONSULT Silver Sulfadiazine 0 gm 05/27/25 21:00 05/30/25 09:44 Silver Sulfadiazine Cr 1% 400g 400 Gm Jar TOP 06/03/25 20:59 1 appln BID ODILIA Administration Thiamine HCl 100 mg 05/27/25 14:00 05/30/25 09:38 Thiamine Inj 100 Mg/Ml Vial 2 Ml IVP 06/26/25 13:59 100 mg QDAY ODILIA Administration Plan 89M with severe sepsis (now resolved) secondary to soft tissue infection + LLL pneumonia, COVID-positive, previously with A-fib w/ RVR, JOAN, hypernatremia, and sepsis-associated encephalopathy, now on 4 L NC, mentation greatly improved, tolerating pur?es, but found to have extensive acute occlusive DVT of entire L lower extremity, currently on Eliquis 2.5 mg BID requiring escalation to full DVT treatment dosing. # Acute Extensive Left Lower Extremity DVT Extensive acute occlusive thrombus involving entire deep venous system of the LLE confirmed by Doppler yesterday. Patient was on Eliquis 2.5 mg BID, which is not therapeutic for acute DVT. No bleeding, Hgb stable. Speech therapy allows crushed pills in pur?e -> safe for DOAC administration. Plan: * Escalate to full therapeutic DVT dosing of Eliquis: 10 mg BID x 7 days, then 5 mg BID. * Monitor for any bleeding (stool, urine, gums). * Daily CBC. * If unable to tolerate pur?e in subsequent days -> switch to heparin drip temporarily. #Pharyngeal dysphagia #Aspiration risk Has persistent dysphagia on multiple evaluation by speech therapy. Although able to swallow pills safely. Patient had recommended videofluoroscopy swallow study and MBS which will be done on Saturday. Attempt for NG tube placement failed today as patient uncooperative. * Keep NPO until mental status improves. * Antibiotic coverage adequate for aspiration. * Continue D5W * Pending MBS on Saturday # Severe Sepsis without shock (resolved) 89-year-old male presenting with severe sepsis secondary to Suspected necrotizing soft tissue infection (possible necrotizing fasciitis vs extensive necrotic cellulitis) involving the left upper thigh/buttock (25?15 cm necrotic plaque) and medial right thigh necrotic lesions Associated with altered mental status, mottled cool skin, lactic acidosis (5.6 - > 4.3), WBC 18.6, and acute kidney injury. Patient is only responsive to painful stimuli, indicating sepsis-associated encephalopathy?. Skin findings are extensive and highly concerning for a rapidly progressive deep soft tissue infection. SOFA score: 9 (Resp 2, Liver 1, [employer]OP[employer] 4, Renal 1, CV 1). LRINEC score: 4 Low risk, but not no risk. 05/26: Sepsis with organ dysfunction (AMS, JOAN, lactate fluctuations). Sources: necrotic soft tissue infection + pneumonia + COVID. WBC improving. Lactic acid overall trending down but fluctuating slightly. 05/27: Patient's mentation improved, white blood cell improving, lactic acid resolved. 05/28: WBC improving (8.2), lactate trending downward (2.1), mentation improving, verbal today. Plan: * DC Vancomycin + Zosyn 3.375 Q8h (05/24-05/30) * Maintain MAP >65 * Strict I/Os * Blood cultures ?2 negarive * Daily CBC, CMP, coagulation studies. * Continuous monitoring for progression of sepsis, worsening perfusion, or mental status deterioration. # Soft Tissue Infection, improving Large necrotic plaque (25?15 cm) on left thigh/buttock and multiple right thigh necrotic lesions, mottled skin, severe systemic toxicity No current concern for Necrotizing fascitis No abscess or osteomyelitis on CT abdomen/pelvis, but CT cannot rule out nec fasc. If clinically worsens will reevaluate and consider consult surge[facility] 05/27: Wound care team spoke to me and stated wound is much improved and on admission no clinical suspicion for debridement. Plan: * Wound care following. * Daily wound checks # Left Lower Lobe Pneumonia, improving CT abdomen/pelvis shows significant left-base pneumonia, likely contributing to sepsis. Procalcitonin 0.56 supports bacterial infection. Improving pneumonia, stable on 4 L nasal cannula. Plan: * DC Zosyn 05/24-05/30 * Repeat CXR in 24 hrs or earlier if clinical decline. * Evaluate for possible aspiration (see separate problem below). # COVID-19 Infection Plan: * Supportive care. * Monitor for worsening hypoxia. * Continue isolation precautions. # Atrial Fibrillation with RVR Newly diagnosed overnight was started on amio and heparin drip, transition to IV as patient failed swallow study. Transition back to oral crushed with pur?ed diet, approved by speech therapy. No liquids. Plan: * Continue amiodarone 200 mg PO. * Continue Eliquis as above. * Telemetry monitoring. * Repeat EKG as needed. # Sepsis-Associated Encephalopathy Profound AMS; only responsive to painful stimuli on presentation, when seen patient he responded to verbal after waking patient up physically No acute intracranial hemorrhage or stroke on CT head. Likely due to sepsis, metabolic derangements, and hypoperfusion. Improvement significantly since past few days conversating now. Plan: * Serial neuro exams. * Avoid sedating or neurotoxic medications. * Repeat CT if AMS does not improve with sepsis treatment. # Acute Kidney Injury, resolved Cr 2.1, GFR 30, BUN 72. Baseline unknown. Likely pre-renal from sepsis, hypoperfusion, and dehydration. This monring Cr 1.2 Plan: * Continue IV fluid resuscitation. * Trend BMP daily. * Will consider consult nephrology if worsening or oliguria develops. * Adjust all renally cleared medications. # Cirrhosis Pattern (suspected based on CT) CT abdomen shows cirrhosis pattern Ammonia mildly elevated at 49; could contribute to encephalopathy but cannot diagnose without clinical history. Plan: * Trend liver function tests. * Consider lactulose after sepsis and metabolic causes addressed. * GI consult if clinical suspicion rises. # Lactic Acidosis, resolved Lactate 5.6 -> 4.3->2.7->3.9, improving with fluids. Indicative of tissue hypoperfusion from severe sepsis. Lactic acid flucutaing, down and up last is 3.8 from 2.1 this morning 12/: Lactate this morning 1.8. Plan: * Continue resuscitation. * Stop trend. * Treat underlying infection sources. # Electrolyte Abnormalities, improving # Mild hypernatremia #Hypokalemia #Hyperchloremia #Hypomagnesemia #Hypophosphatemia Sodium 147, potassium 3.0, chloride 112, magnesium 1.7. Phosphate 2.2 Plan: * Monitor electrolytes daily. * Continue D5W. * Repleted potassium and phosphate. * Replace as needed. # NSTEMI type II (resolved) Troponin 0.145 in setting of systemic illness No evidence of ACS on imaging/initial evaluation. Last troponin 0.134 downtrending Plan: * Stopped trending. * Tele monitoring. # Malnutrition Poor intake, cachectic appearance, failed swallow study. Speech therapy following will reassess tomorrow, stated patient has improved now tolerating pur?es but still n.p.o. except for meds. Plan: * Continue NPO until swallow study completed. * Nutrition consult, following. * Consider NG tube if prolonged NPO status. Health Maintenance: Disposition: Admit to telemetry for monitoring Feeding: NPO except meds with pur?ed not water. Thromboprophylaxis: eliquis 10 mg bid (05/30-06/05) then switch to 5 BID on 06/06 GI Prophylaxis: IV Protonix. Code Status: Full code; reassess if prognosis changes. Antibiotic: DC Vanc and zosyn [05/24-05/30] ----- Plan discussed with attending physician Dr. Nagi Meredith MD PGY-1 Internal Medicine
[2025-05-30] MEDS: APIXABAN 2.5 MG TABLET 10 MG PO (20:33)
--- NOTE | 2025-05-30 23:42 | ESCONSULT_ITS ---
RE: DAHLIA SANCHEZ : 1935 DATE OF CONSULTATION: 05/30/2025 REASON FOR CONSULTATION: Evaluation of the patient for deep vein thrombosis of the left lower extremity, extensive DVT. CHIEF COMPLAINT: General weakness. HISTORY OF PRESENT ILLNESS: The patient is an 89-year-old elderly female who was brought to the hospital for altered mental status. Patient apparently was found laying on the floor covered with feces, unresponsive, lethargic. Did not offer much history. Even now unable to give any history. Patient has dementia. Patient was admitted with acute metabolic encephalopathy and initial diagnosis of sepsis. Patient was given IV fluids. Lactic acid was elevated slightly. Patient was given 2 liters of IV fluid, some improvement. Patient's detailed history is not available, but the patient has left lower extremity edema and is found to have extensive deep vein thrombosis as described by the radiology report. Patient is not having any cardiac symptoms, acute distress, or shortness of breath. PAST MEDICAL HISTORY: Not available. Possible history of atrial fibrillation on amiodarone 200 mg twice daily and apixaban. SOCIAL HISTORY: Unknown. REVIEW OF SYSTEMS: Unobtainable. PHYSICAL EXAMINATION: GENERAL: Acutely and chronically ill male who appears to respond to verbal stimuli, but is not able to communicate much. Acutely and chronically ill, alert, awake, in no acute distress. VITAL SIGNS: Blood pressure 110/70, pulse rate is 100, respirations 36, temperature normal. NECK: Supple. No JVD. LUNGS: Decreased breath sounds. HEART: S1 and S2, irregular atrial fibrillation. ABDOMEN: Thin, soft. EXTREMITIES: Left lower extremity is clearly swollen compared to the right lower extremity, but no significant Phlegmasia cerulea dolens or any significant tight swelling. Chest x-ray showed evidence of a normal-sized heart, some pulmonary congestion. Laboratory data showed white count was normal, hemoglobin 10.4, creatinine 1.2. IMPRESSION: 1. _ Acute deep vein thrombosis, left lower extremity, while the patient is on a low dose of Eliquis. 2. Chronic atrial fibrillation. 3. Altered mental status. 4. Sepsis. 5. Hiatal hernia. RECOMMENDATIONS: I would recommend continuing medical management. No need for the thrombectomy. The patient does have atrial fibrillation. Recommend apixaban 10 mg b.i.d. for 7 days, subsequently 5 mg b.i.d. because of deep vein thrombosis. No clinical indication for thrombectomy. Agree with the rest of medical management. Patient has been tested COVID positive and isolation as well. We would like to thank you for referring this patient for cardiovascular evaluation. We will be glad to follow the patient with you. DT: 22:40:58 TT: 23:40:00 Ref: [id number] - TID: [id number] MTDD
[2025-05-31] VITALS (9 sets, daily range): BP systolic 107–125; BP diastolic 47–62; PULSE 63–80; RESP 16–26; TEMP 36.1–37.1; O2SAT 92–98; BMI 20.8
[2025-05-31] MEDS: DEXTROSE 5%-WATER 1,000 ML 75 ML IV ×2 (00:07→14:29)
[2025-05-31] MEDS: ALBUTEROL/IPRATROPIUM (Duoneb) RT SOL 3 ML NEBU INH (00:41)
[2025-05-31 06:40] LABS: Basophils # (Auto) 0.0 Thou/mm3 (0.0-0.2); Basophils % (Auto) 1 % (0-2.5); Eosinophils # (Auto) 0.1 Thou/mm3 (0.0-0.5); Eosinophils % (Auto) 1 % (0-10); Hematocrit 31.8 % (41.0-53.0); Hemoglobin 10.1 g/dL (13.5-16.0); Immature Granulocytes Auto 0.12 Thou/mm3 (0.00-0.00); Lymphocytes # (Auto) 1.8 Thou/mm3 (1.0-4.8); Lymphocytes % (Auto) 20 % (10-50); Mean Corpuscular HGB Conc 31.8 g/dl (31.0-37.0); Mean Corpuscular Hemoglobin 30.0 pg (25.0-35.0); Mean Corpuscular Volume 94 fL (80-100); Monocytes # (Auto) 1.0 Thou/mm3 (0.0-0.8); Monocytes % (Auto) 12 % (0-12); Neutrophils # (Auto) 5.6 Thou/mm3 (1.8-7.7); Neutrophils % (Auto) 65 % (37-80); Nucleated Red Blood Cell # 0.02 Thou/mm3 (0.00-0.00); Nucleated Red Blood Cell % 0 /100 WBC (0); Platelet Count 231 Thou/mm3 (140-440); RDW Standard Deviation 46.9 fL (35.1-43.9); Red Blood Count 3.37 Miln/mm3 (4.50-5.90); White Blood Count 8.7 Thou/mm3 (3.8-10.6)
[2025-05-31 07:15] LABS: Alanine Aminotransferase 33 U/L (10-49); Albumin, Serum 2.7 gm/dL (3.4-4.8); Albumin/Globulin Ratio 0.9 (1.2-2.2); Alkaline Phosphatase 64 U/L (46-116); Anion Gap 11 (7-16); Aspartate Amino Transferase 54 U/L (0-34); BUN/Creatinine Ratio 5 Ratio (12-20); Bilirubin,Total 0.7 mg/dL (0.3-1.2); Blood Urea Nitrogen < 5 mg/dL (9-23); Calcium 7.5 mg/dL (8.3-10.6); Calcium (Corrected) 8.5 mg/dL (8.5-10.1); Carbon Dioxide 25.3 mMol/L (20.0-31.0); Chloride 112 mMol/L (98-107); Creatinine (Component) 1.1 mg/dL (0.6-1.3); Estimated Creatinine Clearance 41.2 mL/min (>60); Globulin 2.9 gm/dL (2.3-3.5); Glucose 111 mg/dL (74-106); Osmolality,Calculated 292 (275-295); Potassium 3.5 mMol/L (3.4-5.1); Sodium 148 mMol/L (136-145); Total Protein 5.6 gm/dL (5.7-8.2); eGFR > 60 See Note
[2025-05-31] MEDS: SILVER SULFADIAZINE CR 1% 400G 400 GM JAR TOP ×2 (09:37→20:29)
[2025-05-31] MEDS: THIAMINE INJ 100 MG/ML VIAL 2 ML IVP (09:37)
--- NOTE | 2025-05-31 09:52 | PC.NURSE ---
Patient refused to swallow PO meds. Dr. Moscoso made aware.
--- NOTE | 2025-05-31 12:02 | PCS.ST ---
Pt is refusing modified barium swallow today. Multiple attempts to encourage importance of the test for safe eating/drinking. Pt continued to deny procedure. Medical team aware.
--- NOTE | 2025-05-31 13:48 | ESPR_ITS ---
<Statement entered by Selwyn Lazar MD - 06/12/25 09:23> I reviewed above note and agree with findings and plans. I have also personally examined the patient with medicine team and went over assessment and plan with medical team including technical internship and resident physician. <Statement entered by Ariel Reza MD - 05/31/25 17:50> Patient was examined and case was reviewed with team including attending physician. Note reviewed, I agree with most of its contents and agree with the patient's care as documented by Dr. Meredith Patient seen today at the bedside found awake, alert, states he feels ok. He denies any chest pain, shortness of breath, or any complaints at this time. Vitals and labs reviewed currently on 2L O2 saturating well with adequate saturations. He has failed bedside swallow evaluation at least 3x. Speech therapy evaluated the patient and determined he was able to swallow PO meds, however today patient is not being compliant with speech therapist and declined modified barium swallow. At this point we spoke to the daughter with regards to how to proceed with patients care as he is consistently refusing any type of intervention. She stated that he behaves like this at home as well and would like to change his CODE STATUS to DNR/DNI and requested Hospice referall. In terms of his nutrition and caloric requirements patient has been on IV Hydration but at this time will consult Gastroenterology for PEG tube placement as per families wishes. As far as patients cellulitis patient has improved significantly on IV antibiotics for which he completed treatment and IV Abx was discontinued. Case discussed with my attending Dr. Nagi Reza MD PGY-2 Documentation for date of: 05/31/25 Subjective Subjective Interval history: No acute overnight events. Patient more awake, interactive, feels ?okay? today. Denies shortness of breath, cough, chest pain, leg pain, abdominal pain, or bleeding. Reports no new complaints. Soft tissue infection improving significantly, left thigh wound almost resolved with no erythema. Breathing well on 2 L nasal cannula, saturating 96%. Barium swallow scheduled for today. No bleeding on therapeutic Eliquis. After seeing the patient got a call from nurse patient is refusing all his p.o. meds, speech evaluation states patient did not want to participate and did not want to do barium swallow study. Will need to call daughter and discuss goals of care, option for PEG tube placement. Exam Vital Signs Temp Pulse Resp BP Pulse Ox O2 Del Method O2 Flow Rate 97.4 F 65 20 118/62 95 Nasal Cannula 2 05/31/25 08:00 05/31/25 08:00 05/31/25 08:00 05/31/25 08:00 05/31/25 08:00 05/31/25 08:00 05/31/25 08:00 Narrative Exam General: More awake, alert, conversant, chronically ill-appearing but comfortable. HEENT: Mucous membranes moist. Lungs: Clear to auscultation; no rhonchi today; nonlabored breathing. Heart: Irregularly irregular rhythm, rate controlled; no murmurs. Abdomen: Soft, nontender, nondistended. Extremities/Skin: * Left thigh/buttock necrotic wound significantly improved, minimal residual eschar, no erythema or drainage. * Left leg DVT: No pain, swelling improved, no phlegmasia. Neuro: Alert, answers questions appropriately, oriented ?2; improved mentation. Lines/Drips: 2 L nasal cannula; all meds PO crushed in pur?e. Objective Labs 05/31/25 06:00 05/31/25 06:00 Labs: Laboratory Results - last 24 hr 05/31/25 06:00 WBC 8.7 RBC 3.37 L Hgb 10.1 L Hct 31.8 L MCV 94 MCH 30.0 MCHC 31.8 RDW Std Deviation 46.9 H Plt Count 231 Neut % (Auto) 65 Lymph % (Auto) 20 [place] % (Auto) 12 Eos % (Auto) 1 Baso % (Auto) 1 Neut # (Auto) 5.6 Lymph # (Auto) 1.8 [place] # (Auto) 1.0 H Eos # (Auto) 0.1 Baso # (Auto) 0.0 Immature Gran # (Auto) 0.12 H Absolute Nucleated RBC 0.02 H Immature Gran % 1 H Nucleated RBC % 0 Sodium 148 H Potassium 3.5 D Chloride 112 H Carbon Dioxide 25.3 Anion Gap 11 BUN < 5 L Creatinine 1.1 Estim Creat Clear Calc 41.2 L eGFR > 60 BUN/Creatinine Ratio 5 L Glucose 111 H Calculated Osmolality 292 Calcium 7.5 L Corrected Calcium 8.5 Total Bilirubin 0.7 AST 54 H ALT 33 Alkaline Phosphatase 64 Total Protein 5.6 L Albumin 2.7 L Globulin 2.9 Albumin/Globulin Ratio 0.9 L ABG Interpretation ABG results: 05/24/25 13:36 ABG pH 7.39 ABG pCO2 25 L ABG pO2 153 H ABG HCO3 15 L ABG O2 Saturation 99 H ABG Base Excess -8 L Quality Measures Quality Measures sepsis Current suspected stage: sepsis (resolved) Possible source: skin/soft tissue Blood cultures ordered: completed in ED Antibiotic ordered: Yes Advance care planning discussed with:: patient Assessment & Plan Assessment Current Active Medications: Generic Name Dose Route Start Last Admin Trade Name Freq PRN Reason Stop Dose Admin Acetaminophen 650 mg 05/24/25 18:27 05/25/25 16:19 Acetaminophen Supp 650 Mg Supp NV 06/23/25 18:26 650 mg Q6HR PRN Administration Fever > 100.4 or pain 1-5 Albuterol/Ipratropium 3 ml 05/25/25 18:48 Albuterol/Ipratropium (Duoneb) Rt Reyna 3 Ml Nebu INH 06/24/25 18:47 Q2HR PRN SHORTNESS OF BREATH OR WHEEZE Albuterol/Ipratropium 3 ml 05/25/25 19:00 05/31/25 13:43 Albuterol/Ipratropium (Duoneb) Rt Reyna 3 Ml Nebu INH 06/24/25 18:59 Not Given Q6HRRT ODILIA Amiodarone HCl 200 mg 05/28/25 21:00 05/31/25 09:43 Amiodarone Hcl 200 Mg Tablet PO 06/27/25 20:59 Not Given BID ODILIA Apixaban 10 mg 05/30/25 21:00 05/31/25 09:43 Apixaban 2.5 Mg Tablet PO 06/06/25 09:01 Not Given BID ODILIA Calcium Carbonate 600 mg 05/26/25 09:00 05/31/25 09:43 Calcium Carbonate 600 Mg Tablet PO 06/25/25 08:59 Not Given QDAY ODILIA Dextrose 1,000 mls @ 75 mls/hr 05/29/25 07:30 05/31/25 00:07 D5w IV 06/28/25 07:29 75 mls/hr .[id number] ODILIA Administration Methylprednisolone Sodium Succinate 60 mg 05/26/25 21:00 Methylprednisolone Sod Succ 40 Mg/Ml Vial IV 06/02/25 20:59 On Hold: 12/03/25 21:00 Q12HR [facility] Multivitamins 1 tab 05/28/25 12:45 05/31/25 09:43 Multivitamins Tablet PO 06/27/25 12:44 Not Given QDAY ODILIA Ondansetron HCl 4 mg 05/24/25 18:27 Ondansetron Inj 2 Mg/Ml Inj 2 Ml IVP 06/23/25 18:26 Q6H PRN NAUSEA OR VOMITING Protocol Pantoprazole Sodium 40 mg 05/24/25 18:45 05/31/25 09:35 Pantoprazole Inj 40 Mg Vial IVP 06/23/25 18:44 40 mg QDAY ODILIA Administration Silver Sulfadiazine 0 gm 05/27/25 21:00 05/31/25 09:37 Silver Sulfadiazine Cr 1% 400g 400 Gm Jar TOP 06/03/25 20:59 1 appln BID ODILIA Administration Thiamine HCl 100 mg 05/31/25 09:30 05/31/25 09:37 Thiamine Inj 100 Mg/Ml Vial 2 Ml IVP 06/30/25 09:29 100 mg QDAY ODILIA Administration Plan 89M with severe sepsis (now resolved) secondary to soft tissue infection + LLL pneumonia, COVID-positive, previously with A-fib w/ RVR, JOAN, hypernatremia, and sepsis-associated encephalopathy, now on 4 L NC, mentation greatly improved, tolerating pur?es, but found to have extensive acute occlusive DVT of entire L lower extremity, currently on Eliquis 2.5 mg BID requiring escalation to full DVT treatment dosing. # Acute Extensive Left Lower Extremity DVT Extensive acute occlusive thrombus involving entire deep venous system of the LLE confirmed by Doppler yesterday. Patient was on Eliquis 2.5 mg BID, which is not therapeutic for acute DVT. No bleeding, Hgb stable. Speech therapy allows crushed pills in pur?e -> safe for DOAC administration. Plan: * Escalate to full therapeutic DVT dosing of Eliquis: 10 mg BID x 7 days, then 5 mg BID. * Monitor for any bleeding (stool, urine, gums). * Daily CBC. * If unable to tolerate pur?e in subsequent days -> switch to heparin drip temporarily. #Pharyngeal dysphagia #Aspiration risk Has persistent dysphagia on multiple evaluation by speech therapy. Although able to swallow pills safely. Patient had recommended videofluoroscopy swallow study and MBS which will be done on Saturday. Attempt for NG tube placement failed today as patient uncooperative. Patient refusing all oral medications, refusing barium swallow study. Will speak to daughter about possible PEG tube placement or goals of care. * Keep NPO until mental status improves. * Antibiotic coverage adequate for aspiration. * Continue D5W * Pending MBS on Saturday # Severe Sepsis without shock (resolved) 89-year-old male presenting with severe sepsis secondary to Suspected necrotizing soft tissue infection (possible necrotizing fasciitis vs extensive necrotic cellulitis) involving the left upper thigh/buttock (25?15 cm necrotic plaque) and medial right thigh necrotic lesions Associated with altered mental status, mottled cool skin, lactic acidosis (5.6 - > 4.3), WBC 18.6, and acute kidney injury. Patient is only responsive to painful stimuli, indicating sepsis-associated encephalopathy?. Skin findings are extensive and highly concerning for a rapidly progressive deep soft tissue infection. SOFA score: 9 (Resp 2, Liver 1, F[employer]ING [employer] 4, Renal 1, CV 1). LRINEC score: 4 Low risk, but not no risk. 05/26: Sepsis with organ dysfunction (AMS, JOAN, lactate fluctuations). Sources: necrotic soft tissue infection + pneumonia + COVID. WBC improving. Lactic acid overall trending down but fluctuating slightly. 05/27: Patient's mentation improved, white blood cell improving, lactic acid resolved. 05/28: WBC improving (8.2), lactate trending downward (2.1), mentation improving, verbal today. Plan: * DC Vancomycin + Zosyn 3.375 Q8h (05/24-05/30) * Maintain MAP >65 * Strict I/Os * Blood cultures ?2 negarive * Daily CBC, CMP, coagulation studies. * Continuous monitoring for progression of sepsis, worsening perfusion, or mental status deterioration. # Soft Tissue Infection, improving Large necrotic plaque (25?15 cm) on left thigh/buttock and multiple right thigh necrotic lesions, mottled skin, severe systemic toxicity No current concern for Necrotizing fascitis No abscess or osteomyelitis on CT abdomen/pelvis, but CT cannot rule out nec fasc. If clinically worsens will reevaluate and consider consult [facility] 05/27: Wound care team spoke to me and stated wound is much improved and on admission no clinical suspicion for debridement. 05/31: Large left thigh/buttock plaque nearly resolved. No erythema, no drainage, no signs of nec fasc. Plan: * Wound care following. * Local wound care only now. * Continue daily skin checks. * No further antibiotics needed unless clinical change occurs. # Left Lower Lobe Pneumonia, improving CT abdomen/pelvis shows significant left-base pneumonia, likely contributing to sepsis. Procalcitonin 0.56 supports bacterial infection. Improving pneumonia, stable on 4 L nasal cannula. Plan: * DC Zosyn 05/24-05/30 * Repeat CXR in 24 hrs or earlier if clinical decline. * Evaluate for possible aspiration (see separate problem below). # COVID-19 Infection Plan: * Supportive care. * Monitor for worsening hypoxia. * Continue isolation precautions. # Atrial Fibrillation with RVR Newly diagnosed overnight was started on amio and heparin drip, transition to IV as patient failed swallow study. Transition back to oral crushed with pur?ed diet, approved by speech therapy. No liquids. Plan: * Continue amiodarone 200 mg PO. * Continue Eliquis as above. * Telemetry monitoring. * Repeat EKG as needed. # Sepsis-Associated Encephalopathy Profound AMS; only responsive to painful stimuli on presentation, when seen patient he responded to verbal after waking patient up physically No acute intracranial hemorrhage or stroke on CT head. Likely due to sepsis, metabolic derangements, and hypoperfusion. Improvement significantly since past few days conversating now. Plan: * Serial neuro exams. * Avoid sedating or neurotoxic medications. * Repeat CT if AMS does not improve with sepsis treatment. # Acute Kidney Injury, resolved Cr 2.1, GFR 30, BUN 72. Baseline unknown. Likely pre-renal from sepsis, hypoperfusion, and dehydration. This monring Cr 1.1 Plan: * Continue IV fluid resuscitation. * Trend BMP daily. * Will consider consult nephrology if worsening or oliguria develops. * Adjust all renally cleared medications. # Cirrhosis Pattern (suspected based on CT) CT abdomen shows cirrhosis pattern Ammonia mildly elevated at 49; could contribute to encephalopathy but cannot diagnose without clinical history. Plan: * Trend liver function tests. * Consider lactulose after sepsis and metabolic causes addressed. * GI consult if clinical suspicion rises. # Lactic Acidosis, resolved Lactate 5.6 -> 4.3->2.7->3.9, improving with fluids. Indicative of tissue hypoperfusion from severe sepsis. Lactic acid flucutaing, down and up last is 3.8 from 2.1 this morning 12/: Lactate this morning 1.8. Plan: * Continue resuscitation. * Stop trend. * Treat underlying infection sources. # Electrolyte Abnormalities, improving # Mild hypernatremia #Hypokalemia #Hyperchloremia #Hypomagnesemia #Hypophosphatemia Sodium 148, potassium 3.5, chloride 112, magnesium 1.7. Plan: * Monitor electrolytes daily. * Continue D5W. * Repleted potassium and phosphate. * Replace as needed. # NSTEMI type II (resolved) Troponin 0.145 in setting of systemic illness No evidence of ACS on imaging/initial evaluation. Last troponin 0.134 downtrending Plan: * Stopped trending. * Tele monitoring. # Malnutrition Poor intake, cachectic appearance, failed swallow study. Speech therapy following will reassess tomorrow, stated patient has improved now tolerating pur?es but still n.p.o. except for meds. Plan: * Continue NPO until swallow study completed. * Nutrition consult, following. * Consider NG tube if prolonged NPO status. Health Maintenance: Disposition: Admit to telemetry for monitoring Feeding: NPO except meds with pur?ed not water. Thromboprophylaxis: eliquis 10 mg bid (05/30-06/05) then switch to 5 BID on 06/06 GI Prophylaxis: IV Protonix. Code Status: Full code; reassess if prognosis changes. Antibiotic: DC Vanc and zosyn [05/24-05/30] ----- Plan discussed with attending physician Dr. Lazar and senior resident Dr. Shamar Meredith MD PGY-1 Internal Medicine
--- NOTE | 2025-05-31 14:47 | EVENTNT_ITS ---
<Statement entered by Selwyn Lazar MD - 06/17/25 08:24> I reviewed above note and agree with findings and plans. I have also personally examined the patient with medicine team and went over assessment and plan with medical team including business management intern and resident physician. Documentation for date of: 05/31/25 Event Note Event Note: Around 2:30pm 05/31/2025. Spoke to family and primary decision maker Rosalinda who decided due to the patients reluctance to continue with medical management she would like to proceed with other options with regards to the patients care. The primary decision maker has decided the patientss CODE STATUS to be changed to DNR. She also requested to be put in contact with Hospice agency in regards to continued care in a facility with hospice care. Hospice referolive oreilly and Larry from social studies department chair contacted who will speak to the family. Case discussed with my attending Dr. Nagi Reza MD PGY-2
--- NOTE | 2025-05-31 15:06 | PC.SS ---
Rounding Note: Patient failed swallow evaluation. Resident team to meet with patient's daughter and spouse to discuss feeding options: NG tube vs PEG tube.
--- NOTE | 2025-05-31 16:00 | PC.SS ---
Family conducted with patient?s spouse, Estrella Jsoeph and patient?s daughter, Rosalinda Lujan .? Residential team discussed with the family patient?s inability to participate in a swallow evaluation.? Due to the patient?s nourishment needs not being met discussed option of PEG tube placement.? Family informed that GI specialist would have to confirm that patient is a candidate for procedure prior to placement PEG tube.? Residential team reviewed with family risks to include aspiration and infection.? Patient?s spouse, Estrella Joseph, consented to assessing the patient for PEG tube placement.?
--- NOTE | 2025-05-31 16:10 | EVENTNT_ITS ---
<Statement entered by Selwyn Lazar MD - 06/17/25 08:24> I reviewed above note and agree with findings and plans. I have also personally examined the patient with medicine team and went over assessment and plan with medical team including internal controls consultant and resident physician. Documentation for date of: 05/31/25 Event Note Event Note: Event Note ? Family Discussion (Goals of Care / PEG Tube Planning) Participants: Patient?s (primary decision-maker), daughter (fidelina), social service (Larry), medical team (Dr Meredith and Dr Roberts) Purpose: Discussion regarding nutrition options, PEG tube placement, goals of care, and potential transition to care home or comfort measures. Context: Patient lacks decision-making capacity due to underlying dementia and acute metabolic encephalopathy. Family requested further clarification regarding feeding options, PEG tube eligibility, next steps in care, and the difference between comfort care, hospice, and care home. Discussion Summary: Family was updated that the patient continues to fail swallow evaluations and is unable to take adequate nutrition safely by mouth. Explained that the patient is now at the point where artificial long-term nutrition is needed if the goal is continued restorative/curative care. Discussed that the patient appears malnourished and would likely benefit from a PEG if the goal is to pursue restorative medical treatment. Risks of PEG placement were explained, including: ? Infection ? Aspiration risk (reflux of feedings into lungs) ? Potential for patient to pull the tube ? Need for care home oversight Family asked whether PEG can be done under comfort care or hospice. Explained: * Comfort care: Focuses only on comfort, not restorative interventions. PEG is generally not placed under comfort care. * Hospice: Similar goals to comfort care, but with additional nursing support. * Assisted Facility: PEG tube placement is commonly supported; patient could receive rehab and long-term care if eligible for [facility]. Family understands there is no guarantee PEG can be placed; final decision made by GI after evaluating anatomy, aspiration risk, and procedural safety. If PEG is placed and patient improves, the plan would be: * PEG placement * Transfer to Assisted Facility for rehabilitation and long-term placement * Reapply for [facility] for long-term coverage If PEG is not feasible or if patient clinically declines, family understands they may opt to transition to comfort care/hospice, focusing solely on comfort and symptom control. Family verbalized understanding of all options, risks, and benefits. (legal surrogate) agrees to proceed with: Consult GI (Dr. Guerrero) for PEG evaluation -> Plan for Assisted Facility placement after PEG ->Reapply for [facility] through financial counseling -> Revisit goals of care depending on PEG success and clinical course Family expressed appreciation and had no further questions at this time. ----- Amanda Meredith MD PGY-1 Internal Medicine
--- NOTE | 2025-05-31 16:55 | ESCONSULT_ITS ---
HPI Data of Consult Requesting Physician: Selwyn Lazar MD Admitting Provider: Ronaldo Adame MD Attending Provider: Selwyn Lazar MD Primary Care Provider: Physician No Primary/Family Consult Narrative History of present illness: 89-year-old male admitted for severe sepsis (now resolved) secondary to soft tissue infection and left lower lobe pneumonia, with COVID-19. He has a history of atrial fibrillation with rapid ventricular response, acute kidney injury, hypernatremia, and sepsis-associated encephalopathy. His mentation has significantly improved, and he is tolerating pureed foods. However, he has developed extensive acute occlusive DVT in the entire left lower extremity, currently managed on Eliquis 2.5 mg BID. Given his malnutrition and the need for long-term nutritional support to facilitate restorative care, a PEG tube was recommended by the hospitalist team for ongoing nutritional management. This has been discussed with the patient and family, and they are aware of the need for artificial nutrition moving forward. Patient has failed at least 3 bedside swallow eval. GI consulted for placement of PEG tube. cc:: cc: Selwyn Lazar MD Review of Systems Review of Systems Systems Reviewed: All systems reviewed, normal except as documented Exam Vital Signs Temp Pulse Resp BP Pulse Ox O2 Del Method O2 Flow Rate 98.8 F 68 18 111/59 L 94 L Nasal Cannula 2 05/31/25 12:00 05/31/25 12:00 05/31/25 12:00 05/31/25 12:00 05/31/25 12:00 05/31/25 12:00 05/31/25 12:00 Narrative Exam General: awake, alert, conversant, chronically ill-appearing but comfortable. HEENT: Mucous membranes moist. Lungs: Clear to auscultation; nonlabored breathing. Heart: Irregularly irregular rhythm, rate controlled; no murmurs. Abdomen: Soft, nontender, nondistended. Extremities/Skin: Left thigh/buttock necrotic wound significantly improved, minimal residual eschar, no erythema or drainage. Left leg DVT: No pain, swelling improved, no phlegmasia. Neuro: Alert, answers questions appropriately, oriented ?2 Results Labs 05/31/25 06:00 05/31/25 06:00 Labs: Short CBC 05/31/25 Range/Units 06:00 WBC 8.7 (3.8-10.6) Thou/mm3 Hgb 10.1 L (13.5-16.0) g/dL Hct 31.8 L (41.0-53.0) % Plt Count 231 (140-440) Thou/mm3 BMP 05/31/25 06:00 Sodium 148 H Potassium 3.5 D Chloride 112 H Carbon Dioxide 25.3 BUN < 5 L Creatinine 1.1 Glucose 111 H Calcium 7.5 L Liver Function 05/31/25 Range/Units 06:00 Total Bilirubin 0.7 (0.3-1.2) mg/dL AST 54 H (0-34) U/L ALT 33 (10-49) U/L Alkaline Phosphatase 64 (46-116) U/L Albumin 2.7 L (3.4-4.8) gm/dL ABG Interpretation ABG results: 05/24/25 13:36 ABG pH 7.39 ABG pCO2 25 L ABG pO2 153 H ABG HCO3 15 L ABG O2 Saturation 99 H ABG Base Excess -8 L Quality Measures Quality Measures sepsis Current suspected stage: sepsis Possible source: skin/soft tissue Blood cultures ordered: completed in ED Antibiotic ordered: Yes Advance care planning discussed with:: spouse Medications Home Medications and Allergies Home Medications ?Medication ?Instructions ?Recorded ?Confirmed ?Type ascorbic acid (vitamin C) 500 mg 500 mg PO QDAY SUPPLE MENT #0 tabs 07/11/14 05/24/25 History tablet (Vitamin C) Allergies Allergy/AdvReac Type Severity Reaction Status Date / Time codeine Allergy Severe Nausea/Vomi Verified 08/30/14 14:39 tiing promethazine Allergy Mild Verified 09/01/14 23:18 Visit Medications Acetaminophen (Acetaminophen Supp 650 Mg Supp) 650 mg AR Q6HR PRN PRN Reason: Fever > 100.4 or pain 1-5 Stop: 06/23/25 18:26 Last Admin: 05/25/25 16:19 Dose: 650 mg Albuterol/Ipratropium (Albuterol/Ipratropium (Duoneb) Rt Reyna 3 Ml Nebu) 3 ml INH Q2HR PRN PRN Reason: SHORTNESS OF BREATH OR WHEEZE Stop: 06/24/25 18:47 Albuterol/Ipratropium (Albuterol/Ipratropium (Duoneb) Rt Reyna 3 Ml Nebu) 3 ml INH Q6HRRT [facility] Stop: 06/24/25 18:59 Last Admin: 05/31/25 13:43 Dose: Not Given Amiodarone HCl (Amiodarone Hcl 200 Mg Tablet) 200 mg PO BID [facility] Stop: 06/27/25 20:59 Last Admin: 05/31/25 09:43 Dose: Not Given Apixaban (Apixaban 2.5 Mg Tablet) 10 mg PO BID [facility] Stop: 06/06/25 09:01 Last Admin: 05/31/25 09:43 Dose: Not Given Calcium Carbonate (Calcium Carbonate 600 Mg Tablet) 600 mg PO QDAY [facility] Stop: 06/25/25 08:59 Last Admin: 05/31/25 09:43 Dose: Not Given Dextrose (D5w) 1,000 mls @ 75 mls/hr IV .[id number] [facility] Stop: 06/28/25 07:29 Last Admin: 05/31/25 14:29 Dose: 75 mls/hr Methylprednisolone Sodium Succinate (Methylprednisolone Sod Succ 40 Mg/Ml Vial) 60 mg IV Q12HR [facility] On Hold: 05/26/25 21:00 Stop: 06/02/25 20:59 Multivitamins (Multivitamins Tablet) 1 tab PO QDAY [facility] Stop: 06/27/25 12:44 Last Admin: 05/31/25 09:43 Dose: Not Given Ondansetron HCl (Ondansetron Inj 2 Mg/Ml Inj 2 Ml) 4 mg IVP Q6H PRN; Protocol PRN Reason: NAUSEA OR VOMITING Stop: 06/23/25 18:26 Pantoprazole Sodium (Pantoprazole Inj 40 Mg Vial) 40 mg IVP QDAY [facility] Stop: 06/23/25 18:44 Last Admin: 05/31/25 09:35 Dose: 40 mg Silver Sulfadiazine (Silver Sulfadiazine Cr 1% 400g 400 Gm Jar) 0 gm TOP BID [facility] Stop: 06/03/25 20:59 Last Admin: 05/31/25 09:37 Dose: 1 appln Thiamine HCl (Thiamine Inj 100 Mg/Ml Vial 2 Ml) 100 mg IVP QDAY [facility] Stop: 06/30/25 09:29 Last Admin: 05/31/25 09:37 Dose: 100 mg Discontinued Medications Amiodarone HCl (Amiodarone Hcl 200 Mg Tablet) 200 mg PO BID [facility] Stop: 06/25/25 08:59 Last Admin: 05/26/25 10:18 Dose: Not Given Apixaban (Apixaban 2.5 Mg Tablet) 2.5 mg PO BID [facility] Stop: 06/25/25 09:59 Apixaban (Apixaban 2.5 Mg Tablet) 2.5 mg PO BID [facility] Stop: 06/25/25 10:29 Apixaban (Apixaban 2.5 Mg Tablet) 2.5 mg PO BID [facility] Stop: 06/27/25 20:59 Last Admin: 05/30/25 09:38 Dose: 2.5 mg Apixaban (Apixaban 2.5 Mg Tablet) 10 mg PO BID [facility] Stop: 06/20/25 20:59 Apixaban (Apixaban 2.5 Mg Tablet) 7.5 mg PO X1 ONE Stop: 05/30/25 10:12 Enoxaparin Sodium (Enoxaparin Sod Inj 100 Mg/Ml Syringe) 60 mg 1 mg/kg (60 mg) SC BID [facility] Stop: 06/09/25 11:29 Last Admin: 05/26/25 12:29 Dose: 60 mg Enoxaparin Sodium (Enoxaparin Sod Inj 60 Mg/0.6 Ml Syringe) 60 mg SC BID [facility] Stop: 06/09/25 11:29 Last Admin: 05/28/25 09:55 Dose: Not Given Enoxaparin Sodium (Enoxaparin Sod Inj 100 Mg/Ml Syringe) 60 mg 1 mg/kg (60 mg) SC BID [facility] Stop: 06/13/25 10:44 Last Admin: 05/30/25 11:28 Dose: 60 mg Heparin Sodium (Porcine) (Heparin Sod Inj 5000 Unit/Ml Vial) 5,000 unit SC Q12HR [facility] Stop: 06/07/25 20:59 Last Admin: 05/24/25 22:19 Dose: 5,000 unit Heparin Sodium (Porcine) (Heparin Sod Inj 5000 Unit/Ml Vial) 4,700 unit 80 unit/kg (4700 unit) IV X1 ONE; Protocol Stop: 05/25/25 05:19 Last Admin: 05/25/25 06:39 Dose: 4,700 unit Sodium Chloride (Ns) 1,000 mls @ 999 mls/hr IV .Q1H1M ONE Stop: 05/24/25 13:41 Last Infusion: 05/24/25 13:58 Dose: Infused Vancomycin/Sodium Chloride (Vancomycin/Ns 1 Gm Ivpb) 200 mls @ 120 mls/hr IV X1 ONE Stop: 05/24/25 15:50 Last Infusion: 05/24/25 17:30 Dose: Infused Piperacillin/Tazobactam/Dextrose (Zosyn) 3.375 gm in 50 mls @ 100 mls/hr IV X1 ONE; Protocol Stop: 05/24/25 14:40 Last Infusion: 05/24/25 15:46 Dose: Infused Acetaminophen (Ofirmev Inj) 1,000 mg in 100 mls @ 250 mls/hr IV X1 ONE Stop: 05/24/25 14:38 Last Infusion: 05/24/25 15:17 Dose: Infused Sodium Chloride (Ns) 1,000 mls @ 999 mls/hr IV .Q1H1M ONE Stop: 05/24/25 15:17 Last Infusion: 05/24/25 15:46 Dose: Infused Piperacillin/Tazobactam/Dextrose (Zosyn) 3.375 gm in 50 mls @ 12.5 mls/hr IV Q8HR [facility]; Protocol Stop: 05/31/25 21:59 Sodium Chloride (Ns) 1,000 mls @ 75 mls/hr IV .[id number] [facility] Stop: 06/23/25 18:29 Last Admin: 05/24/25 19:23 Dose: 75 mls/hr Sodium Chloride (Ns) 1,000 mls @ 100 mls/hr IV .Q10H [facility] Stop: 05/26/25 01:54 Last Admin: 05/24/25 21:23 Dose: 100 mls/hr Piperacillin/Tazobactam/Dextrose (Zosyn) 3.375 gm in 50 mls @ 100 mls/hr IV Q6HR [facility]; Protocol Stop: 06/01/25 00:00 Last Admin: 05/30/25 12:43 Dose: 100 mls/hr Amiodarone HCl/Dextrose (Nexterone Ivpb) 150 mg in 100 mls @ 600 mls/hr IV .Q10M ONE Stop: 05/25/25 04:17 Last Admin: 05/25/25 04:22 Dose: 600 mls/hr Amiodarone HCl/Dextrose (Nexterone Ivpb) 360 mg in 200 mls @ 33.333 mls/hr IV .Q6H ONE Stop: 05/25/25 10:07 Last Infusion: 05/25/25 11:16 Dose: Infused Amiodarone HCl/Dextrose (Nexterone Ivpb) 360 mg in 200 mls @ 16.667 mls/hr IV .Q12H [facility] Stop: 05/26/25 04:07 Last Admin: 05/26/25 00:32 Dose: 16.667 mls/hr Heparin Sodium/Dextrose (Heparin In D5w Ivpb) 25,000 unit in 250 mls @ 10.622 mls/hr IV .[id number] [facility]; Protocol Stop: 06/08/25 05:29 Last Titration: 05/26/25 05:11 Dose: 12 units/kg/hr, 7.081 mls/hr Lactated Ringer's (Lactated Ringers) 1,000 mls @ 999 mls/hr IV .Q1H1M ONE Stop: 05/25/25 08:19 Last Infusion: 05/25/25 09:00 Dose: Infused Vancomycin/Sodium Chloride (Vancomycin/Ns 500 Mg Ivpb) 100 mls @ 120 mls/hr IV QDAY@1000 [facility] Stop: 06/01/25 10:29 Last Admin: 05/26/25 10:23 Dose: 120 mls/hr Sodium Chloride (Ns) 500 mls @ 999 mls/hr IV .Q31M ONE Stop: 05/25/25 14:10 Last Infusion: 05/25/25 14:30 Dose: 0 mls/hr Thiamine HCl 500 mg/ Sodium (Chloride) 105 mls @ 205 mls/hr IV X1 ONE Stop: 05/25/25 14:52 Last Infusion: 05/25/25 17:53 Dose: Infused Dextrose (D5w) 500 mls @ 75 mls/hr IV .Q6H40M [facility] Stop: 06/24/25 14:29 Last Admin: 05/25/25 23:19 Dose: 75 mls/hr Lactated Ringer's (Lactated Ringers) 500 mls @ 999 mls/hr IV .Q31M ONE Stop: 05/25/25 15:40 Last Admin: 05/25/25 16:11 Dose: Not Given Lactated Ringer's (Lactated Ringers) 500 mls @ 999 mls/hr IV .Q31M ONE Stop: 05/25/25 15:40 Last Infusion: 05/25/25 17:52 Dose: Infused Dextrose (D5w) 500 mls @ 150 mls/hr IV .Q3H20M [facility] Stop: 06/25/25 04:59 Last Admin: 05/26/25 12:33 Dose: 150 mls/hr Amiodarone HCl/Dextrose (Nexterone Ivpb) 150 mg in 100 mls @ 200 mls/hr IV QDAY@2100 [facility] Stop: 06/25/25 20:59 Last Admin: 05/27/25 20:35 Dose: 200 mls/hr Dextrose (D5w) 500 mls @ 150 mls/hr IV .Q3H20M [facility] Stop: 06/25/25 04:59 Last Admin: 05/26/25 17:13 Dose: 150 mls/hr Lactated Ringer's (Lactated Ringers) 500 mls @ 999 mls/hr IV .Q31M ONE Stop: 05/26/25 19:46 Last Admin: 05/26/25 21:48 Dose: 999 mls/hr Dextrose (D5w) 500 mls @ 200 mls/hr IV .Q2H30M [facility] Stop: 06/25/25 19:15 Dextrose (D5w) 1,000 mls @ 200 mls/hr IV .Q5H [facility] Stop: 06/25/25 19:50 Last Admin: 05/26/25 23:58 Dose: 200 mls/hr Dextrose (D5w) 1,000 mls @ 100 mls/hr IV .Q10H [facility] Stop: 06/26/25 02:55 Last Admin: 05/27/25 14:33 Dose: 100 mls/hr Magnesium Sulfate (Magnesium Sulfate Ivpb) 4 gm in 50 mls @ 12.5 mls/hr IV X1 ONE Stop: 05/27/25 12:53 Last Infusion: 05/27/25 12:37 Dose: 12.5 mls/hr Potassium Phosphate (Pot Phos 15 Mmol In Ns 250 Ml) 15 mmol in 250 mls @ 62.5 mls/hr IV Q4H [facility] Stop: 05/27/25 12:55 Last Admin: 05/27/25 09:45 Dose: 62.5 mls/hr Vancomycin HCl (Vancomycin/Water 1gm Ivpb) 200 mls @ 120 mls/hr IV QDAY@1000 [facility]; Protocol Stop: 06/03/25 10:29 Last Admin: 05/29/25 10:31 Dose: 120 mls/hr Dextrose/Sodium Chloride (D5-Ns) 1,000 mls @ 100 mls/hr IV .Q10H [facility] Stop: 06/27/25 08:29 Last Admin: 05/29/25 05:30 Dose: 100 mls/hr Potassium Phosphate 22.5 mmol/ (Sodium Chloride) 507.5 mls @ 82.778 mls/hr IV X1 ONE Stop: 05/30/25 13:25 Last Admin: 05/30/25 09:43 Dose: 82.778 mls/hr Vancomycin HCl (Vancomycin/Water 1250 Mg Ivpb) 200 mls @ 120 mls/hr IV QDAY@1000 [facility]; Protocol Stop: 06/03/25 10:29 Vancomycin HCl (Vancomycin/Water 1250 Mg Ivpb) 250 mls @ 125 mls/hr IV QDAY@1000 [facility]; Protocol Stop: 06/03/25 10:29 Pharmacy Consult (Vancomycin Pharmacy To Dose 1 Each Each) 1 each IV QDAY [facility] Stop: 06/23/25 18:29 Last Admin: 05/24/25 18:58 Dose: Not Given Pharmacy Consult (Vancomycin Pharmacy To Dose 1 Each Each) 1 each IV QDAY PRN PRN Reason: CONSULT Stop: 06/23/25 18:29 Potassium Phos/Sodium Phos ([facility] 1 Packet (1.5 Gm)) 1 packet PO X1 ONE Stop: 05/26/25 08:27 Last Admin: 05/26/25 10:08 Dose: 1 packet Silver Sulfadiazine (Silver Sulfadiazine Cr 1% 25 Gm Tube) 0 gm TOP BID [facility] Stop: 06/01/25 20:59 Last Admin: 05/27/25 09:47 Dose: 1 appln Thiamine HCl (Thiamine 100 Mg Tablet) 100 mg PO QDAY [facility] Stop: 06/25/25 08:59 Last Admin: 05/27/25 09:47 Dose: Not Given Thiamine HCl (Thiamine Inj 100 Mg/Ml Vial 2 Ml) 100 mg IVP QDAY [facility] Stop: 06/26/25 13:59 Last Admin: 12/07/25 09:38 Dose: 100 mg Thiamine HCl (Thiamine 100 Mg Tablet) 100 mg PO QDAY [facility]; Protocol Stop: 06/30/25 08:59 Last Admin: 05/31/25 11:40 Dose: Not Given Tramadol HCl (Tramadol Hcl 50 Mg Tablet) 50 mg PO Q6HR PRN PRN Reason: Pain Scale 6-10 Stop: 05/29/25 18:26 Assessment & Plan Plan 89-year-old male admitted for severe sepsis (now resolved) secondary to soft tissue infection + LLL pneumonia, COVID-positive, previously with A-fib w/ RVR, JOAN, hypernatremia, and sepsis-associated encephalopathy, mentation greatly improved, tolerating pur?es, but found to have extensive acute occlusive DVT of entire L lower extremity, currently on Eliquis 2.5 mg BID requiring escalation to full DVT treatment dosing. GI consulted for placement of PEG tube. #PEG Tube placement 2/ #Malnutrition Poor intake, cachectic appearance, failed swallow study 3x. Speech therapy following, stated patient has improved now tolerating pur?es but still n.p.o. except for meds. 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 We will continue to follow the patient. Case discussed with my attending Dr. Cesar Rubi MD PGY-1 Attending Provider Attestation/Addendum Patient evaluated and personally examined Went over personally the documentation of my resident physician which I agree with Consent will be obtained for percutaneous endoscopic gastrostomy placement via fiberoptic esophagogastroduodenoscopy under intravenous moderate sedation Thank you for the opportunity to participate in the care of this patient
--- NOTE | 2025-05-31 19:02 | ESPR_ITS ---
<Statement entered by Harjeet Hollingsworth MD - 06/01/25 12:28> I personally evaluated examined the patient who has multiple medical problems as DVT as well acute deep vein thrombosis treated with Eliquis continues to remain the same as the patient is resident physician PGY 2 Dr. Steinberg agree with the treatment plan recommendation as documented Documentation for date of: 05/31/25 Subjective Subjective Interval history: Patient examined at bedside. Has no major complaints. Vitals are stable, telemetry reviewed patient in normal sinus rhythm rate 70?75. Labs reviewed potassium 3.5. Is on 2 L nasal cannula saturating well. Continue Eliquis 10 mg twice daily for 7 days followed with 5 mg twice daily. Exam Vital Signs Temp Pulse Resp BP Pulse Ox O2 Del Method O2 Flow Rate 98.0 F 69 21 H 125/60 96 Nasal Cannula 2 05/31/25 16:00 05/31/25 16:00 05/31/25 16:00 05/31/25 16:00 05/31/25 16:00 05/31/25 16:00 05/31/25 16:00 Narrative Exam General: More awake, alert, conversant, chronically ill-appearing but comfortable. HEENT: Mucous membranes moist. Lungs: Clear to auscultation; no rhonchi today; nonlabored breathing. Heart: Irregularly irregular rhythm, rate controlled; no murmurs. Abdomen: Soft, nontender, nondistended. Extremities/Skin: * Left thigh/buttock necrotic wound significantly improved, minimal residual eschar, no erythema or drainage. * Left leg DVT: No pain, swelling improved, no phlegmasia. Neuro: Alert, answers questions appropriately, oriented ?2; improved mentation. Lines/Drips: 2 L nasal cannula; all meds PO crushed in pur?e. Objective Labs 05/31/25 06:00 05/31/25 06:00 Labs: Laboratory Results - last 24 hr 05/31/25 06:00 WBC 8.7 RBC 3.37 L Hgb 10.1 L Hct 31.8 L MCV 94 MCH 30.0 MCHC 31.8 RDW Std Deviation 46.9 H Plt Count 231 Neut % (Auto) 65 Lymph % (Auto) 20 [place] % (Auto) 12 Eos % (Auto) 1 Baso % (Auto) 1 Neut # (Auto) 5.6 Lymph # (Auto) 1.8 [place] # (Auto) 1.0 H Eos # (Auto) 0.1 Baso # (Auto) 0.0 Immature Gran # (Auto) 0.12 H Absolute Nucleated RBC 0.02 H Immature Gran % 1 H Nucleated RBC % 0 Sodium 148 H Potassium 3.5 D Chloride 112 H Carbon Dioxide 25.3 Anion Gap 11 BUN < 5 L Creatinine 1.1 Estim Creat Clear Calc 41.2 L eGFR > 60 BUN/Creatinine Ratio 5 L Glucose 111 H Calculated Osmolality 292 Calcium 7.5 L Corrected Calcium 8.5 Total Bilirubin 0.7 AST 54 H ALT 33 Alkaline Phosphatase 64 Total Protein 5.6 L Albumin 2.7 L Globulin 2.9 Albumin/Globulin Ratio 0.9 L ABG Interpretation ABG results: 05/24/25 13:36 ABG pH 7.39 ABG pCO2 25 L ABG pO2 153 H ABG HCO3 15 L ABG O2 Saturation 99 H ABG Base Excess -8 L Quality Measures Quality Measures sepsis Current suspected stage: sepsis Possible source: skin/soft tissue Blood cultures ordered: completed in ED Antibiotic ordered: Yes Advance care planning discussed with:: patient Assessment & Plan Assessment Current Active Medications: Generic Name Dose Route Start Last Admin Trade Name Freq PRN Reason Stop Dose Admin Acetaminophen 650 mg 05/24/25 18:27 05/25/25 16:19 Acetaminophen Supp 650 Mg Supp NE 06/23/25 18:26 650 mg Q6HR PRN Administration Fever > 100.4 or pain 1-5 Albuterol/Ipratropium 3 ml 05/25/25 18:48 Albuterol/Ipratropium (Duoneb) Rt Reyna 3 Ml Nebu INH 06/24/25 18:47 Q2HR PRN SHORTNESS OF BREATH OR WHEEZE Albuterol/Ipratropium 3 ml 05/25/25 19:00 05/31/25 13:43 Albuterol/Ipratropium (Duoneb) Rt Reyna 3 Ml Nebu INH 06/24/25 18:59 Not Given Q6HRRT [facility] Amiodarone HCl 200 mg 05/28/25 21:00 05/31/25 09:43 Amiodarone Hcl 200 Mg Tablet PO 06/27/25 20:59 Not Given BID [facility] Apixaban 10 mg 05/30/25 21:00 05/31/25 09:43 Apixaban 2.5 Mg Tablet PO 06/06/25 09:01 Not Given BID [facility] Calcium Carbonate 600 mg 05/26/25 09:00 05/31/25 09:43 Calcium Carbonate 600 Mg Tablet PO 06/25/25 08:59 Not Given QDAY [facility] Dextrose 1,000 mls @ 75 mls/hr 05/29/25 07:30 05/31/25 14:29 D5w IV 06/28/25 07:29 75 mls/hr .[id number] [facility] Administration Methylprednisolone Sodium Succinate 60 mg 05/26/25 21:00 Methylprednisolone Sod Succ 40 Mg/Ml Vial IV 06/02/25 20:59 On Hold: 05/26/25 21:00 Q12HR [facility] Multivitamins 1 tab 05/28/25 12:45 05/31/25 09:43 Multivitamins Tablet PO 06/27/25 12:44 Not Given QDAY [facility] Ondansetron HCl 4 mg 05/24/25 18:27 Ondansetron Inj 2 Mg/Ml Inj 2 Ml IVP 06/23/25 18:26 Q6H PRN NAUSEA OR VOMITING Protocol Pantoprazole Sodium 40 mg 05/24/25 18:45 05/31/25 09:35 Pantoprazole Inj 40 Mg Vial IVP 06/23/25 18:44 40 mg QDAY [facility] Administration Silver Sulfadiazine 0 gm 05/27/25 21:00 05/31/25 09:37 Silver Sulfadiazine Cr 1% 400g 400 Gm Jar TOP 06/03/25 20:59 1 appln BID [facility] Administration Thiamine HCl 100 mg 05/31/25 09:30 05/31/25 09:37 Thiamine Inj 100 Mg/Ml Vial 2 Ml IVP 06/30/25 09:29 100 mg QDAY [facility] Administration Plan The patient is an 89-year-old elderly female who was brought to the hospital for altered mental status. Patient apparently was found laying on the floor covered with feces, unresponsive, lethargic. Cardiology was consulted after finding extensive DVT. #Acute deep vein thrombosis, left lower extremity, while the patient is on a low dose of Eliquis #Chronic atrial fibrillation Continue with medical management. No need for the thrombectomy. The patient does have atrial fibrillation. Recommend apixaban 10 mg b.i.d. for 7 days, subsequently 5 mg b.i.d. because of deep vein thrombosis. No clinical indication for thrombectomy. Continue wiith amiodarone 200mg BID. #Altered mental status #Sepsis #Hiatal hernia #Pharyngeal dysphagia #Aspiration risk # Left Lower Lobe Pneumonia, improving # COVID-19 Infection Primary care team to manage above conditions and ongoing care needs. The patient's management plan was discussed with my attending physician Dr. Hollingsworth. Lexi Archibald, PGY-2
[2025-05-31] MEDS: APIXABAN 2.5 MG TABLET 10 MG PO (20:16)
[2025-05-31] MEDS: AMIODARONE HCL 200 MG TABLET PO (20:17)
[2025-06-01] VITALS (20 sets, daily range): BP systolic 99–128; BP diastolic 48–75; PULSE 70–82; RESP 14–31; TEMP 36.1–36.9; O2SAT 92–99; BMI 21.1; BMI 21.2
[2025-06-01] MEDS: ALBUTEROL/IPRATROPIUM (Duoneb) RT SOL 3 ML NEBU INH ×2 (00:53→12:07)
[2025-06-01] MEDS: DEXTROSE 5%-WATER 1,000 ML 75 ML IV (04:16)
[2025-06-01 05:14] LABS: Basophils # (Auto) 0.0 Thou/mm3 (0.0-0.2); Basophils % (Auto) 0 % (0-2.5); Eosinophils # (Auto) 0.2 Thou/mm3 (0.0-0.5); Eosinophils % (Auto) 2 % (0-10); Hematocrit 32.6 % (41.0-53.0); Hemoglobin 10.6 g/dL (13.5-16.0); Immature Granulocytes Auto 0.10 Thou/mm3 (0.00-0.00); Lymphocytes # (Auto) 1.8 Thou/mm3 (1.0-4.8); Lymphocytes % (Auto) 18 % (10-50); Mean Corpuscular HGB Conc 32.5 g/dl (31.0-37.0); Mean Corpuscular Hemoglobin 30.7 pg (25.0-35.0); Mean Corpuscular Volume 95 fL (80-100); Monocytes # (Auto) 1.1 Thou/mm3 (0.0-0.8); Monocytes % (Auto) 11 % (0-12); Neutrophils # (Auto) 6.5 Thou/mm3 (1.8-7.7); Neutrophils % (Auto) 68 % (37-80); Nucleated Red Blood Cell # 0.00 Thou/mm3 (0.00-0.00); Nucleated Red Blood Cell % 0 /100 WBC (0); Platelet Count 273 Thou/mm3 (140-440); RDW Standard Deviation 47.4 fL (35.1-43.9); Red Blood Count 3.45 Miln/mm3 (4.50-5.90); White Blood Count 9.6 Thou/mm3 (3.8-10.6)
[2025-06-01 06:00] LABS: Alanine Aminotransferase 28 U/L (10-49); Albumin, Serum 2.7 gm/dL (3.4-4.8); Albumin/Globulin Ratio 0.8 (1.2-2.2); Alkaline Phosphatase 65 U/L (46-116); Anion Gap 9 (7-16); Aspartate Amino Transferase 45 U/L (0-34); BUN/Creatinine Ratio 5 Ratio (12-20); Bilirubin,Total 0.7 mg/dL (0.3-1.2); Blood Urea Nitrogen < 5 mg/dL (9-23); Calcium 8.0 mg/dL (8.3-10.6); Calcium (Corrected) 9.0 mg/dL (8.5-10.1); Carbon Dioxide 27.9 mMol/L (20.0-31.0); Chloride 114 mMol/L (98-107); Creatinine (Component) 1.0 mg/dL (0.6-1.3); Estimated Creatinine Clearance 45.9 mL/min (>60); Globulin 3.2 gm/dL (2.3-3.5); Glucose 109 mg/dL (74-106); Osmolality,Calculated 298 (275-295); Potassium 3.9 mMol/L (3.4-5.1); Sodium 151 mMol/L (136-145); Total Protein 5.9 gm/dL (5.7-8.2); eGFR > 60 See Note
[2025-06-01] MEDS: THIAMINE INJ 100 MG/ML VIAL 2 ML IVP (09:11)
[2025-06-01] MEDS: AMIODARONE HCL 200 MG TABLET PO (09:12)
[2025-06-01] MEDS: CALCIUM CARBONATE 600 MG TABLET PO (09:12)
[2025-06-01] MEDS: MULTIVITAMINS TABLET 1 TAB PO (09:12)
[2025-06-01] MEDS: PANTOPRAZOLE 40 MG TABLET PO (09:13)
[2025-06-01] MEDS: SILVER SULFADIAZINE CR 1% 400G 400 GM JAR TOP (09:26)
--- NOTE | 2025-06-01 09:40 | XR_ITS ---
Upright AP portable chest film on 06/01/2025 at 9:56 a.m. CLINICAL INDICATION: Rule out pleural effusion Comparison study 05/27/2025 FINDINGS: Heart size and mediastinum and hilar regions appear radiographically normal. On the previous film the left hemidiaphragm was significantly elevated with a minimal patch of subsegmental atelectasis in the posterior medial base of the left lower lobe. The left hemidiaphragm has now returned to normal position there is still is the impression of probable minimal infiltrate/atelectasis in the retrocardiac portion of the left lower lobe. In all other areas both lungs are clear and there is no evidence of pleural fluid. 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 IMPRESSION: 1. On the previous film there was marked elevation left hemidiaphragm with patchy infiltrate or atelectasis in the medial base of the left lower lobe. The left hemidiaphragm is now returned to normal position and there is been definite improvement in the left lower lobe infiltrate, however I cannot exclude the possibility of some mild interstitial infiltrate in the retrocardiac portion of the left lower lobe. I definitely recommend a PA and good-quality lateral chest film to better evaluate this area. 2. Status post cholecystectomy, major diffuse osteoporosis. 3 given the history that the patient swallowed his dentures , then the 2 small metallic densities which at first glance were felt to be surgical clips, could represent a foreign body in the distal esophagus. If the patient is still symptomatic in this regard, I would recommend performing an esophagram just to rule out this possibility
--- NOTE | 2025-06-01 11:40 | ESPR_ITS ---
Documentation for date of: 06/01/25 Subjective Subjective Interval history: No acute overnight events. Patient more awake, interactive, feels ?okay? today. Denies shortness of breath, cough, chest pain, leg pain, abdominal pain, or bleeding. Reports no new complaints. Soft tissue infection improving significantly, left thigh wound almost resolved with no erythema. Breathing well on 2 L nasal cannula, saturating 98%. Had a family discussion with and daughter (review event note) proceding with peg tube placement This morning patient is refusing his medications and refusing lab redraws for sodium trend. Exam Vital Signs Temp Pulse Resp BP Pulse Ox O2 Del Method O2 Flow Rate 97.5 F 79 23 H 104/68 97 Nasal Cannula 3 06/01/25 08:00 06/01/25 09:12 06/01/25 08:00 06/01/25 09:12 06/01/25 08:00 06/01/25 08:00 06/01/25 08:00 Narrative Exam General: More awake, alert, conversant, chronically ill-appearing but comfortable. HEENT: Mucous membranes moist. Lungs: Clear to auscultation; no rhonchi today; nonlabored breathing. Heart: Irregularly irregular rhythm, rate controlled; no murmurs. Abdomen: Soft, nontender, nondistended. Extremities/Skin: * Left thigh/buttock necrotic wound significantly improved, minimal residual eschar, no erythema or drainage. * Left leg DVT: No pain, swelling improved, no phlegmasia. Neuro: Alert, answers questions appropriately, oriented ?2; improved mentation. Lines/Drips: 2 L nasal cannula; all meds PO crushed in pur?e. Objective Labs 06/01/25 04:15 06/01/25 23:34 Labs: Laboratory Results - last 24 hr 06/01/25 04:15 WBC 9.6 RBC 3.45 L Hgb 10.6 L Hct 32.6 L MCV 95 MCH 30.7 MCHC 32.5 RDW Std Deviation 47.4 H Plt Count 273 D Neut % (Auto) 68 Lymph % (Auto) 18 Eddy % (Auto) 11 Eos % (Auto) 2 Baso % (Auto) 0 Neut # (Auto) 6.5 Lymph # (Auto) 1.8 Eddy # (Auto) 1.1 H Eos # (Auto) 0.2 Baso # (Auto) 0.0 Immature Gran # (Auto) 0.10 H Absolute Nucleated RBC 0.00 Immature Gran % 1 H Nucleated RBC % 0 Sodium 151 H Potassium 3.9 Chloride 114 H Carbon Dioxide 27.9 Anion Gap 9 BUN < 5 L Creatinine 1.0 Estim Creat Clear Calc 45.9 L eGFR > 60 BUN/Creatinine Ratio 5 L Glucose 109 H Calculated Osmolality 298 H Calcium 8.0 L Corrected Calcium 9.0 Total Bilirubin 0.7 AST 45 H ALT 28 Alkaline Phosphatase 65 Total Protein 5.9 Albumin 2.7 L Globulin 3.2 Albumin/Globulin Ratio 0.8 L ABG Interpretation ABG results: 05/24/25 13:36 ABG pH 7.39 ABG pCO2 25 L ABG pO2 153 H ABG HCO3 15 L ABG O2 Saturation 99 H ABG Base Excess -8 L Quality Measures Quality Measures sepsis Current suspected stage: sepsis (resolved) Possible source: skin/soft tissue Blood cultures ordered: completed in ED Antibiotic ordered: Yes Advance care planning discussed with:: patient and spouse Assessment & Plan Assessment Current Active Medications: Generic Name Dose Route Start Last Admin Trade Name Freq PRN Reason Stop Dose Admin Acetaminophen 650 mg 05/24/25 18:27 05/25/25 16:19 Acetaminophen Supp 650 Mg Supp [place] 06/23/25 18:26 650 mg Q6HR PRN Administration Fever > 100.4 or pain 1-5 Albuterol/Ipratropium 3 ml 05/25/25 18:48 Albuterol/Ipratropium (Duoneb) Rt Reyna 3 Ml Nebu INH 06/24/25 18:47 Q2HR PRN SHORTNESS OF BREATH OR WHEEZE Albuterol/Ipratropium 3 ml 05/25/25 19:00 06/01/25 07:55 Albuterol/Ipratropium (Duoneb) Rt Reyna 3 Ml Nebu INH 06/24/25 18:59 Not Given Q6HRRT ODILIA Amiodarone HCl 200 mg 05/28/25 21:00 06/01/25 09:12 Amiodarone Hcl 200 Mg Tablet PO 06/27/25 20:59 200 mg BID ODILIA Administration Apixaban 10 mg 05/30/25 21:00 05/31/25 20:16 Apixaban 2.5 Mg Tablet PO 10 mg On Hold: 06/01/25 08:48 BID ODILIA Administration Calcium Carbonate 600 mg 05/26/25 09:00 06/01/25 09:12 Calcium Carbonate 600 Mg Tablet PO 06/25/25 08:59 600 mg QDAY ODILIA Administration Dextrose 1,000 mls @ 100 mls/hr 06/01/25 07:22 D5w IV 07/01/25 07:21 On Hold: 06/01/25 09:40 .Q10H ODILIA Multivitamins 1 tab 05/28/25 12:45 06/01/25 09:12 Multivitamins Tablet PO 06/27/25 12:44 1 tab QDAY ODILIA Administration Ondansetron HCl 4 mg 05/24/25 18:27 Ondansetron Inj 2 Mg/Ml Inj 2 Ml IVP 06/23/25 18:26 Q6H PRN NAUSEA OR VOMITING Protocol Pantoprazole Sodium 40 mg 06/01/25 09:00 06/01/25 09:13 Pantoprazole 40 Mg Tablet PO 07/01/25 08:59 40 mg QDAY ODILIA Administration Silver Sulfadiazine 0 gm 05/27/25 21:00 06/01/25 09:26 Silver Sulfadiazine Cr 1% 400g 400 Gm Jar TOP 06/03/25 20:59 1 appln BID ODILIA Administration Thiamine HCl 100 mg 05/31/25 09:30 06/01/25 09:11 Thiamine Inj 100 Mg/Ml Vial 2 Ml IVP 06/30/25 09:29 100 mg QDAY ODILIA Administration Plan 89M with severe sepsis (now resolved) secondary to soft tissue infection + LLL pneumonia, COVID-positive, previously with A-fib w/ RVR, JOAN, hypernatremia, and sepsis-associated encephalopathy, now on 4 L NC, mentation greatly improved, tolerating pur?es, but found to have extensive acute occlusive DVT of entire L lower extremity, currently on Eliquis 2.5 mg BID requiring escalation to full DVT treatment dosing. Tonight to place PEG tube with GI. #Pharyngeal dysphagia #Aspiration risk #PEG Tube placement 2/2 Has persistent dysphagia on multiple evaluation by speech therapy. Although able to swallow pills safely. Patient had recommended videofluoroscopy swallow study and MBS which will be done on Saturday. Attempt for NG tube placement failed today as patient uncooperative. Patient refusing all oral medications, refusing barium swallow study. Will speak to daughter about possible PEG tube placement or goals of care. * Keep NPO until mental status improves. * Antibiotic coverage adequate for aspiration. * Continue D5W * PEG tube placement tonight. # Acute Extensive Left Lower Extremity DVT Extensive acute occlusive thrombus involving entire deep venous system of the LLE confirmed by Doppler yesterday. Patient was on Eliquis 2.5 mg BID, which is not therapeutic for acute DVT. No bleeding, Hgb stable. Speech therapy allows crushed pills in pur?e -> safe for DOAC administration. Plan: * Escalate to full therapeutic DVT dosing of Eliquis: 10 mg BID x 7 days, then 5 mg BID. * Monitor for any bleeding (stool, urine, gums). * Daily CBC. * If unable to tolerate pur?e in subsequent days -> switch to heparin drip temporarily. * Holding Eliquis for peg tube placement # Sepsis without shock (resolved) 89-year-old male presenting with severe sepsis secondary to Suspected necrotizing soft tissue infection (possible necrotizing fasciitis vs extensive cellulitis) involving the left upper thigh/buttock (25?15 cm necrotic plaque) and medial right thigh necrotic lesions Associated with altered mental status, mottled cool skin, lactic acidosis (5.6 - > 4.3), WBC 18.6, and acute kidney injury. Patient is only responsive to painful stimuli, indicating sepsis-associated encephalopathy?. Skin findings are extensive and highly concerning for a rapidly progressive deep soft tissue infection. SOFA score: 9 (Resp 2, Liver 1, MILK VENDOR 4, Renal 1, CV 1). LRINEC score: 4 Low risk, but not no risk. 05/26: Sepsis with organ dysfunction (AMS, JOAN, lactate fluctuations). Sources: necrotic soft tissue infection + pneumonia + COVID. WBC improving. Lactic acid overall trending down but fluctuating slightly. 05/27: Patient's mentation improved, white blood cell improving, lactic acid resolved. 05/28: WBC improving (8.2), lactate trending downward (2.1), mentation improving, verbal today. Plan: * DC Vancomycin + Zosyn 3.375 Q8h (05/24-05/30) * Maintain MAP >65 * Strict I/Os * Blood cultures ?2 negarive * Daily CBC, CMP, coagulation studies. * Continuous monitoring for progression of sepsis, worsening perfusion, or mental status deterioration. # Soft Tissue Infection, improving Large necrotic plaque (25?15 cm) on left thigh/buttock and multiple right thigh necrotic lesions, mottled skin, severe systemic toxicity No current concern for Necrotizing fascitis No abscess or osteomyelitis on CT abdomen/pelvis, but CT cannot rule out nec fasc. If clinically worsens will reevaluate and consider consult surgerey 05/27: Wound care team spoke to me and stated wound is much improved and on admission no clinical suspicion for debridement. 05/31: Large left thigh/buttock plaque nearly resolved. No erythema, no drainage, no signs of nec fasc. Plan: * Wound care following. * Local wound care only now. * Continue daily skin checks. * No further antibiotics needed unless clinical change occurs. # Left Lower Lobe Pneumonia, improving CT abdomen/pelvis shows significant left-base pneumonia, likely contributing to sepsis. Procalcitonin 0.56 supports bacterial infection. Improving pneumonia, stable on 4 L nasal cannula. Plan: * DC Zosyn 05/24-05/30 * Repeat CXR in 24 hrs or earlier if clinical decline. * Evaluate for possible aspiration (see separate problem below). # COVID-19 Infection Plan: * Supportive care. * Monitor for worsening hypoxia. * Continue isolation precautions. # Atrial Fibrillation with RVR Newly diagnosed overnight was started on amio and heparin drip, transition to IV as patient failed swallow study. Transition back to oral crushed with pur?ed diet, approved by speech therapy. No liquids. Plan: * Continue amiodarone 200 mg PO. * Continue Eliquis as above. * Telemetry monitoring. * Repeat EKG as needed. # Sepsis-Associated Encephalopathy Profound AMS; only responsive to painful stimuli on presentation, when seen patient he responded to verbal after waking patient up physically No acute intracranial hemorrhage or stroke on CT head. Likely due to sepsis, metabolic derangements, and hypoperfusion. Improvement significantly since past few days conversating now. Plan: * Serial neuro exams. * Avoid sedating or neurotoxic medications. * Repeat CT if AMS does not improve with sepsis treatment. # Acute Kidney Injury, resolved Cr 2.1, GFR 30, BUN 72. Baseline unknown. Likely pre-renal from sepsis, hypoperfusion, and dehydration. This monring Cr 1.1 Plan: * Continue IV fluid resuscitation. * Trend BMP daily. * Will consider consult nephrology if worsening or oliguria develops. * Adjust all renally cleared medications. # Cirrhosis Pattern (suspected based on CT) CT abdomen shows cirrhosis pattern Ammonia mildly elevated at 49; could contribute to encephalopathy but cannot diagnose without clinical history. Plan: * Trend liver function tests. * Consider lactulose after sepsis and metabolic causes addressed. * GI consult if clinical suspicion rises. # Lactic Acidosis, resolved Lactate 5.6 -> 4.3->2.7->3.9, improving with fluids. Indicative of tissue hypoperfusion from severe sepsis. Lactic acid flucutaing, down and up last is 3.8 from 2.1 this morning 05/27: Lactate this morning 1.8. Plan: * Continue resuscitation. * Stop trend. * Treat underlying infection sources. # Electrolyte Abnormalities, improving # Mild hypernatremia #Hypokalemia #Hyperchloremia #Hypomagnesemia #Hypophosphatemia Sodium 151, potassium 3.5, chloride 112, magnesium 1.7. Patient refusing lab redraw's for sodium check. Plan: * Monitor electrolytes daily. * Continue D5W. * Repleted potassium and phosphate. * Replace as needed. # NSTEMI type II (resolved) Troponin 0.145 in setting of systemic illness No evidence of ACS on imaging/initial evaluation. Last troponin 0.134 downtrending Plan: * Stopped trending. * Tele monitoring. # Malnutrition Poor intake, cachectic appearance, failed swallow study. Speech therapy following will reassess tomorrow, stated patient has improved now tolerating pur?es but still n.p.o. except for meds. PEG Tube placement today Plan: * Continue NPO until swallow study completed. * Nutrition consult, following. Health Maintenance: Disposition: Admit to telemetry for monitoring Feeding: NPO except meds with pur?ed not water. Thromboprophylaxis: eliquis 10 mg bid (05/30-06/05) then switch to 5 BID on 06/06 GI Prophylaxis: IV Protonix. Code Status: Full code; reassess if prognosis changes. Antibiotic: DC Vanc and zosyn [05/24-05/30] ----- Plan discussed with attending physician Dr. Mario Meredith MD PGY-1 Internal Medicine Attending Provider Attestation/Addendum I have seen and examined the patient. I was physically present for the rodriguez portions of the services provided including history, physical exam, diagnosis, treatment plans and orders. I agree with assessment and plan of care as documented by residents. Even though this this note was carefully revised there may still be minor errors in crankshaft grinder due to voice recognition software. Mervat Martin MD
[2025-06-01 16:29] LABS: Sodium 148 mMol/L (136-145)
--- NOTE | 2025-06-01 18:35 | ESPR_ITS ---
<Statement entered by Harjeet Hollingsworth MD - 06/04/25 12:52> I personally examined the patient evaluated the resident physician PGY 2 Dr. Steinberg patient advanced multiple problems acute DVT started on heparin anticoagulation patient is continues to improve started on Eliquis as well does not complain of any cardiac symptoms or shortness of breath no evidence of pulm emboli evaluated patient with resident physician agree with the treatment plan recommendation as documented. Documentation for date of: 06/01/25 Subjective Subjective Interval history: Patient examined at bedside. Has no major complaints. Vitals are stable, telemetry reviewed patient in normal sinus rhythm rate 70?75. Labs reviewed potassium 3.5. Is on 2 L nasal cannula saturating well. Continue Eliquis 10 mg twice daily for 7 days followed with 5 mg twice daily. 06/01: No acute events overnight, blood pressure 102/72 heart rate 80. No major complaints. Telemetry reviewed patient in normal sinus rhythm. Is on 2 L nasal cannula saturating well. Continue Eliquis 10 mg twice daily for 7 days followed with 5 mg twice daily. Exam Vital Signs Temp Pulse Resp BP Pulse Ox O2 Del Method O2 Flow Rate 97.1 F 75 22 H 105/48 L 92 L Nasal Cannula 2 06/01/25 16:00 06/01/25 16:00 06/01/25 16:00 06/01/25 16:00 06/01/25 16:00 06/01/25 16:00 06/01/25 16:00 Narrative Exam General: More awake, alert, conversant, chronically ill-appearing but comfortable. HEENT: Mucous membranes moist. Lungs: Clear to auscultation; no rhonchi today; nonlabored breathing. Heart: Irregularly irregular rhythm, rate controlled; no murmurs. Abdomen: Soft, nontender, nondistended. Extremities/Skin: * Left thigh/buttock necrotic wound significantly improved, minimal residual eschar, no erythema or drainage. * Left leg DVT: No pain, swelling improved, no phlegmasia. Neuro: Alert, answers questions appropriately, oriented ?2; improved mentation. Lines/Drips: 2 L nasal cannula; all meds PO crushed in pur?e. Objective Labs 06/01/25 04:15 06/01/25 16:09 Labs: Laboratory Results - last 24 hr 06/01/25 06/01/25 04:15 16:09 WBC 9.6 RBC 3.45 L Hgb 10.6 L Hct 32.6 L MCV 95 MCH 30.7 MCHC 32.5 RDW Std Deviation 47.4 H Plt Count 273 D Neut % (Auto) 68 Lymph % (Auto) 18 [place] % (Auto) 11 Eos % (Auto) 2 Baso % (Auto) 0 Neut # (Auto) 6.5 Lymph # (Auto) 1.8 [place] # (Auto) 1.1 H Eos # (Auto) 0.2 Baso # (Auto) 0.0 Immature Gran # (Auto) 0.10 H Absolute Nucleated RBC 0.00 Immature Gran % 1 H Nucleated RBC % 0 Sodium 151 H 148 H Potassium 3.9 Chloride 114 H Carbon Dioxide 27.9 Anion Gap 9 BUN < 5 L Creatinine 1.0 Estim Creat Clear Calc 45.9 L eGFR > 60 BUN/Creatinine Ratio 5 L Glucose 109 H Calculated Osmolality 298 H Calcium 8.0 L Corrected Calcium 9.0 Total Bilirubin 0.7 AST 45 H ALT 28 Alkaline Phosphatase 65 Total Protein 5.9 Albumin 2.7 L Globulin 3.2 Albumin/Globulin Ratio 0.8 L ABG Interpretation ABG results: 05/24/25 13:36 ABG pH 7.39 ABG pCO2 25 L ABG pO2 153 H ABG HCO3 15 L ABG O2 Saturation 99 H ABG Base Excess -8 L Quality Measures Quality Measures sepsis Current suspected stage: sepsis Possible source: skin/soft tissue Blood cultures ordered: completed in ED Antibiotic ordered: Yes Advance care planning discussed with:: patient Assessment & Plan Assessment Current Active Medications: Generic Name Dose Route Start Last Admin Trade Name Freq PRN Reason Stop Dose Admin Acetaminophen 650 mg 05/24/25 18:27 05/25/25 16:19 Acetaminophen Supp 650 Mg Supp [place] 06/23/25 18:26 650 mg Q6HR PRN Administration Fever > 100.4 or pain 1-5 Albuterol/Ipratropium 3 ml 05/25/25 18:48 Albuterol/Ipratropium (Duoneb) Rt Reyna 3 Ml Nebu INH 06/24/25 18:47 Q2HR PRN SHORTNESS OF BREATH OR WHEEZE Albuterol/Ipratropium 3 ml 05/25/25 19:00 06/01/25 12:07 Albuterol/Ipratropium (Duoneb) Rt Reyna 3 Ml Nebu INH 06/24/25 18:59 3 ml Q6HRRT ODILIA Administration Amiodarone HCl 200 mg 05/28/25 21:00 06/01/25 09:12 Amiodarone Hcl 200 Mg Tablet PO 06/27/25 20:59 200 mg BID ODILIA Administration Apixaban 10 mg 05/30/25 21:00 05/31/25 20:16 Apixaban 2.5 Mg Tablet PO 10 mg On Hold: 06/01/25 08:48 BID ODILIA Administration Calcium Carbonate 600 mg 05/26/25 09:00 06/01/25 09:12 Calcium Carbonate 600 Mg Tablet PO 06/25/25 08:59 600 mg QDAY ODILIA Administration Dextrose 1,000 mls @ 100 mls/hr 06/01/25 07:22 D5w IV 07/01/25 07:21 On Hold: 06/01/25 09:40 .Q10H ODILIA Multivitamins 1 tab 05/28/25 12:45 06/01/25 09:12 Multivitamins Tablet PO 06/27/25 12:44 1 tab QDAY ODILIA Administration Ondansetron HCl 4 mg 05/24/25 18:27 Ondansetron Inj 2 Mg/Ml Inj 2 Ml IVP 06/23/25 18:26 Q6H PRN NAUSEA OR VOMITING Protocol Pantoprazole Sodium 40 mg 06/01/25 09:00 06/01/25 09:13 Pantoprazole 40 Mg Tablet PO 07/01/25 08:59 40 mg QDAY ODILIA Administration Silver Sulfadiazine 0 gm 05/27/25 21:00 06/01/25 09:26 Silver Sulfadiazine Cr 1% 400g 400 Gm Jar TOP 06/03/25 20:59 1 appln BID ODILIA Administration Thiamine HCl 100 mg 05/31/25 09:30 06/01/25 09:11 Thiamine Inj 100 Mg/Ml Vial 2 Ml IVP 06/30/25 09:29 100 mg QDAY ODILIA Administration Plan The patient is an 89-year-old elderly female who was brought to the hospital for altered mental status. Patient apparently was found laying on the floor covered with feces, unresponsive, lethargic. Cardiology was consulted after finding extensive DVT. #Acute deep vein thrombosis, left lower extremity, while the patient is on a low dose of Eliquis #Chronic atrial fibrillation Continue with medical management. No need for the thrombectomy. The patient does have atrial fibrillation. Recommend apixaban 10 mg b.i.d. for 7 days, subsequently 5 mg b.i.d. because of deep vein thrombosis. No clinical indication for thrombectomy. Continue wiith amiodarone 200mg BID. #Altered mental status #Sepsis #Hiatal hernia #Pharyngeal dysphagia #Aspiration risk # Left Lower Lobe Pneumonia, improving # COVID-19 Infection Primary care team to manage above conditions and ongoing care needs. The patient's management plan was discussed with my attending physician Dr. Hollingsworth. Lexi Archibald, PGY-2
--- NOTE | 2025-06-01 19:20 | PC.NURSE ---
Pt transferred to EGD for PEG tube insertion at 1915
--- NOTE | 2025-06-01 20:35 | PC.NURSE ---
Pt returned from attempted PEG tube placement procedure at 2030, resting comfortably, HR 73, 0xygen saturation at 98% on 2L, BP 99/60
[2025-06-01 23:53] LABS: Sodium 147 mMol/L (136-145)
--- NOTE | 2025-06-02 01:24 | DES_ITS ---
Documentation for date of: 06/02/25 Pronouncement Note Date and Time of Date of : 06/02/25 Time of : 00:23 PCOD Preliminary cause of : Cardiopulmonary arrest Contributing Factors (1) Sepsis: (2) Pneumonia: (3) Cellulitis: Summary Additional details: LACEY STAPLES was called around 12:05 AM on 06/02/2025 for patient in room #279, Kenneth Joseph as patient noted to have low heart rate on telemetry monitoring and noted to have agonal breathing when examined at the bedside. Our team immediately arrived at the room and there are nurses at the bedside, doing the CPR, a dose of epinephrine is given. CPR was done for 15 seconds. Review of the patient's chart showed the CODE STATUS as DNR. So immediately CPR was stopped. Patient noted to have pulseless electrical activity, likely due to the epinephrine given and noted to have agonal breaths 1 to 2 breaths/min. Noted to have no pulse, heart sounds. Immediately and daughter were called and notified about the patient's condition. Around 12:23 AM, upon examination, noted no heart sounds after 2 minutes of continuous auscultation. Absent corneal reflex, vestibulo ocular reflex, pupillary reflex. Patient is pronounced to be and attending physician, Dr. Rivera is at the bedside. Patient was seen and discussed with my senior resident Elbert Fiore, PGY2. Sonny Alberto DO PGY-1 Additional Data Confirmation of : no pulse, no respirations, no heart sounds and pupils fixed and dilated Family: contacted Additional persons at bedside: other Attending/PCP notified?: Yes Attending physician: Reyes Rivera MD Was code activated?: Yes Autopsy requested?: No estate tax examiner notified?: No Organ bank notified?: No Advance directives: Yes
--- NOTE | 2025-06-02 07:43 | DES_ITS ---
<Statement entered by Mervat Martin MD - 06/02/25 15:35> Discussed patient with residents, agree with the note as documented below. Even though this this note was carefully revised there may still be minor errors in optical instrument specialist due to voice recognition software. Mervat Martin MD Documentation for date of: 06/02/25 Summary Date and Time Date of admission: 05/24/25 18:29 Summary Hospital Course: Mr. Kenneth Joseph was an 89-year-old male with limited known medical history who was found down at home, covered in feces, minimally responsive, and brought to the emergency department for altered mental status. Initial evaluation revealed severe sepsis with suspected sources including extensive soft tissue infection/cellulitis of the left thigh and buttock, [id number] pneumonia, and COVID-19 infection. He presented with lactic acidosis, acute kidney injury, leukocytosis, and profound metabolic encephalopathy. He was started on broad-spectrum antibiotics, IV fluids, and supportive care. Imaging demonstrated necrotic-appearing soft tissue lesions on the left thigh and buttock without drainable abscess. Wound care was consulted and followed the patient closely; over the next several days the tissue appearance improved and no operative debridement was recommended. His pneumonia improved clinically, and antibiotics were discontinued once his infectious parameters normalized. During hospitalization he was also found to have atrial fibrillation with RVR, for which he was treated with IV, then oral, amiodarone, and anticoagulated with Eliquis. A venous Doppler study revealed extensive acute occlusive DVT of the left lower extremity, and anticoagulation was escalated to therapeutic dosing per cardiology recommendations. The patient had persistent dysphagia and repeatedly failed swallow evaluations, raising concerns for long-term nutritional support. A detailed family meeting was held to discuss goals of care, including options of PEG tube placement versus transition to comfort-focused care. The family elected to proceed with PEG evaluation, and GI was consulted. At that time the patient remained hemodynamically stable on the medical floor without vasopressor requirement. His mental status fluctuated but had shown some improvement, and he was intermittently verbal. On the evening of 06/01/2025, nursing documented new bradycardia and agonal respirations on telemetry monitoring. At approximately 12:05 AM on 06/02/2025, a Code Blue was activated due to declining heart rate and agonal breathing. CPR had been initiated prior to physician arrival, and one dose of epinephrine was administered. Review of the chart confirmed the patient?s DNR status, at which point resuscitative efforts were stopped. Upon examination at 00:23 AM, the patient had no respirations, no heart sounds after 2 minutes of auscultation, no palpable pulse, absent corneal and vestibulo-ocular reflexes, and fixed, dilated pupils. He was pronounced by Dr. Rivera. The patient?s and daughter were contacted immediately and informed of his passing. ----- Plan discussed with attending physician Dr. Mario Meredith MD PGY-1 Internal Medicine Additional Data Attending physician: Mervat Martin MD Visit Providers Provider Primary care physician: Physician No Primary/Family Consults: 05/24/25 18:28 PT [Referral Physical Therapy] Routine Comment: Physician Instructions: Referral Wound Care Routine Comment: 05/24/25 20:09 Referral Registered Dietitian Routine Comment: Advise for NGT supplements 05/24/25 21:13 Referral Respiratory Therapy Routine Comment: 05/25/25 10:33 Consult to General Surgery Urgent Comment: r/o nec fasc in patient with sepsis Consulting Provider: Jr Vallecillo 05/26/25 11:27 Referral Speech Therapy Routine Comment: 05/30/25 10:37 Consult to Cardiology Routine Comment: Occlusive LE DVT Consulting Provider: Harjeet Hollingsworth 05/31/25 14:48 Consult to Gastroenterology Routine Comment: PEG tube Consulting Provider: Duarte Guerrero Referral Hospice Routine Comment: 06/01/25 19:46 Referral Nutritional Services Routine Comment: PEG TUBE FEEDING Diagnosis Contributing Factors (1) Sepsis: (2) Pneumonia: (3) Cellulitis: Discharge Plan Plan Patient Disposition: Prescriptions/Referrals Referrals: No Primary/Family,Physician [Primary Care Provider] Patient/Caregiver Discharge Instructions Print Language: Yi
== END 2025-06-02 02:36 | disposition expired | DRG 871 ==
LOC: SERX 18:23 → SERHOLD 18:59 → S2NX 20:32
PROVIDERS: Specialist; Student in an Organized Health Care Education/Training Program; Admitting Provider Student in an Organized Health Care Education/Training Program; Emergency Provider Emergency Medicine; Visit Provider Internal Medicine
PROC: 0DH63UZ Insertion of Feeding Device into Stomach, Percutaneous Approach (ICD-10-PCS; CPT 43246; principal; 2025-06-01 19:00)
DX: A41.89 Other specified sepsis (principal); G93.41 Metabolic encephalopathy; J18.9 Pneumonia, unspecified organism; J12.82 Pneumonia due to coronavirus disease 2019; U07.1 COVID-19; I96 Gangrene, not elsewhere classified; N17.9 Acute kidney failure, unspecified; E87.20 Acidosis, unspecified; R64 Cachexia; Z68.1 Body mass index [BMI] 19.9 or less, adult; E46 Unspecified protein-calorie malnutrition; E87.0 Hyperosmolality and hypernatremia; E87.1 Hypo-osmolality and hyponatremia; I48.20 Chronic atrial fibrillation, unspecified; I82.402 Acute embolism and thrombosis of unspecified deep veins of left lower extremity; L03.90 Cellulitis, unspecified; R65.20 Severe sepsis without septic shock; E87.6 Hypokalemia; E87.8 Other disorders of electrolyte and fluid balance, not elsewhere classified; E83.42 Hypomagnesemia; E83.39 Other disorders of phosphorus metabolism; Z66 Do not resuscitate; K44.9 Diaphragmatic hernia without obstruction or gangrene; F03.90 Unspecified dementia, unspecified severity, without behavioral disturbance, psychotic disturbance, mood disturbance, and anxiety; I46.8 Cardiac arrest due to other underlying condition; R13.13 Dysphagia, pharyngeal phase; Z51.5 Encounter for palliative care; Z78.9 Other specified health status; Z79.01 Long term (current) use of anticoagulants; Z79.899 Other long term (current) drug therapy; Z88.5 Allergy status to narcotic agent
CPT/HCPCS: 36415; 36600; 51702; 70450; 71045; 74177; 80053; 80061; 80069; 80202; 81001; 82140; 82436; 82550; 82803; 83036; 83605; 83690; 83735; 83880; 84100; 84133; 84145; 84295; 84300; 84443; 84484; 85025; 85610; 85730; 86140; 87040; 87081; 87086; 87811; 92526; 92610; 93005; 93306; 93970; 94640; 94664; 94667; 96361; 96365; 96366; 97162; 99285; A4314; A4649; A9270; J0131; J0283; J1644; J1650; J2250; J2470; J2543; J3010; J3373; J3375; J3411; J3475; J7030; J7042; J7050; J7060; J7070; J7120; J7999; Q9967